=== PATIENT | male | born 1935 | race Caucasian/White ===

== ENCOUNTER 2018-11-14 17:08 | Emergency (ER) | payer OTHER ==
--- OUTSIDE RECORDS SUMMARY | 2018-11-14 17:10 | XMS REPORT | Clinical Summary ---
:1935 Author Organization [facility] Address [address] [place] [address] Care Team Providers Name Role Phone Unavailable Primary Care Provider Unavailable Allergies No Known Allergies Medications Medication Sig Dispensed Refills Start Date End Date Status traMADol (ULTRAM) Take 50 mg by mouth 0 Active 50 mg tablet every 6 (six) hours as needed for Pain. tiotropium Inhale 18 mcg by 0 Active (SPIRIVA) 18 mcg mouth via inhaler inhalation capsule daily. montelukast Take 10 mg by mouth 0 Active (SINGULAIR) 10 mg nightly. tablet losartan (COZAAR) Take 100 mg by mouth 0 Active 100 MG tablet daily. insulin glargine Inject 50 Units 0 Active (LANTUS) 100 subcutaneously unit/mL nightly Use as injectionIndication directed . s: type 2 diabetes mellitus insulin aspart Inject 25 Units 0 Active (NOVOLOG) 100 subcutaneously 3 unit/mL (three) times daily injectionIndication before meals. s: type 2 diabetes mellitus ezetimibe-simvastat Take 1 tablet by 0 Active in (VYTORIN) 10-10 mouth daily. mg per tablet budesonide-formoter Inhale 2 puffs by 0 Active ol (SYMBICORT) mouth via inhaler 2 160-4.5 (two) times daily. 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 Last Filed Vital Signs Not on file Plan of Treatment Not on file Results Not on fileafter 11/13/2017 Insurance Payer Benefit Plan / Subscriber ID Type Phone Address Group AETNA - MEDICARE AETNA MEDICARE HMO xxxxxxxx [phone] [address] [employer] C[employer] POS PPO [place] [id number] Advance Directives For more information, please contact:[address] [phone] Code Status Date Activated Date Inactivated Comments Full Code 01/23/2016 3:59 AM 02/08/2016 11:28 PM This code status was determined by: Patient
[2018-11-14] MEDS ORDERED: TETANUS & DIPHTHERIA TOX,ADULT 0.5 ML VIAL ONE (18:43)
--- NOTE | 2018-11-14 18:48 | RAD REPORT ---
EXAM DESCRIPTION: CT - Head Brain Wo Cont - 11/14/2018 6:31 pm CLINICAL HISTORY: Headache COMPARISON: CT head January 2009 TECHNIQUE: Axial 5 mm thick images of the head were obtained without IV contrast. All CT scans are performed using dose optimization technique as appropriate and may include automated exposure control or mA/KV adjustment according to patient size. FINDINGS: No intracranial hemorrhage, mass, edema or shift of mid-line structures. No acute infarcti on changes seen. No cortical edema or sulcal effacement. Moderate severity atrophy and chronic ischem ic changes are present progressive from 2008. Ventricles are in proportion to volume loss. Arterial t ree calcifications are present. Mastoid air cells and visualized portions of the paranasal sinuses are clear. No acute bony findings. IMPRESSION: No hemorrhage, mass or acute intracranial finding. Moderate severity atrophy and chronic ischemic change progressive from the 2008 comparison.
[2018-11-14] MEDS ORDERED: LIDOCAINE 1% MPF 30 ML VIAL ONE (19:14)
--- NOTE | 2018-11-14 19:25 | EDPHYS ---
Physician Documentation [facility] Name: Gonzalo Waldron Age: 82 yrs Sex: Male : 1935 Arrival Date: 11/14/2018 Time: 17:13 Bed 5 Private MD: ED Physician Vadim Grant HPI: 11/14 19:20 This 82 yrs old Male presents to ER via EMS with complaints of Laceration To pm1 Head. 19:20 The patient has a laceration related to: Sleeping occurred at home, The injury was pm1 accidental, Patient was sleeping on his recliner and he dreamed that he was falling. he got up to stop from falling and he slipped off his recliner and hit his head. No LOC, neck pain, vomiting. Laceration to left eyebrow and abrasion to left side of forehead. Onset: The symptoms/episode began/occurred just prior to arrival. Associated signs and symptoms: Pertinent negatives: deformity, dizziness, heavy bleeding, loss of consciousness, numbness distal to injury, suspected foreign body. The patient has not experienced similar symptoms in the past. Historical: - Allergies: 17:19 Tape; sg - PMHx: 17:19 COPD; Diabetes - NIDDM; Hyperlipidemia; Hypertension; Prostate Cancer; sg - Immunization history:: Adult Immunizations up to date. - Social history:: Smoking status: Patient/guardian denies using tobacco. - Ebola Screening: : Patient negative for fever greater than or equal to 101.5 degrees Fahrenheit, and additional compatible Ebola Virus Disease symptoms Patient denies exposure to infectious person Patient denies travel to an Ebola-affected area in the 21 days before illness onset No symptoms or risks identified at this time. ROS: 19:20 Constitutional: Negative for fever, chills, and weight loss, Eyes: Negative for injury, pm1 pain, redness, and discharge, ENT: Negative for injury, pain, and discharge, Neck: Negative for injury, pain, and swelling, Cardiovascular: Negative for chest pain, palpitations, and edema, Respiratory: Negative for shortness of breath, cough, wheezing, and pleuritic chest pain, Abdomen/GI: Negative for abdominal pain, nausea, vomiting, diarrhea, and constipation, Back: Negative for injury and pain, : Negative for injury, bleeding, discharge, and swelling, MS/Extremity: Negative for injury and deformity. 19:20 Neuro: Negative for headache, weakness, numbness, tingling, and seizure. 19:20 Skin: Positive for abrasion(s), laceration(s), of the face. Exam: 19:20 Constitutional: This is a well developed, well nourished patient who is awake, alert, pm1 and in no acute distress. 19:20 Eyes: Pupils equal round and reactive to light, extra-ocular motions intact. Lids and lashes normal. Conjunctiva and sclera are non-icteric and not injected. Cornea within normal limits. Periorbital areas with no swelling, redness, or edema. ENT: Nares patent. No nasal discharge, no septal abnormalities noted. Tympanic membranes are normal and external auditory canals are clear. Oropharynx with no redness, swelling, or masses, exudates, or evidence of obstruction, uvula midline. Mucous membranes moist. Neck: Trachea midline, no thyromegaly or masses palpated, and no cervical lymphadenopathy. Supple, full range of motion without nuchal rigidity, or vertebral point tenderness. No Meningismus. Chest/axilla: Normal chest wall appearance and motion. Nontender with no deformity. No lesions are appreciated. Cardiovascular: Regular rate and rhythm with a normal S1 and S2. No gallops, murmurs, or rubs. Normal PMI, no JVD. No pulse deficits. Respiratory: Lungs have equal breath sounds bilaterally, clear to auscultation and percussion. No rales, rhonchi or wheezes noted. No increased work of breathing, no retractions or nasal flaring. Abdomen/GI: Soft, non-tender, with normal bowel sounds. No distension or tympany. No guarding or rebound. No evidence of tenderness throughout. Back: No spinal tenderness. No costovertebral tenderness. Full range of motion. Skin: Warm, dry with normal turgor. Normal color with no rashes, no lesions, and no evidence of cellulitis. MS/ Extremity: Pulses equal, no cyanosis. Neurovascular intact. Full, normal range of motion. 19:20 Head/face: Noted is no obvious of injury or deformity except abrasion(s), that are mild, of the forehead, a laceration(s), 2 cm(s), of the inner aspect of left eyebrow and middle aspect of left eyebrow. 19:20 Neuro: Orientation: is normal, Motor: is normal, moves all fours, Gait: is steady, at a normal pace, without difficulty. Vital Signs: 17:13 BP 170 / 69; Pulse 98; Resp 18; Temp 97.9; Pulse Ox 100% on R/A; Pain 4/10; sg 18:45 BP 152 / 69; Pulse 89; Resp 19; Temp 97.9; Pulse Ox 100% on R/A; Pain 4/10; sg Laceration: 19:21 Wound Repair of 2cm ( 0.8in ) subcutaneous laceration to inner aspect of left eyebrow pm1 and middle aspect of left eyebrow. Linear shaped.. Distal neuro/vascular/tendon intact. Anesthesia: Local anesthetic administered with 2 mls of 1% lidocaine. Wound prep: Extensive cleansing with hibiclenz by pharmacy intake technician, Wound irrigation with saline by pharmacy intake technician, Wound explored extensively, Copious irrigation. Skin closed with 5 6-0 Prolene using simple sutures and sterile technique. Dressed with Neosporin. Patient tolerated well. MDM: 17:27 Patient medically screened. pm1 19:21 Data reviewed: vital signs. Data interpreted: Pulse oximetry: on room air is 100 %. pm1 Interpretation: normal. Counseling: I had a detailed discussion with the patient and/or guardian regarding: the historical points, exam findings, and any diagnostic results supporting the discharge/admit diagnosis, radiology results, the need for outpatient follow up, suture removal in 4-5 days, to return to the emergency department if symptoms worsen or persist or if there are any questions or concerns that arise at home. 11/14 17:32 Order name: CT Head Brain wo Cont; Complete Time: 18:54 pm1 11/14 18:58 Order name: Prolene, Sutures; Complete Time: 19:07 pm1 11/14 18:58 Order name: Dressing - Wound; Complete Time: 19:07 pm1 11/14 18:58 Order name: Gloves, Sterile; Complete Time: 19:07 pm1 11/14 18:58 Order name: Setup Suture Tray; Complete Time: 19:07 pm1 Administered Medications: 18:45 Drug: Tetanus-Diphtheria Toxoid Adult 0.5 ml {Family Services Manager: [employer]. Exp: 10/23/2020. Lot #: [id number]. } Route: IM; Site: right deltoid; 19:54 Follow up: Response: No adverse reaction ao 19:06 Drug: Lidocaine (1 %) 5 ml {Note: medication administered by Basil BREWER.} Volume: 5 sg ml; Route: Infiltration; 19:53 Follow up: Response: No adverse reaction ao Disposition: 11/14/18 19:24 Discharged to Home. Impression: Laceration without foreign body of unspecified part of head - left eyebrow, Abrasion of other part of head - forehead, Superficial injury of head. - Condition is Stable. - Discharge Instructions: Abrasion, Head Injury, Adult, Facial Laceration, Stitches, [place], or Adhesive Wound Closure. - Medication Reconciliation Form, Thank You Letter, Antibiotic Education, Prescription Opioid Use form. - Follow up: Emergency Department; When: As needed; Reason: Worsening of condition. Follow up: Private Physician; When: 4-5 days ; Reason: Recheck today's complaints, Continuance of care, Staple/Suture removal, Re-evaluation by your physician. - Problem is new. - Symptoms have improved. Addendum: 11/17/2018 06:56 Co-signature as Attending Physician, Vadim Grant MD I agree with the assessment and k dr plan of care. Signatures: Dispatcher [employer] EDMS Carlin Conrad RN RN sg Rittger, Kevin, MD MD [facility] Tyron Ulrich RN RN Basil Romero, CAREER SERVICES ASSISTANT CAREER SERVICES ASSISTANT pm1 Corrections: (The following items were deleted from the chart) 11/14 19:25 19:24 11/14/2018 19:24 Discharged to Home. Impression: Laceration without foreign body pm1 of unspecified part of head - left eyebrow; Abrasion of other part of head - forehead. Condition is Stable. Forms are Medication Reconciliation Form, Thank You Letter, Antibiotic Education, Prescription Opioid Use. Follow up: Emergency Department; When: As needed; Reason: Worsening of condition. Follow up: Private Physician; When: 4-5 days ; Reason: Recheck today's complaints, Continuance of care, Staple/Suture removal, Re-evaluation by your physician. Problem is new. Symptoms have improved. pm1 19:53 19:25 11/14/2018 19:24 Discharged to Home. Impression: Laceration without foreign body ao of unspecified part of head - left eyebrow; Abrasion of other part of head - forehead; Superficial injury of head. Condition is Stable. Discharge Instructions: Abrasion, Facial Laceration, Stitches, [place], or Adhesive Wound Closure, Head Injury, Adult. Forms are Medication Reconciliation Form, Thank You Letter, Antibiotic Education, Prescription Opioid Use. Follow up: Emergency Department; When: As needed; Reason: Worsening of condition. Follow up: Private Physician; When: 4-5 days ; Reason: Recheck today's complaints, Continuance of care, Staple/Suture removal, Re-evaluation by your physician. Problem is new. Symptoms have improved. pm1
--- NOTE | 2018-11-14 19:25 | ER ---
Nurse's Notes [facility] Name: Gonzalo Waldron Age: 82 yrs Sex: Male : 1935 Arrival Date: 11/14/2018 Time: 17:13 Bed 5 Private MD: Diagnosis: Laceration without foreign body of unspecified part of head-left eyebrow;Abrasion of other part of head-forehead;Superficial injury of head Presentation: 11/14 17:14 Presenting complaint: EMS states: pt was in his electric lift recliner, when the pt sg thinks he was dreaming and fell from the recliner by sliding down out of the recliner onto his knees and hitting his forehead and eyebrow on the concrete floor, pt sustained a laceration to the left eye brow and left side of forehead, pt denies LOC, denies blood thinners. Transition of care: patient was not received from another setting of care. Complicating Factors: There are no complicating factors for this patient. Onset of symptoms was November 14, 2018. Risk Assessment: Do you want to hurt yourself or someone else? Patient reports no desire to harm self or others. Initial Sepsis Screen: Does the patient meet any 2 criteria? No. Patient's initial sepsis screen is negative. Does the patient have a suspected source of infection? No. Patient's initial sepsis screen is negative. Care prior to arrival: None. 17:14 Method Of Arrival: EMS: [facility] sg 17:14 Acuity: MICAH 4 sg Historical: - Allergies: 17:19 Tape; sg - PMHx: 17:19 COPD; Diabetes - NIDDM; Hyperlipidemia; Hypertension; Prostate Cancer; sg - Immunization history:: Adult Immunizations up to date. - Social history:: Smoking status: Patient/guardian denies using tobacco. - Ebola Screening: : Patient negative for fever greater than or equal to 101.5 degrees Fahrenheit, and additional compatible Ebola Virus Disease symptoms Patient denies exposure to infectious person Patient denies travel to an Ebola-affected area in the 21 days before illness onset No symptoms or risks identified at this time. Screenin:35 Abuse screen: Denies threats or abuse. Denies injuries from another. Nutritional sg screening: No deficits noted. Tuberculosis screening: No symptoms or risk factors identified. Never had TB. Fall Risk Fall in past 12 months (25 points). No secondary diagnosis (0 pts). No IV (0 pts). Ambulatory Aid- None/Bed Rest/Nurse Assist (0 pts). Assessment: 17:35 General: Appears in no apparent distress. comfortable, well groomed, well developed, sg well nourished, Behavior is calm, cooperative, appropriate for age. Pain: Denies pain. Neuro: Level of Consciousness is awake, alert, obeys commands, Oriented to person, place, time, situation, Dean Of Student Services are equal bilaterally Moves all extremities. Full function Gait is steady, Speech is normal, Facial symmetry appears normal, Pupils are PERRLA. Cardiovascular: Capillary refill is brisk in bilateral fingers Patient's skin is warm and dry. Respiratory: Airway is patent Respiratory effort is even, unlabored, Respiratory pattern is regular, symmetrical, Breath sounds are clear. GI: Abdomen is round non-distended, obese, Reports tolerance of fluids, tolerance of food. : No signs and/or symptoms were reported regarding the genitourinary system. EENT: No signs and/or symptoms were reported regarding the EENT system. Derm: Skin is pink, warm \T\ dry. Musculoskeletal: No signs and/or symptoms reported regarding the musculoskeletal system. Injury Description: Laceration sustained to middle aspect of left eyebrow and outer aspect of left eyebrow is clean, superficial, 0.5 to 2.5 cm long, was sustained 30-60 minutes ago. is bleeding a small amount. 18:30 Reassessment: Patient appears in no apparent distress at this time. Patient and/or sg family updated on plan of care and expected duration. Pain level reassessed. Patient is alert, oriented x 3, equal unlabored respirations, skin warm/dry/pink. awaiting laceration repair at this time Patient denies pain at this time. Patient states feeling better. 19:16 General: Appears in no apparent distress. comfortable, well groomed, well developed, ao well nourished, Behavior is calm, cooperative, appropriate for age. Pain: Denies pain. Neuro: Level of Consciousness is awake, alert, obeys commands, Oriented to person, place, time, situation, Dean [employer] are equal bilaterally Moves all extremities. Full function Gait is steady, Speech is normal, Facial symmetry appears normal, Pupils are PERRLA. Cardiovascular: Capillary refill is brisk in bilateral fingers Patient's skin is warm and dry. Respiratory: Airway is patent Respiratory effort is even, unlabored, Respiratory pattern is regular, symmetrical, GI: Abdomen is round non-distended, obese. : No signs and/or symptoms were reported regarding the genitourinary system. EENT: No signs and/or symptoms were reported regarding the EENT system. Derm: Skin is pink, warm \T\ dry. Musculoskeletal: No signs and/or symptoms reported regarding the musculoskeletal system. Injury Description: Laceration sustained to top of head. 19:50 Reassessment: DC instructions given to patient. Patient agree with POC and to follow up ao PCP. Vital Signs: 17:13 BP 170 / 69; Pulse 98; Resp 18; Temp 97.9; Pulse Ox 100% on R/A; Pain 4/10; sg 18:45 BP 152 / 69; Pulse 89; Resp 19; Temp 97.9; Pulse Ox 100% on R/A; Pain 4/10; sg ED Course: 17:13 Patient arrived in ED. sg 17:13 Arm band placed on. sg 17:18 Triage completed. sg 17:18 Basil Lester, TREVON is PHCP. pm1 17:18 Vadim Grant MD is Attending Physician. pm1 17:35 No provider procedures requiring assistance completed. sg 18:30 CT completed. Patient tolerated procedure well. Patient moved to CT. Patient moved back nj from CT. 18:30 CT Head Brain wo Cont In Process Unspecified. EDMS 18:53 Carlin Conrad, RN is Primary Nurse. sg 19:00 Wound care: to abrasion, located on top of head and outer aspect of left eyebrow was sg cleaned with soap and water, dressed with Neosporin, 4X4s, Patient tolerated well. 19:52 Patient did not have IV access during this emergency room visit. ao 19:53 Patient has correct armband on for positive identification. ao Administered Medications: 18:45 Drug: Tetanus-Diphtheria Toxoid Adult 0.5 ml {Particle Board Supervisor: [employer]. Exp: 10/23/2020. Lot #: [id number]. } Route: IM; Site: right deltoid; 19:54 Follow up: Response: No adverse reaction ao 19:06 Drug: Lidocaine (1 %) 5 ml {Note: medication administered by Basil BREWER.} Volume: 5 sg ml; Route: Infiltration; 19:53 Follow up: Response: No adverse reaction ao Outcome: 19:24 Discharge ordered by MD. pm1 19:51 Discharged to home via wheelchair. ao 19:51 Condition: stable 19:51 Discharge instructions given to patient, significant other, Instructed on discharge instructions, follow up and referral plans. Demonstrated understanding of instructions, follow-up care, medications. 19:53 Patient left the ED. ao Signatures: Dispatcher [employer] EDMS Carlin Conrad RN RN sg Ortiz, Alex, RN RN ao Marinas, Patrick, GLASS BLOWING LATHE OPERATOR GLASS BLOWING LATHE OPERATOR pm1 Kilo Aguilera
[2018-11-14 19:59] VITALS: TEMP 97.9; O2SAT 100
[2018-11-14 20:00] VITALS: BP 152/69
== END 2018-11-14 19:53 | disposition home or self-care (01) ==
LOC: ER 17:08
PROC: 0JQ10ZZ Repair Face Subcutaneous Tissue and Fascia, Open Approach (ICD-10-PCS; principal; 2018-11-14)
DX: S01.112A Laceration without foreign body of left eyelid and periocular area, initial encounter (principal); S00.81XA Abrasion of other part of head, initial encounter; W07.XXXA Fall from chair, initial encounter; Y93.89 Activity, other specified; Y92.009 Unspecified place in unspecified non-institutional (private) residence as the place of occurrence of the external cause; Z23 Encounter for immunization; Z85.46 Personal history of malignant neoplasm of prostate; Z91.048 Other nonmedicinal substance allergy status; I10 Essential (primary) hypertension
CPT/HCPCS: 70450; 90714; 99284

== ENCOUNTER 2020-01-23 12:22 | Inpatient (IN) | payer OTHER ==
--- OUTSIDE RECORDS SUMMARY | 2020-01-23 12:24 | XMS REPORT ---
:1935 Author Organization [facility] t Address [address] [place] [address] [place] [id number] Care Team Providers Name Role Phone Unavailable Unavailable Unavailable Problems Condition Condition Condition Status Onset Resolution Last Treating Co mments Source Name Details Category Date Date Treatment Clinician Date Right Right Problem Active [facility] nerve pain nerve pain [facility] Morbid Morbid Problem Active [facility] obesity obesity [facility] - due to due to [facility] excess excess l calories calories Outpat i ent Clinics Other Other Problem Active [facility] chronic chronic [facility] - pain pain [facility] Pain, Pain, Diagnosis Active [facility] joint, joint, [facility] - knee, left knee, left Me mor[facility] l [facility] Pain in Pain in Diagnosis [facility] right knee [facility] - [facility] Primary Primary Diagnosis [facility] oste[facility]r osteoarthr [facility] - itis of itis of [facility] left knee left knee l Outpati ent Clinics Primary Primary Diagnosis Active [facility] osteoarthr osteoarthr Leila kes - itis of itis of [facility] right knee right knee l Outpati ent Clinics Sciatica, Sciatica, Problem Active [facility] left side left side [facility] - [facility] Allergies, Adverse Reactions, Alerts This patient has no known allergies or adverse reactions. Medications Ordered Filled Start Stop Current Ordering Indication Dosage Frequency Signature Comments Components Source Medication Medication Date Date Medication? Clinician (SIG) Name Name Lantus Lacyus Yes Ihsan INJECT [address] [facility] [address] SoloStar SoloStar Martin UNITS Luke s - UNDER THE Memoria SKIN EVERY l MORNING Outpati BEFORE ent BREAKFAST Clinics AND AT BEDTIME AT SAME TIME DAILY Acetaminoph Acetaminoph Yes Ihsan (Schedule [facility] en-Codeine en-Codeine Martin III Drug) Lusara - #3 #3 TAKE 1 [facility] TABLET BY l MOUTH Outpati TWICE A ent DAY Clinics NEEDED FOR JOINT PAIN NovoLog NovoLog Yes Ihsan INJECT [address] Flexpen Flexpen [facility] UNITS [facility] - SUB-C Memoria BEFORE l EACH MAJOR Outpati MEAL ent Clinics Anoro Anoro Yes Ihsan TAKE [address] [facility] Ellipta Ellipta Martin PUFF BY Luke [facility] - MOUTH Memoria EVERY DAY l Outpati ent Clinics Atorvastati Atorvastati Yes Ihsan TAKE [address] [facility] n Calcium n Calcium Martin TABLET BY [facility] - MOUTH AT [facility] BEDTIME l Outpati ent Clinics Furosemide Furosemide Yes Ihsan TAKE [address] [facility] TABLET [facility] WITH [facility] & Outpati 1/2 TABLET ent EVERY Clinics OTHER DAY Fenofibrate Fenofibrate Yes Ihsan TAKE [address] [facility] Martin TABLET [facility] - [facility] Procedures This patient has no known procedures. Encounters Start End Encounter Admission Attending Care Care Encounter Source Date/Time Date/Time Type Type Clinicians Facility Department ID 2018-05-15 2018-05-15 [facility] [id number] [facility] 14:[facility]00 14[facility]00[facility]00 [facility] 2018-05-08 2018-05-08 [facility] [id number] [facility] 15:[facility]:00 15:00:00 t [facility] 2018-05-01 2018-05-01 [facility] [id number] [facility] 14:30:00 14:30:00 t [facility] 2018-04-21 2018-04-21 [facility] [id number] [facility] 13:22:00 13:22:00 t [facility] 2018-04-02 2018-04-02 [facility] [id number] [facility] 10:30:00 10:30:00 t [facility] Results This patient has no known results.
--- OUTSIDE RECORDS SUMMARY | 2020-01-23 12:24 | XMS REPORT ---
:1935 Author Organization eClinicalWorks Care Team Providers Name Role Phone Ihsan Martin Provider Role Unavailable Allergies, Adverse Reactions, Alerts Substance Reaction Event Type N.K.D.A. Info Not Available Non Drug Allergy Problems Problem Type Condition Code Onset Dates Condition Statu s Problem Right sided sciatica M54.31 Active Problem Morbid obesity due to excess E66.01 Active calories Problem Right sciatic nerve pain M54.31 Act john Problem Other chronic pain G89.29 Active Problem Pain, joint, knee, left M25.562 Acti ve Problem Pain in right knee M25.561 Active Problem Primary osteoarthritis of left knee M17.12 Active Problem Primary osteoarthritis of right M17.11 Active knee Problem Pain in left knee M25.562 Active Problem Sciatica, left side M54.32 Active Assessment Sciatica, left side M54.32 Active Assessment Morbid obesity due to excess E66.01 Active calories Assessment Right sided sciatica M54.31 Active Assessment Pain in right knee M25.561 Active Assessment Other chronic pain G89.29 Active Assessment Primary osteoarthritis of right M17.11 Active knee Assessment Pain in left knee M25.562 Active Assessment Primary osteoarthritis of left knee M17.12 Active Medications Medication Code Code Instructions Start End Status Dosage System Date Date Lantus SoloStar [facility] 15276264832 100 UNIT/ML Active INJECT 50 Subcutaneous UNITS UNDER THE SKIN EVERY MORNING BEFORE BREAKFAST AND AT BEDTIME AT SAME TIME DAILY Acetaminophen-C [facility] 95162110324 300-30 MG Oral Activ e (Schedule odeine #3 III Drug) TAKE 1 TABLET BY MOUTH TWICE A DAY NEEDED FOR JOINT PAIN NovoLog Flexpen ND 68600720587 100 UNIT/ML Active INJECT 20 Subcutaneous UNITS SUB-C BEFORE EACH MAJOR MEAL Anoro Ellipta [facility] 42014200189 62.5-25 MCG/INH Active TAKE 1 PUFF Inhalation BY MOUTH EVERY DAY Atorvastatin ND 15619881512 40 MG Oral Active TAKE 1 Calcium TABLET BY MOUTH AT BEDTIME Furosemide ND 36000851819 40 MG Oral Active TAKE 1 TABLET BY MOUTH ALTERNATE WITH 1 & 1/2 TABLET EVERY OTHER DAY Fenofibrate [facility] 48157748215 145 MG Oral Active TAKE 1 TABLET EVERY DAY Results No Known Results Summary Purpose eClinicalWorks Submission
--- OUTSIDE RECORDS SUMMARY | 2020-01-23 12:24 | XMS REPORT | Clinical Summary ---
:1935 Author Organization [facility] Address [address] [place] [address] Care Team Providers Name Role Phone Unavailable Primary Care Provider Unavailable Allergies No Known Allergies Medications Medication Sig Dispensed Refills Start Date End Date Status traMADol (ULTRAM) Take 50 mg by mouth 0 Active 50 mg tablet every 6 (six) hours as needed for Pain. 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
--- OUTSIDE RECORDS SUMMARY | 2020-01-23 12:25 | XMS REPORT ---
[...] Problem Sciatica, left side M54.32 Active Assessment Primary osteoarthritis of left knee M17.12 Active Assessment Pain, joint, knee, left M25.562 Acti ve Assessment Pain in right knee M25.561 Active Assessment Primary osteoarthritis of right M17.11 Active knee Medications Medication Code Code Instructions Start End Status Dosage System Date Date Acetaminophen-C [facility] 96768860903 300-30 MG Oral Activ e (Schedule odeine #3 III Drug) TAKE 1 TABLET BY MOUTH TWICE A DAY NEEDED FOR JOINT PAIN Anoro Ellipta [facility] 61428359132 62.5-25 MCG/INH Active TAKE 1 PUFF Inhalation BY MOUTH EVERY DAY NovoLog Flexpen [facility] 72491197362 100 UNIT/ML Active INJECT 20 Subcutaneous UNITS SUB-C BEFORE EACH MAJOR MEAL Furosemide ND 58239124783 40 MG Oral Active TAKE 1 TABLET BY MOUTH ALTERNATE WITH 1 & 1/2 TABLET EVERY OTHER DAY Atorvastatin ND 98981881431 40 MG Oral Active TAKE 1 Calcium TABLET BY MOUTH AT BEDTIME Lantus SoloStar ND 37244477967 100 UNIT/ML Active INJECT 50 Subcutaneous UNITS UNDER THE SKIN EVERY MORNING BEFORE BREAKFAST AND AT BEDTIME AT SAME TIME DAILY Fenofibrate [facility] 36667103829 145 MG Oral Active TAKE 1 TABLET EVERY DAY Results No Known Results Summary Purpose eClinicalWorks Submission
--- OUTSIDE RECORDS SUMMARY | 2020-01-23 12:25 | XMS REPORT ---
:1935 Author Organization eClinicalWorks Care Team Providers Name Role Phone Ihsan Martin Provider Role Unavailable Allergies No Known Allergies Problems Problem Type Condition Code Onset Dates [...] Active Problem Sciatica, left side M54.32 Active Medications No Known Medications Results No Known Results Summary Purpose [employer]es[employer] Submission
--- OUTSIDE RECORDS SUMMARY | 2020-01-23 12:25 | XMS REPORT ---
[...] Start End Status Dosage System Date Date Furosemide [facility] 80076578973 40 MG Oral Active TAKE 1 TABLET BY MOUTH ALTERNATE WITH 1 & 1/2 TABLET EVERY OTHER DAY Lantus SoloStar [facility] 31937822006 100 UNIT/ML Active INJECT 50 Subcutaneous UNITS UNDER THE SKIN EVERY MORNING BEFORE BREAKFAST AND AT BEDTIME AT SAME TIME DAILY Anoro Ellipta [facility] 56795555418 62.5-25 MCG/INH Active TAKE 1 PUFF Inhalation BY MOUTH EVERY DAY Acetaminophen-C [facility] 71638666437 300-30 MG Oral Activ e (Schedule odeine #3 III Drug) TAKE 1 TABLET BY MOUTH TWICE A DAY NEEDED FOR JOINT PAIN Fenofibrate [facility] 06928966559 145 MG Oral Active TAKE 1 TABLET EVERY DAY Atorvastatin [facility] 43434373775 40 MG Oral Active TAKE 1 Calcium TABLET BY MOUTH AT BEDTIME NovoLog Flexpen [facility] 71883909157 100 UNIT/ML Active INJECT 20 Subcutaneous UNITS SUB-C BEFORE EACH MAJOR MEAL Results No Known Results Summary Purpose eClinicalWorks Submission
--- OUTSIDE RECORDS SUMMARY | 2020-01-23 12:25 | XMS REPORT ---
[...] Start End Status Dosage System Date Date Anoro Ellipta [facility] 14116581526 62.5-25 MCG/INH Active TAKE 1 PUFF Inhalation BY MOUTH EVERY DAY Atorvastatin [facility] 31747914879 40 MG Oral Active TAKE 1 Calcium TABLET BY MOUTH AT BEDTIME Fenofibrate [facility] 00924666743 145 MG Oral Active TAKE 1 TABLET EVERY DAY Acetaminophen-C [facility] 70845786010 300-30 MG Oral Activ e (Schedule odeine #3 III Drug) TAKE 1 TABLET BY MOUTH TWICE A DAY NEEDED FOR JOINT PAIN Furosemide ND 63345609669 40 MG Oral Active TAKE 1 TABLET BY MOUTH ALTERNATE WITH 1 & 1/2 TABLET EVERY OTHER DAY Lantus SoloStar [facility] 28802671821 100 UNIT/ML Active INJECT 50 Subcutaneous UNITS UNDER THE SKIN EVERY MORNING BEFORE BREAKFAST AND AT BEDTIME AT SAME TIME DAILY NovoLog Flexpen ND 15298514724 100 UNIT/ML Active INJECT 20 Subcutaneous UNITS SUB-C BEFORE EACH MAJOR MEAL Results No Known Results Summary Purpose eClinicalWorks Submission
[2020-01-23 12:58] LABS: Basophils % 0.1 % (0-1.3); Lymphocytes % 4.2 % (15.3-44.8); MPV 10.2 fL (7.6-11.3); RBC Red Blood Cell Count 4.15 M/uL (4.33-5.43)
[2020-01-23] MEDS ORDERED: NA CHLORIDE 0.9% 1,000 ML ONE ×2 (13:02→13:35)
--- NOTE | 2020-01-23 13:06 | RAD REPORT ---
EXAM DESCRIPTION: RAD - Chest Single View - 01/23/2020 12:44 pm CLINICAL HISTORY: COPD;Fever COMPARISON: September 2011 TECHNIQUE: AP portable chest image was obtained 01/23/2020 12:44 pm . FINDINGS: Lung volumes are slightly reduced from comparison. No focal mass, infiltrate or failure fi nding. Interstitial pattern is not substantially different. Heart and vasculature are normal. No essie urable pleural effusion and no pneumothorax. No acute bony abnormality seen. No acute aortic findings suspected. IMPRESSION: No acute cardiopulmonary process.
[2020-01-23] MEDS ORDERED: HYDROCODONE/APAP 10/325 TAB ONE (13:07)
[2020-01-23 13:18] LABS: BUN Blood Urea Nitrogen 57 mg/dL (7-18); Bicarbonate 23 mmol/L (21-32); Creatine Phosphokinase 893 U/L (39-308); Glucose Level 178 mg/dL (74-106); Potassium 4.5 mmol/L (3.5-5.1); Sodium Level 137 mmol/L (136-145); Troponin (Emerg Dept Use Only) < 0.02 ng/mL (0.0-0.045)
[2020-01-23 13:33] LABS: Blood Morphology Comment NOT SEEN (NOT SEEN); Platelet Estimate ADEQ
[2020-01-23] MEDS ORDERED: CEFTRIAXONE/SWI 1gm 1 GM/10 ML SYR ONE (13:35)
[2020-01-23 13:48] LABS: Urine Blood 2+ (NEG); Urine Glucose NEGATIVE (NEG); Urine Protein 1+ (NEG); Urine pH 6.5 (5.0-7.0)
--- NOTE | 2020-01-23 14:41 | RAD REPORT ---
EXAM DESCRIPTION: CT - Abdomen Pelvis Wo Contrast - 01/23/2020 2:20 pm CLINICAL HISTORY: fever, lower back pain Diaphoretic, dysuria, history of prostate cancer, diabetes and COPD COMPARISON: Abdomen Pelvis Wo Contrast dated 09/22/2019 TECHNIQUE: Axial [address] imaging of the abdomen and pelvis was performed without IV contrast. No IV contrast was given because of allergy, abnormal renal function, patient refusal or physician re quest. No oral contrast given. All CT scans are performed using dose optimization technique as appropriate and may include automated exposure control or mA/KV adjustment according to patient size. FINDINGS: No suspicious findings in the lung bases. No focal liver lesion. Attenuation is borderline fatty infiltrated. No spleen or pancreatic acute fin dings. There is pancreatic parenchymal volume loss. Multiple stones are seen in the contracted gallbl adder. No wall thickening or edema suspected. No biliary tree dilatation. No hydronephrosis or suspicious renal mass. Lobulated renal contours match comparison. Mild symmetric perinephric stranding pattern has not changed. No significant adrenal finding. Isodense renal masses and pyelonephritis cannot be excluded in the absence of IV contrast. Urinary bladder is contracted l imiting assessment. No wall thickening, mass or calculi suspected. Prostatectomy surgical changes are present. No pelvic floor mass or lymphadenopathy. No dilated bowel loops or bowel wall thickening. No appendicitis. Diverticulosis is present but no di verticulitis. Moderate stool volume throughout most of the colon. No free air, free fluid or inflammatory stranding. No hernia, mass or bulky lymphadenopathy. Disc and bony degenerative changes are present throughout the lower thoracic spine and lumbar spine. Sclerotic focus inferior T9 body is believed be part of degenerative change. No clearly pathologic rj ne process. IMPRESSION: Noncontrast CT abdomen and pelvis imaging shows no acute or emergent finding. Cholelithiasis as previously seen. No active gallbladder process evident. No significant changes from the September 22 study. Full assessment is limited is the absence of IV contrast.
--- NOTE | 2020-01-23 14:55 | ER ---
Nurse's Notes [facility] Name: Gonzalo Waldron Age: 84 yrs Sex: Male : 1935 Arrival Date: 01/23/2020 Time: 12:24 Bed 8 Private MD: Diagnosis: Fever, unspecified;Sepsis, unspecified organism;Chronic obstructive pulmonary disease, unspecified Presentation: 01/22 12:24 Chief complaint: EMS states: 84 yr. old male, EMS was called out for possible seizure, rb1 when EMS arrived family told them that the pt. was talking to them during the possible seizure. Pt. was diaphoretic, c/o weakness, increase in frequency of urination. BP 140/70, P 130-140's, T 100.3, O2 92-93%, Cap 25 EMS put him on 3 L NC and Cap increased to 30, BGL 140. History of COPD, diabetes. IV 18 G L AC. Administered Tylenol 1 gram PO x 1. Coronavirus screen: Patient reports a cough. Patient reports shortness of breath or difficulty breathing. Patient reports a measured and/or subjective temperature greater than 100.4F. Patient denies travel on a cruise ship or to a country the [facility] currently lists as an affected area. Patient denies contact with known and/or suspected case of COVID-19. Ebola Screen: Patient negative for fever greater than or equal to 101.5 degrees Fahrenheit, and additional compatible Ebola Virus Disease symptoms. Initial Sepsis Screen: Does the patient meet any 2 criteria? RR > 20 per min. HR > 90 bpm. Yes Does the patient have a suspected source of infection? Yes: Dysuria/Frequency/Urgency/UTI. Risk Assessment: Do you want to hurt yourself or someone else? Patient reports no desire to harm self or others. Onset of symptoms was January 22, 2020. 12:24 Method Of Arrival: EMS: [facility] rb1 12:24 Acuity: MICAH 3 rb1 12:54 Acuity: MICAH 2 iw Triage Assessment: 12:24 General: Appears uncomfortable, Behavior is calm, cooperative, Reports fever for rb1 feeling ill for last night. Neuro: Level of Consciousness is awake, alert, obeys commands, Oriented to person, place, time, situation. Cardiovascular: Capillary refill < 3 seconds. Respiratory: Reports shortness of breath pt. reports he is always SOB due to his COPD Airway is patent Respiratory effort is labored, Respiratory pattern is regular, symmetrical. GI: No signs and/or symptoms were reported involving the gastrointestinal system. : Reports urinary frequency. Derm: Skin is dusky, bilateral lower edema. Musculoskeletal: Swelling present in right leg and left leg. Historical: - Allergies: 12:24 Tape; rb1 - Home Meds: 12:24 Tricor 145 mg Oral tab 1 tab once daily [Active]; Singulair 10 mg Oral tab 1 tab once rb1 daily [Active]; multivitamin Oral [Active]; Novolog 25 units Sub-Q three times a day [Active]; Basaglar 50 units daily [Active]; Tylenol #3 Oral [Active]; furosemide 80 mg Oral tab 1 tab once daily [Active]; Lipitor 40 mg Oral tab 1 tab once daily [Active]; - PMHx: 12:24 COPD; Diabetes - NIDDM; Hyperlipidemia; Hypertension; Prostate Cancer; rb1 - PSHx: 12:24 prostatectomy; rb1 - Immunization history:: Adult Immunizations up to date. - Social history:: Smoking status: Patient/guardian denies using. - Family history:: not pertinent. - Hospitalizations: : No recent hospitalization is reported. Screenin:24 Abuse screen: Denies threats or abuse. Nutritional screening: No deficits noted. rb1 Tuberculosis screening: No symptoms or risk factors identified. Fall Risk None identified. Assessment: 12:24 General: See triage assessment. rb1 13:20 Reassessment: Patient appears in no apparent distress at this time. Patient and/or rb1 family updated on plan of care and expected duration. Pain level reassessed. Patient is alert, oriented x 3, equal unlabored respirations, skin warm/dry/pink. 14:15 Reassessment: Pt. is in CT. rb1 15:00 Reassessment: Patient appears in no apparent distress at this time. pt. was resting rb1 with eyes closed, respirations even, unlabored. Pt. tolerated the COVID test well. 16:00 Reassessment: Patient appears in no apparent distress at this time. Patient and/or rb1 family updated on plan of care and expected duration. Pain level reassessed. Patient is alert, oriented x 3, equal unlabored respirations, skin warm/dry/pink. 16:45 Reassessment: Gave report to JEFF Villanueva. Information from the [facility] was given. All rb1 questions asked and answered. 17:45 Reassessment: Patient appears in no apparent distress at this time. Pt. resting with rb1 eyes closed, respirations even, unlabored. 18:30 Reassessment: Patient appears in no apparent distress at this time. No changes from rb1 previously documented assessment. Vital Signs: 12:24 BP 175 / 56; Pulse 127; Resp 24; Temp 98.8; Pulse Ox 96% on R/A; Weight 135.62 kg (R); rb1 Height 5 ft. 9 in. (175.26 cm) (R); 13:20 BP 152 / 70; Pulse 119; Resp 23; Pulse Ox 97% ; rb1 14:15 rb1 14:34 BP 168 / 53; Pulse 103; Resp 29; Pulse Ox 95% on R/A; rb1 15:10 BP 145 / 62; Pulse 103; Resp 23; Pulse Ox 95% on 15% Venturi mask; rb1 16:20 BP 133 / 57; Pulse 103; Resp 22; Pulse Ox 95% on R/A; rb1 17:00 BP 141 / 61; Pulse 101; Resp 19; Pulse Ox 96% ; mg2 18:00 BP 151 / 69; Pulse 107; Resp 23; Pulse Ox 95% ; mg2 18:30 BP 139 / 65; Pulse 110; Resp 17; Temp 95; Pulse Ox 96% ; mg2 12:24 Body Mass Index 44.15 (135.62 kg, 175.26 cm) rb1 14:[address] rb1 ED Course: 12:24 Patient arrived in ED. rn 12:24 Clement Gutierrez MD is Attending Physician. rn 12:24 Arm band placed on right wrist. rb1 12:24 Patient has correct armband on for positive identification. Bed in low position. Call rb1 light in reach. Side rails up X2. flat locker on. Pulse ox on. NIBP on. Warm blanket given. 12:24 Maintain EMS IV. Dressing intact. Site clean \T\ dry. Gauge \T\ site: 18 G L AC. rb 1 12:27 Danni Galaviz, RN is Primary Nurse. rb1 12:30 IV with fluids infusing freely, without good blood return, IV discontinued, intact, iw bleeding controlled, No redness/swelling at site. Pressure dressing applied. 12:44 Chest Single View XRAY In Process Unspecified. EDMS 12:45 Initial lab(s) drawn, by me, sent to lab. First set of blood cultures drawn. Inserted iw saline lock: 20 gauge in right antecubital area, using aseptic technique. 12:47 Triage completed. rb1 13:13 Inserted saline lock: 20 gauge in left antecubital area, using aseptic technique. iw 14:20 CT completed. Patient tolerated procedure well. Patient moved back from CT. bq 14:20 CT Abd/Pelvis - Without Contrast In Process Unspecified. EDMS 14:54 Izaiah Segal MD is Hospitalizing Provider. rn 15:29 CT completed. Patient tolerated procedure well. Patient moved back from CT. bq 18:30 No provider procedures requiring assistance completed. Patient admitted, IV remains in rb1 place. 19:28 No provider procedures requiring assistance completed. mg2 Administered Medications: 12:56 Drug: NS 0.9% 1000 ml Route: IV; Rate: 1000 ml; Site: right antecubital; rb1 13:03 Drug: [place] 10 mg-325 mg 1 tabs Route: PO; rb1 13:40 Follow up: Response: No adverse reaction; Pain is decreased rb1 13:40 Drug: NS 0.9% 1000 ml Route: IV; Rate: 1000 ml; Site: right antecubital; rb1 13:40 Drug: Rocephin 1 grams Route: IV; Rate: calculated rate; Site: right antecubital; rb1 Outcome: 14:54 Decision to Hospitalize by Provider. rn 18:30 Admitted to Tele accompanied by [facility], via stretcher, room 412, with chart, Report rb1 called to JEFF Villanueva 18:30 Condition: stable 18:30 Instructed on the need for admit. 18:55 Patient left the ED. iw Signatures: Dispatcher [employer] EDMS Antonia Gilman Irene, RN RN iw Clement Gutierrez MD MD rn Barber, Rebecca, RN RN rb1 Ede Mcfadden RN RN mg2
--- NOTE | 2020-01-23 14:55 | EDPHYS ---
Physician Documentation [facility] Name: Gonzalo Waldron Age: 84 yrs Sex: Male : 1935 Arrival Date: 01/23/2020 Time: 12:24 Bed 8 Private MD: ED Physician Clement Gutierrez HPI: 01/22 12:28 This 84 yrs old Male presents to ER via Unassigned with complaints of fever. rn 12:28 The patient reports fever. Onset: The symptoms/episode began/occurred last night. rn Modifying factors: there are no obvious modifying factors. Associated signs and symptoms: Pertinent negatives: abdominal pain, altered mental status, hemoptysis, runny nose, skin rash, swelling. Severity of symptoms: At their worst the symptoms were mild in the emergency department the symptoms are unchanged. It is unknown whether or not the patient has had similar symptoms in the past. Per EMS, called for chills, night sweats, not feeling well, fever, began last night. Pt cannot localize a source of infection. Denies new cough or sob/chest pain/abd pain/vomiting/diarrhea/skin rash. Reports feels very thirsty. . Historical: - Allergies: 12:24 Tape; rb1 - Home Meds: 12:24 Tricor 145 mg Oral tab 1 tab once daily [Active]; Singulair 10 mg Oral tab 1 tab once rb1 daily [Active]; multivitamin Oral [Active]; Novolog 25 units Sub-Q three times a day [Active]; Basaglar 50 units daily [Active]; Tylenol #3 Oral [Active]; furosemide 80 mg Oral tab 1 tab once daily [Active]; Lipitor 40 mg Oral tab 1 tab once daily [Active]; - PMHx: 12:24 COPD; Diabetes - NIDDM; Hyperlipidemia; Hypertension; Prostate Cancer; rb1 - PSHx: 12:24 prostatectomy; rb1 - Immunization history:: Adult Immunizations up to date. - Social history:: Smoking status: Patient/guardian denies using. - Family history:: not pertinent. - Hospitalizations: : No recent hospitalization is reported. ROS: 12:28 Constitutional: + fever and chills Eyes: Negative for injury, pain, redness, and rn mds, ENT: Negative for injury, pain, and discharge, Neck: Negative for injury, pain, and swelling, Cardiovascular: Negative for chest pain, palpitations, and edema, Respiratory: Negative for shortness of breath, cough, wheezing, and pleuritic chest pain, Abdomen/GI: Negative for abdominal pain, nausea, vomiting, diarrhea, and constipation, MS/Extremity: Negative for injury and deformity, Skin: Negative for injury, rash, and discoloration, Neuro: + generalized weakness Exam: 12:32 Constitutional: This is a well developed, well nourished patient who is awake, alert rn Head/Face: Normocephalic, atraumatic. ENT: dry MM, no stridor Neck: Trachea midline, no masses palpated. Supple, full range of motion without nuchal rigidity, or vertebral point tenderness. No Meningismus. Cardiovascular: Tachycardic, regular Respiratory: + tachypnea, diminished breath sounds at bases. Abdomen/GI: Soft, non-tender, with normal bowel sounds. No distension or tympany. No guarding or rebound. No evidence of tenderness throughout. Skin: Warm, dry, no evidence of cellulitis MS/ Extremity: Pulses equal, no cyanosis. Neurovascular intact. Full, normal range of motion. Equal circumference. Neuro: Awake and alert, GCS 15, oriented to person, place, time, and situation. Cranial nerves II-XII grossly intact. Motor strength 5/5 in all extremities. Sensory grossly intact. 12:39 ECG was reviewed by the Attending Physician. rn Vital Signs: 12:24 BP 175 / 56; Pulse 127; Resp 24; Temp 98.8; Pulse Ox 96% on R/A; Weight 135.62 kg (R); rb1 Height 5 ft. 9 in. (175.26 cm) (R); 13:20 BP 152 / 70; Pulse 119; Resp 23; Pulse Ox 97% ; rb1 14:15 rb1 14:34 BP 168 / 53; Pulse 103; Resp 29; Pulse Ox 95% on R/A; rb1 15:10 BP 145 / 62; Pulse 103; Resp 23; Pulse Ox 95% on 15% Venturi mask; rb1 16:20 BP 133 / 57; Pulse 103; Resp 22; Pulse Ox 95% on R/A; rb1 17:00 BP 141 / 61; Pulse 101; Resp 19; Pulse Ox 96% ; mg2 18:00 BP 151 / 69; Pulse 107; Resp 23; Pulse Ox 95% ; mg2 18:30 BP 139 / 65; Pulse 110; Resp 17; Temp 95; Pulse Ox 96% ; mg2 12:24 Body Mass Index 44.15 (135.62 kg, 175.26 cm) rb1 14:[address] rb1 MDM: 12:24 Patient medically screened. rn 14:53 Differential diagnosis: viral Infection, bacterial infection, URI, pneumonia UTI, rn gastroenteritis, COVID-19. Data reviewed: vital signs, nurses notes, lab test result(s), radiologic studies, CT scan, plain films, and as a result, I will admit patient. Counseling: I had a detailed discussion with the patient and/or guardian regarding: the historical points, exam findings, and any diagnostic results supporting the discharge/admit diagnosis, lab results, radiology results, the need for further work-up and treatment in the hospital. Response to treatment: the patient's symptoms have mildly improved after treatment, and as a result, I will admit patient. Admission orders: after a detailed discussion of the patient's condition and case, the admit orders are written by me. ED course: Consulted with Dr. Segal, requests COVID swab, CT chest, and Zosyn Q8 hours. . 01/22 12:26 Order name: Urine Culture 01/22 12:26 Order name: Basic Metabolic Panel 01/22 12:26 Order name: Blood Culture Adult (2) 01/22 12:26 Order name: CBC with Diff; Complete Time: 13:45 01/22 12:26 Order name: CPK; Complete Time: 13:20 01/22 12:26 Order name: Lactate; Complete Time: 13:20 01/22 12:26 Order name: Procalcitonin; Complete Time: 13:45 01/22 12:26 Order name: Troponin (emerg Dept Use Only); Complete Time: 13:20 01/22 12:26 Order name: Urine Microscopic Only 01/22 12:26 Order name: Flu; Complete Time: 13:45 01/22 12:26 Order name: Strep; Complete Time: 13:45 01/22 12:27 Order name: Urine Culture [facility] 01/22 12:27 Order name: Basic Metabolic Panel; Complete Time: 13:20 [facility] 01/22 13:32 Order name: Throat Culture [facility] 01/22 12:26 Order name: Chest Single View XRAY; Complete Time: 13:08 rn 01/22 12:26 Order name: Accucheck; Complete Time: 13:59 rn 01/22 12:26 Order name: Cardiac monitoring; Complete Time: 12:54 rn 01/22 12:26 Order name: EKG - Nurse/Tech; Complete Time: 12:54 rn 01/22 12:26 Order name: IV Saline Lock - Large Bore; Complete Time: 12:54 rn 01/22 12:26 Order name: Labs collected and sent; Complete Time: 12:54 rn 01/22 13:23 Order name: CT Abd/Pelvis - Without Contrast; Complete Time: 14:44 rn 01/22 13:33 Order name: Manual Differential EDAZ 01/22 13:46 Order name: Urine Dipstick--Ancillary (enter results); Complete Time: 13:51 tt3 01/22 14:47 Order name: COVID-19 rn 01/22 14:51 Order name: CT Chest Wo Con rn 01/22 16:21 Order name: CT EDAZ 01/22 12:26 Order name: O2 Per Protocol; Complete Time: 12:54 rn 01/22 12:26 Order name: O2 Sat Monitoring; Complete Time: 12:54 rn 01/22 12:26 Order name: Urine Dipstick-Ancillary (obtain specimen); Complete Time: 13:59 rn EC:39 Rate is 126 beats/min. Rhythm is regular. Left axis deviation noted. QRS is positive in rn lead I and negative in lead aVF. VT interval is normal. QT interval is normal. No Q waves. T waves are Normal. No ST changes noted. Clinical impression: Sinus tachycardia. Interpreted by me. Reviewed by me. Administered Medications: 12:56 Drug: NS 0.9% 1000 ml Route: IV; Rate: 1000 ml; Site: right antecubital; rb1 13:03 Drug: [place] 10 mg-325 mg 1 tabs Route: PO; rb1 13:40 Follow up: Response: No adverse reaction; Pain is decreased rb1 13:40 Drug: NS 0.9% 1000 ml Route: IV; Rate: 1000 ml; Site: right antecubital; rb1 13:40 Drug: Rocephin 1 grams Route: IV; Rate: calculated rate; Site: right antecubital; rb1 Disposition: 01/23/20 14:54 Hospitalization ordered by Izaiah Segal for Inpatient Admission. Preliminary diagnosis are Fever, unspecified, Sepsis, unspecified organism, Chronic obstructive pulmonary disease, unspecified. - Bed requested for Telemetry/MedSurg (Inpatient). - Status is Inpatient Admission. iw - Condition is Stable. - Problem is new. - Symptoms have improved. Critical care time excluding procedures: 14:53 Critical care time: Bedside Care: 25 minutes, Consultation: 5 minutes. Total time: 30 rn minutes Signatures: Dispatcher [employer] EDJessica Vo, RN RN iw Clement Gutierrez MD MD rn Barber, Rebecca, RN RN rb1 Clarita Caballero Corrections: (The following items were deleted from the chart) 12:32 12:28 Constitutional: + fever and chills rn rn 12:35 12:32 Constitutional: This is a well developed, well nourished patient who is awake, rn alert Head/Face: Normocephalic, atraumatic. rn 15:42 14:54 Hospitalization Ordered by Izaiah Segal MD for Inpatient Admission. Preliminary eb diagnosis is Fever, unspecified; Sepsis, unspecified organism; Chronic obstructive pulmonary disease, unspecified. Bed requested for Telemetry/MedSurg (Inpatient). Status is Inpatient Admission. Condition is Stable. Problem is new. Symptoms have improved. rn 18:55 15:42 01/23/2020 14:54 Hospitalization Ordered by Izaiah Segal MD for Inpatient iw Admission. Preliminary diagnosis is Fever, unspecified; Sepsis, unspecified organism; Chronic obstructive pulmonary disease, unspecified. Bed requested for Telemetry/MedSurg (Inpatient). Status is Inpatient Admission. Condition is Stable. Problem is new. Symptoms have improved. eb
--- NOTE | 2020-01-23 16:18 | RAD REPORT ---
EXAM DESCRIPTION: CT - Thorax Wo Con - 01/23/2020 3:30 pm CLINICAL HISTORY: COPD, requested by Jose Fullercox monett of breath COMPARISON: THORAX WO CONTRAST dated 04/18/2010; Abdomen Pelvis Wo Contrast dated 01/23/2020; Chest Single View dated 01/23/2020 TECHNIQUE: Axial 5 mm thick images of the chest were obtained without IV contrast. All CT scans are performed using dose optimization technique as appropriate and may include automated exposure control or mA/KV adjustment according to patient size. FINDINGS: No mass or infiltrate in the lung parenchyma. Minimal scarring or atelectasis in each post erior gutter and along the posterior lung ndiaye. No pleural thickening or pleural effusion. No pneum othorax. No abnormal mediastinal or hilar masses or lymphadenopathy seen. No gross aortic or pulmonary artery finding suspected. Assessment is limited in the absence of IV contrast. No cardiomegaly or pericardi al effusion. No chest wall mass or abnormal axillary lymphadenopathy. Coccyx spine bony degenerative change present. No acute or pathologic process identifiable. IMPRESSION: Noncontrast CT chest imaging showing no acute finding.
[2020-01-23 16:59] LABS: Urine Bacteria <20 /HPF (NONE SEEN); Urine Culture Reflex Order NOT NEEDED; Urine RBC <5 /HPF (NONE SEEN)
[2020-01-23] MEDS ORDERED: ACETAMINOPHEN 500 MG TAB PO PRN (18:40)
[2020-01-23] MEDS ORDERED: NA CHLORIDE 0.9% 1,000 ML IV SCH (18:40)
[2020-01-23] MEDS ORDERED: ONDANSETRON 4 MG/2 ML VIAL IV PRN (18:40)
[2020-01-23] MEDS: PIPER/TAZO/NS 2.25gm 2.25 GM/50 ML BAG IVPB SCH (19:39)
[2020-01-23] MEDS: ALBUTEROL 2.5 MG/3 ML NEB SOL NEB SCH (20:00)
[2020-01-23 20:10] LABS: Protime INR 1.21
[2020-01-23] MEDS: HYDROMORPHONE HCL 1 MG/ML INJ IV PRN (20:45)
[2020-01-23 21:17] VITALS: BMI 44.1
[2020-01-23] MEDS: NA CHLORIDE 0.9% 1,000 ML IV SCH (21:57)
[2020-01-23] MEDS ORDERED: D50W 25 GM/50 ML SYRINGE/VIAL IV PRN (21:58)
[2020-01-23] MEDS ORDERED: GLUCAGON 1 MG/VIAL IM PRN (21:58)
[2020-01-24] MEDS: HYDROMORPHONE HCL 1 MG/ML INJ IV PRN ×6 (00:16→20:25)
[2020-01-24] MEDS: PIPER/TAZO/NS 2.25gm 2.25 GM/50 ML BAG IVPB SCH ×2 (00:53→08:05)
[2020-01-24] MEDS: ALBUTEROL 2.5 MG/3 ML NEB SOL NEB SCH ×2 (01:08→08:00)
[2020-01-24] MEDS: NA CHLORIDE 0.9% 1,000 ML IV SCH ×2 (04:19→17:35)
[2020-01-24 04:44] LABS: Basophils % 0.3 % (0-1.3); Hematocrit 36.5 % (39.6-49.0); Lymphocytes % 6.6 % (15.3-44.8); MPV 10.2 fL (7.6-11.3); RBC Red Blood Cell Count 4.05 M/uL (4.33-5.43)
[2020-01-24 04:57] LABS: Potassium 3.9 mmol/L (3.5-5.1)
[2020-01-24] MEDS: INSULIN -REGULAR HUMAN 50 UNIT/0.5 ML ML SQ SCH ×4 (07:30→20:28)
[2020-01-24] MEDS: LACTULOSE 20 GM/30 ML UCUP PO SCH ×2 (08:06→09:00)
[2020-01-24] MEDS ORDERED: INSULIN ASPART 25 UNIT SQ SCH (09:00)
[2020-01-24] MEDS: FENOFIBRATE 145 MG PO SCH (09:00)
--- NOTE | 2020-01-24 09:40 | RAD REPORT ---
EXAM DESCRIPTION: USExtrem Venous W Compress Bil01/24/2020 3:32 am CLINICAL HISTORY: Leg pain COMPARISON: none FINDINGS: The common femoral, superficial femoral, popliteal and posterior tibial veins bilaterally are compressible and demonstrate augmentation. Doppler demonstrates good flow. IMPRESSION: No evidence of deep venous thrombosis involving either lower extremity.
--- NOTE | 2020-01-24 11:23 | P.CNS ---
Date of Consult: 01/24/20 Reason for Consult: Weakness acute on chronic renal failure osorio virus infection Chief Complaint: Weakness History of Present Illness: Patient is 84 years of age EMS was called of for possible seizures complaining of feeling diaphoretic week increasing urinary frequency tachycardic planing of some fever was admitted from the emergency room evidence of ARDS. Patient's white count was elevated is now improved cultures are so far negative Allergies Tape Allergy (Unknown, Uncoded 01/23/20 18:46) Unknown Home Medications: Atorvastatin Calcium [Lipitor] 40 mg PO BEDTIME 01/22/16 Fenofibrate [Tricor] 145 mg PO DAILY 01/22/16 Fexofenadine/Pseudoephedrine [Nataly-D 24 Hour Tablet] 1 each PO DAILY PRN 01/22/16 Insulin Aspart [Novolog] 25 unit SQ TID 01/22/16 Montelukast [Singulair] 10 mg PO DAILY 01/22/16 Codeine/APAP [Tylenol W/Codeine #3 tab] 1 tab PO Q6HP PRN 04/17/16 Furosemide [Lasix] 80 mg PO DAILY 04/17/16 Insulin Glargine,Hum.rec.anlog [Basaglar Kwikpen U-100] 50 units SQ BEDTIME 01/23/20 Multivit-Min/FA/Lycopen/Lutein [Senior Tabs] 1 tab PO DAILY 01/23/20 - Past Medical/Surgical History Diabetic: Yes -: IDDM -: COPD -: hyperlipidemia -: HTN -: prostate CA -: arthritis -: pneumonia -: Prostate removal -: ileostomy -: trachea resection -: tonsillectomy - Family History Father Medical History: Heart disease, Cancer Mother Medical History: Heart disease - Social History Alcohol use: No CD- Drugs: No Caffeine use: Yes Place of Residence: Home Review of Systems Deferred Physical Examination Temp Pulse Resp BP Pulse Ox 96.8 F 100 H 19 173/70 H 100 01/24/20 08:00 01/24/20 08:00 01/24/20 08:10 01/24/20 08:00 01/24/20 08:10 General: Other (Deferred) Laboratory Data (last 24 hrs) 01/24/20 04:18: Sodium 139, Potassium 3.9, BUN 59 H, Creatinine 2.64 H, Glucose 193 H 05/17/20 04:18: WBC 14.5 H D, Hgb 11.9 L, Hct 36.5 L, Plt Count 159 01/23/20 19:47: APTT Cancelled 01/23/20 19:47: PT 14.2 H, INR 1.21, APTT 31.7 01/23/20 12:45: WBC 22.9 H*, Hgb 12.4 L, Hct 37.0 L, Plt Count 194 01/23/20 12:45: Sodium 137, Potassium 4.5, BUN 57 H, Creatinine 2.74 H, Glucose 178 H - Problems (1) Infection due to 2019 novel coronavirus Current Visit: Yes Status: Acute Plan: Patient is 84 years of age admitted with weakness acute on chronic renal failure saturation satisfactory no evidence of acute lung injury from the infection has some fever weakness renal function is improving continue with IV fluids change to p.o. levofloxacin blood pressure is mildly elevated sat is 97% on room air ovoid nebulizers
--- NOTE | 2020-01-24 14:30 | P.HP ---
Certification for Inpatient Patient admitted to: Inpatient Practitioner: I am a practitioner with admitting privileges, knowledge of patient current condition, hospital course, and medical plan of care. Services: Services provided to patient in accordance with Admission requirements found in Title 42 Section 412.3 of the Code of Federal Regulations Patient History Date of Service: 01/24/20 Reason for admission: FEVER AND WEAKNESS History of Present Illness: MR. EMERY IS A DIABETIC, COPD PATIENT WITH METASTATIC PROSTATE CANCER TO SPINE. HE COMES WITH WEAKNESS, HE COULD NOT WALK ANY LONGER. HE HAS HAD FEVER BUT NO COUGH. HIS WHITE COUNT WAS 22K ON ADMISSION AND NOW DOWN TO 14K IN 12 HOUS OF ZOSYN. HIS COVID TEST IS POSITIVE BUT HAS NO RESPIRATORY SYMPTOMS. Allergies Tape Allergy (Unknown, Uncoded 01/23/20 18:46) Unknown Home Medications: Atorvastatin Calcium [Lipitor] 40 mg PO BEDTIME 01/22/16 Fenofibrate [Tricor] 145 mg PO DAILY 01/22/16 Fexofenadine/Pseudoephedrine [Nataly-D 24 Hour Tablet] 1 each PO DAILY PRN 01/22/16 Insulin Aspart [Novolog] 25 unit SQ TID 01/22/16 Montelukast [Singulair] 10 mg PO DAILY 01/22/16 Codeine/APAP [Tylenol W/Codeine #3 tab] 1 tab PO Q6HP PRN 04/17/16 Furosemide [Lasix] 80 mg PO DAILY 04/17/16 Insulin Glargine,Hum.rec.anlog [Basaglar Kwikpen U-100] 50 units SQ BEDTIME 01/23/20 Multivit-Min/FA/Lycopen/Lutein [Senior Tabs] 1 tab PO DAILY 01/23/20 - Past Medical/Surgical History Has patient received pneumonia vaccine in the past: Yes Diabetic: Yes -: IDDM -: COPD -: hyperlipidemia -: HTN -: prostate CA -: arthritis -: pneumonia -: Prostate removal -: ileostomy -: trachea resection -: tonsillectomy - Family History Father -: Heart disease, Cancer Mother -: Heart disease - Social History Smoking Status: Former smoker Alcohol use: No CD- Drugs: No Caffeine use: Yes Place of Residence: Home Review of Systems 10-point ROS is otherwise unremarkable General: Weakness, Malaise Physical Examination - Vital Signs Temperature: 97.1 F Blood Pressure: 140/60 Pulse: 98 Respirations: 20 Pulse Ox (%): 99 - Physical Exam General: Mild distress, Obese HEENT: Atraumatic, PERRLA, Mucous membr. moist/pink, EOMI, Sclerae nonicteric Neck: Supple, 2+ carotid pulse no bruit, No LAD, Without JVD or thyroid abnormality Respiratory: Clear to auscultation bilaterally, Normal air movement Cardiovascular: Regular rate/rhythm, Normal S1 S2 Gastrointestinal: Normal bowel sounds, No tenderness Musculoskeletal: No tenderness Integumentary: No rashes Neurological: Normal speech, Abnormal gait (NOT ABLE TO WALK. GEN WEAKNESS.) Lymphatics: No axilla or inguinal lymphadenopathy - Studies Laboratory Data (last 24 hrs) 01/24/20 04:18: Sodium 139, Potassium 3.9, BUN 59 H, Creatinine 2.64 H, Glucose 193 H 01/24/20 04:18: WBC 14.5 H D, Hgb 11.9 L, Hct 36.5 L, Plt Count 159 01/23/20 19:47: APTT Cancelled 01/23/20 19:47: PT 14.2 H, INR 1.21, APTT 31.7 Microbiology Data (last 24 hrs): 01/23/20 15:00 Nasopharnyx Coronavirus COVID-19 PCR - Final 01/23/20 12:52 Throat Group A Streptococcus Rapid Screen - Final 01/23/20 12:52 Nasopharnyx Influenza Type A Antigen Screen - Final 01/23/20 12:52 Nasopharnyx Influenza Type B Antigen Screen - Final Assessment and Plan - Problems (Diagnosis) (1) Leukocytosis Current Visit: Yes Status: Acute Plan: THIS MAY NOT BE FROM COVID 19 MANOJ WILL WORK. STOP ZOSYN. Qualifiers: Leukocytosis type: bandemia Qualified Code(s): D72.825 - Bandemia (2) Metastatic malignant neoplasm to prostate Current Visit: Yes Status: Chronic Plan: GETS LUPRON FROM LOC[facility]. (3) Diabetes Current Visit: Yes Status: Chronic Plan: DIET IS NOT GOOD. WE HAD A TALK A YEAR AGO. HEDOES NOT REALLY CARE. HE DOES NOT WANT TO WATCH DIET HE IS 84 WITH ADVANCED CANCER. Qualifiers: Diabetes mellitus type: type 2 (4) COPD (chronic obstructive pulmonary disease) Current Visit: Yes Status: Chronic Plan: NOT ACUTE FOR NOW. (5) Trachea, stenosis Current Visit: Yes Status: Chronic Plan: SP MAJOR SURGERY IN [place]. HE CAN NEVER BE INTUBATED PER . (6) Infection due to 2019 novel coronavirus Current Visit: Yes Status: Acute Plan: HE HAS NO RESPIRATORY SYMPTOMS. HE COULD GO HOME IF HE CAN WALK . I NEED FOR HOSPITAL ADMINISTRATION TO BE ABLE TO GET HIM HELP TO WALK. I WAS TOLD BY DR. BIHSOP THAT THERAPIST DON'T SEE COVID PATIENTS. HIS SOURCE OF INFECTION MAY BE THE HOUSE KEEPER. I HAVE TALKED TO AND HOUSE KEEPER BOTH TO BE TESTED. THEY BOTH KNOW TO QUARANTINE FOR 2 WEEKS. I ALSO INFORMED BHANU FROM HEALTH DEPARTMENT. SHE WILL HAVE SOMEONE TALK TO THEM. - Advance Directives Does patient have a Living Will: No Does patient have a Durable POA for Healthcare: No
[2020-01-24] MEDS: ENOXAPARIN 30 MG/0.3 ML SQ SCH (16:11)
[2020-01-24] MEDS: HOME MED 1 EA UNK (Atorvastatin Calcium [Lipitor] 40 MG) PO SCH (21:00)
[2020-01-24] MEDS ORDERED: INSULIN GLARGINE HUM REC ANLOG 50 UNIT SQ SCH (21:00)
[2020-01-24] MEDS ORDERED: ATORVASTATIN 40 MG TAB PO SCH (21:00)
[2020-01-25] MEDS: HYDROMORPHONE HCL 1 MG/ML INJ IV PRN ×3 (00:05→16:41)
[2020-01-25] MEDS: NA CHLORIDE 0.9% 1,000 ML IV SCH ×3 (04:01→16:40)
[2020-01-25 04:22] LABS: Absolute Lymphocytes (CBC) 1.3 K/uL (0.7-4.9); Basophils % 0.5 % (0-1.3); Hematocrit 32.7 % (39.6-49.0); Lymphocytes % 13.2 % (15.3-44.8); MPV 10.2 fL (7.6-11.3); RBC Red Blood Cell Count 3.65 M/uL (4.33-5.43)
[2020-01-25 04:29] LABS: Potassium 4.1 mmol/L (3.5-5.1)
[2020-01-25] MEDS: LACTULOSE 20 GM/30 ML UCUP PO SCH (08:31)
[2020-01-25] MEDS: levoFLOXacin 250 MG TAB PO SCH (08:31)
[2020-01-25] MEDS: INSULIN -REGULAR HUMAN 50 UNIT/0.5 ML ML SQ SCH ×4 (08:32→20:17)
[2020-01-25] MEDS: FENOFIBRATE 145 MG PO SCH (09:00)
[2020-01-25] MEDS: ENOXAPARIN 30 MG/0.3 ML SQ SCH (17:00)
[2020-01-25] MEDS: HOME MED 1 EA UNK (Atorvastatin Calcium [Lipitor] 40 MG) PO SCH (21:00)
[2020-01-25] MEDS: CODEINE 30MG/APAP 300MG TAB PO PRN (22:05)
--- NOTE | 2020-01-25 22:32 | PN ---
Subjective: Mr. Waldron is an 84-year-old gentleman, who is actually feeling a lot better. Denies ch est pain, nausea, vomiting. His back pain is relieved now. He has no shortness of breath or coughin g. Objective: Vital Signs: Blood pressure is 144/68, pulse is 107, temperature 99.1. HEENT: No JVD. No carotid bruits. Chest: Clear. Heart: Regular. Abdomen: He is morbidly obese. Laboratory Data: White count of 10,000, hemoglobin 11, hematocrit 32. BUN 73, creatinine 3.85. Pos tvoid residual 500 mL of urine. Assessment And Plan: 1.Postobstructive uropathy with acute on chronic renal failure. He is a patient with prostate cance r. He seems to have retention of urine. After putting in a Santana catheter, I am hoping his creatini ne will start lowering itself with gentle IV hydration. 2.Fever and coronavirus disease 2019 positive PCR test. He has no symptoms of COVID-19. He will be able to go home as long as he is able to ambulate, but he is morbidly obese, generally weak, and has not been able to walk at the present time. 3.Leukocytosis, improved. Unclear source of infection. This could be just a viral infection. We d o not see any source of bacterial infection so far. Cultures have been negative. UA has been negati ve. CT chest, abdomen, and pelvis showed no signs of acute infection. Prognosis is overall guarded. RVD/MODL Voice ID: [id number] Report ID: [id number]
[2020-01-26] MEDS: HYDROMORPHONE HCL 1 MG/ML INJ IV PRN ×4 (00:27→23:17)
--- NOTE | 2020-01-26 02:39 | CON ---
Date of Consultation: 01/25/2020 Chief Complaint: Acute on chronic kidney injury. History Of Present Illness: Nephrology consultation was requested for acute kidney injury. Patient has nonoliguric urine output. Patient is 84-year-old and was brought by EMS for possible seizure, was complaining of feeling diaphoretic, weak, complaining of increased urinary frequency, was found to have tachycardia with low-grade fever. White count was elevated. Patient is admitted to the hospital for further workup and management. Patient has multiple medical problems including IDDM, COPD, hyperlipidemia, prostate cancer, history of pneumonia, trachea resection and tonsillectomy. COVID test was positive, but patient did not have respiratory symptoms. Review of Systems: Constitutional: Denies syncope. Respiratory: Denies shortness of breath. Cardiovascular: Denies chest pain. GI: Denies nausea, vomiting. : Denies dysuria, hematuria. All other systems reviewed and all are negative. Past Medical History: Insulin-dependent diabetes mellitus, COPD, hyperlipidemia, hypertension, prostate cancer, arthritis, prostate surgery, pneumonia, ileostomy, trachea resection, tonsillectomy. Family History: Heart disease, cancer. Mother, heart disease. Social History: Former smoker. Denies alcohol. Physical Examination: Deferred to hospitalist. Patient has COVID infection. Laboratory Data: Sodium 139, potassium 3.9, BUN 59, creatinine 2.64, glucose 193. WBC 14.5, hemoglobin 11.9, hematocrit 36.5, platelet count 159,000. Impression And Plan: 1. Leukocytosis, likely due to coronavirus disease infection. Patient will continue Levaquin. Urine culture and blood culture are pending. 2. Malignant neoplasm of prostate. Patient is on Lupron from local [facility]. 3. Diabetes mellitus. Continue insulin. 4. Acute kidney injury. Continue IV fluids. Monitor fluid balance. Likely patient has nonoliguric urine output and this may go along with ATN nonoliguric, prerenal azotemia. CT of abdomen and pelvis did not show hydronephrosis. Avoid nephrotoxic medication. Monitor daily electrolytes. EB/MODL Voice ID: [id number] Report ID: [id number]
[2020-01-26] MEDS: NA CHLORIDE 0.9% 1,000 ML IV SCH ×3 (03:00→23:17)
[2020-01-26 04:21] LABS: Absolute Lymphocytes (CBC) 1.3 K/uL (0.7-4.9); Basophils % 0.2 % (0-1.3); Hematocrit 32.8 % (39.6-49.0); Lymphocytes % 13.3 % (15.3-44.8); MPV 10.1 fL (7.6-11.3); RBC Red Blood Cell Count 3.65 M/uL (4.33-5.43)
[2020-01-26 04:37] LABS: Potassium 3.9 mmol/L (3.5-5.1)
[2020-01-26] MEDS: CODEINE 30MG/APAP 300MG TAB PO PRN ×2 (04:48→16:00)
[2020-01-26] MEDS: levoFLOXacin 250 MG TAB PO SCH (06:56)
[2020-01-26] MEDS: LACTULOSE 20 GM/30 ML UCUP PO SCH (06:56)
--- NOTE | 2020-01-26 07:05 | EKG ---
Test Date: 2020-01-23 Test Time: 12:28:11 Cleaning Custodian: ELIN MEASUREMENT RESULTS: Intervals: Rate: 126 CT: 130 QRSD: 144 QT: 336 QTc: 486 Gackle: P: 58 CT: 130 QRS: -49 T: 79 INTERPRETIVE STATEMENTS: Sinus tachycardia Left axis deviation Left bundle branch block Abnormal ECG Compared to ECG 01/22/2016 19:55:48 No significant changes Electronically Signed On 01-26-20 07:00:51 CDT by Rylan Foster
[2020-01-26] MEDS: INSULIN -REGULAR HUMAN 50 UNIT/0.5 ML ML SQ SCH ×4 (07:31→19:42)
[2020-01-26] MEDS: FENOFIBRATE 145 MG PO SCH (09:00)
--- NOTE | 2020-01-26 10:04 | P.PN ---
Subjective Date of Service: 01/26/20 Chief Complaint: FEVER AND WEAKNESS Subjective An 84 y/o man with Pmhx of CKD baseline Cr ~2.2-2.4, prostate CA on lupron , DM and HTN admitted for weakness and chills COVID 19+ ve pt cr up to 4.3 today Cr up to 4.3, UP ~2000 ml last 24hrs will reduce IVF rate will dc lipitor and fenofibrate will order serology W/U if no improvement in RFT over the next 24-48hrs then pt might need to initiate renal replacement therapy hysical exam general: AAOX3, NAD , obese Neck; Supple, No elevated JVD hear: RRR, normal S1,2 no murmur or rub Chest: decreased air entry , no rlaes or wheezes Abdomen: Soft , Nt Extremities chronic skin changes and swelling, no edema ELLIOTT on CKD possibly due to COVID nephropathy CT No hydro , non oliguric will reduce IVF rate will dc lipitor and fenofibrate will order serology W/U if no improvement in RFT over the next 24-48hrs then pt might need to initiate renal replacement therapy renal dose meds DM as per primary team HTN controlled leuckocytosis resolved HX of prostate CA asymptomatic good UO cont sandoval total time spent 35 min Physical Examination - Vital Signs Temperature: 97 F Blood Pressure: 142/86 Pulse: 100 Respirations: 18 Pulse Ox (%): 100 - Studies Microbiology Data (last 24 hrs): 01/23/20 12:52 Throat Culture & Sensitivity - Final NORMAL UPPER RESPIRATORY PEARL GROWN. 01/23/20 13:50 Clean Catch Urine [place] Count - Final 01/23/20 13:50 Clean Catch Urine - Final No growth. 01/23/20 13:10 Blood - Blood Aerobic Blood Culture - Final 01/23/20 13:10 Blood - Blood Blood Culture Gram Stain - Final 01/23/20 13:10 Blood - Blood Anaerobic Blood Culture - Final 01/23/20 13:10 Blood - Blood Gram Stain - Final
[2020-01-26 12:54] LABS: Urine Protein/Creatinine Ratio 1.05 ratio (<0.15)
[2020-01-26] MEDS: ENOXAPARIN 30 MG/0.3 ML SQ SCH (16:35)
--- NOTE | 2020-01-26 21:51 | PN ---
Subjective: Mr. Waldron is doing really good. He has been able to sit up in the chair now. Starting to ambulate in the room without help or physical therapist. Denies any chest pain, nausea, vomiting . He has no cough and shortness of breath. Objective: This was a virtual visit telehealth. 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 Has no a ccessory muscles of respiration at work. No signs of JVD, is comfortable. No distress, sitting in t he chair. Laboratory Data: Creatinine jumped up to 4.35 from 3.85 until this is normal. Assessment And Plan: 1.Acute on chronic renal failure. Patient is seen by Dr. Frazier. May need dialysis. This can b e because of COVID infection. It can affect kidneys at that times. 2.Leukocytosis. White count elevation has normalized now and having no signs of any infection anywh ere else. I am going to discontinue Levaquin to cut down the load of any chemicals on the kidneys an d Dr. Frazier has discontinued Lipitor and Tricor at the same time. Continue IV fluids at 76 mL/ho ur. Prognosis is guarded. He can possibly go home if stabilized in the kidneys or he may end up nee ding dialysis, but like it will delay the discharge because he is already positive for COVID. RVD/MODL Voice ID: [id number] Report ID: [id number]
[2020-01-27] MEDS: CODEINE 30MG/APAP 300MG TAB PO PRN ×2 (01:45→14:14)
[2020-01-27] MEDS: HYDROMORPHONE HCL 1 MG/ML INJ IV PRN ×3 (03:02→20:38)
[2020-01-27 03:54] LABS: Absolute Lymphocytes (CBC) 1.2 K/uL (0.7-4.9); Basophils % 0.4 % (0-1.3); Hematocrit 31.1 % (39.6-49.0); Lymphocytes % 14.3 % (15.3-44.8); MPV 9.8 fL (7.6-11.3); RBC Red Blood Cell Count 3.45 M/uL (4.33-5.43)
[2020-01-27 04:42] LABS: Phosphorus 6.4 mg/dL (2.5-4.9); Potassium 4.1 mmol/L (3.5-5.1); Thyroid Stimulating Hormone 1.19 uIU/mL (0.360-3.740); Uric Acid 11.6 mg/dL (3.5-7.2)
[2020-01-27] MEDS ORDERED: NA CHLORIDE 0.9% 1,000 ML IV SCH (05:04)
[2020-01-27 06:02] LABS: Urine Appearance CLOUDY; Urine Bilirubin NEGATIVE (NEG); Urine Blood 3+ (NEG); Urine Color YELLOW; Urine Glucose NEGATIVE (NEG); Urine Protein 1+ (NEG); Urine Specific Gravity 1.015 (1.005-1.030); Urine Urobilinogen 0.2 mg/dL (0.2-1.0)
[2020-01-27 06:05] LABS: Urine Microscopic Reflex ORDER UMIC
[2020-01-27 08:00] LABS: Urine Bacteria 20-50 /HPF (NONE SEEN); Urine Culture Reflex Order REFLEXED
[2020-01-27] MEDS: LACTULOSE 20 GM/30 ML UCUP PO SCH ×2 (08:51→09:00)
[2020-01-27] MEDS: INSULIN -REGULAR HUMAN 50 UNIT/0.5 ML ML SQ SCH ×4 (09:05→20:39)
--- NOTE | 2020-01-27 10:46 | RAD REPORT ---
EXAM DESCRIPTION: RAD - Chest Single View - 01/27/2020 10:27 am CLINICAL HISTORY: COPD Chest pain. COMPARISON: Chest Single View dated 01/23/2020; CHEST SINGLE VIEW dated 09/17/2011; CHEST SINGLE VIEW d ated 02/01/2009; CHEST SINGLE VIEW dated 01/31/2009 FINDINGS: Portable technique limits examination quality. The lungs are grossly clear. The heart is normal in size. No displaced fractures. IMPRESSION: No acute intrathoracic process suspected.
[2020-01-27] MEDS: NACHLORIDE 0.45% 1,000 ML with NA BICARB 8.4% 75 MEQ IV SCH ×4 (11:03→22:15)
[2020-01-27 14:10] LABS: Rheumatoid Factor NEG (NEG)
--- NOTE | 2020-01-27 16:26 | PN ---
Date of Progress Note: 01/27/2020 This visit has been done by the video as patient COVID positive. Physical exam done under my instruc tion to the nurse and supervision. Patient was admitted with acute kidney injury secondary to rhabdo myolysis. Patient had background of chronic kidney disease, status post dialysis, was weaned seconda ry to TTP, HUS. The patient came with acute kidney injury, positive COVID, COVID nephropathy, and rh abdo. Physical Examination: Vital Signs: When I saw the patient, blood pressure 140/61, pulse of 96, afebrile. Patient had good urine output of 2200. Chest: Faint rales on the left base. Heart: S1, S2. Systolic murmur. Abdomen: Soft, nontender. Extremities: Venous stasis change. Trace edema. Neuro: Alert, oriented x3. No tremor. Laboratory Data: WBC 8.5, H and H 10.3/31.1, platelets 176. Sodium of 139, potassium 4.1, bicarb 19 , BUN 78, creatinine 4, GFR of 14, uric acid 11.6, calcium 7.4, phosphorus 6.4. CK 7600. TSH 1.9. The patient's urinalysis, specific gravity of 1.015, pH of 5, PC ratio of 1. Current Medications: The patient on include: 1.Tylenol. 2.Lovenox. 3.Zofran. 4.Insulin. Assessment And Plan: 1.Acute kidney injury secondary to prerenal/rhabdomyolysis, nonoliguric. No hyperkalemia. No acido sis. I do not see the need to initiate any renal replacement therapy. I am going to start the patie nt on sodium bicarb. Our goal to achieve urine pH above 6.5. 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 I am going to send for full serology and we will follow up. 3.Hypertension, controlled optimal. Continue current medication. 4.Rhabdomyolysis, possible secondary to coronavirus disease myopathy/autoimmune disease. I am going to send for serology. Given the acute kidney injury, patient is going to be started on sodium bicar b for targeting of alkalizing the urine. 5.Hyperuricemia secondary to poor perfusion, acute kidney injury. I am going to go ahead and start aggressive hydration and we will follow up the patient. I do not see the need to initiate allopurino l for the time being. 6.Hyperphosphatemia secondary to renal failure with the presence of hypocalcemia. I am going to sta rt the patient on Tums. 7.Acidosis secondary to renal failure. Given the rhabdomyolysis, I am going to start the patient on sodium bicarb intravenous and on calcium carbonate. BRANNON/JONATHAN Voice ID: [id number] Report ID: [id number]
[2020-01-27] MEDS: CALCIUM CARBONATE CHEW 500MG TAB PO SCH (16:51)
[2020-01-27] MEDS: ENOXAPARIN 30 MG/0.3 ML SQ SCH (16:51)
--- NOTE | 2020-01-27 22:31 | PN ---
Subjective: Mr. Waldron is doing lot better. He is sitting up, trying to walk, ambulate in the room. His tele visit examination shows he is very comfortable, he wants to go home. On investigation, hi s BUN and creatinine is down to 78/4.03. 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 2.Prostate cancer with metastasis to bone, getting chemotherapy or Lupron injections. 3.Coronavirus disease 2019 infection with almost no symptoms. His renal failure could be because of coronavirus disease 2019 infection. 4.He has some rhabdomyolysis on the examination. His CPK more than 7000. 5.Prognosis is overall guarded. RVD/MODL Voice ID: [id number] Report ID: [id number]
[2020-01-28] MEDS: CODEINE 30MG/APAP 300MG TAB PO PRN ×2 (00:37→09:46)
[2020-01-28 04:03] LABS: Potassium 4.2 mmol/L (3.5-5.1); Uric Acid 11.7 mg/dL (3.5-7.2)
[2020-01-28 04:05] LABS: Absolute Lymphocytes (CBC) 1.1 K/uL (0.7-4.9); Basophils % 0.4 % (0-1.3); Hematocrit 31.7 % (39.6-49.0); Lymphocytes % 14.7 % (15.3-44.8); MPV 9.8 fL (7.6-11.3); RBC Red Blood Cell Count 3.49 M/uL (4.33-5.43)
[2020-01-28] MEDS: HYDROMORPHONE HCL 1 MG/ML INJ IV PRN (05:55)
[2020-01-28] MEDS: NACHLORIDE 0.45% 1,000 ML with NA BICARB 8.4% 75 MEQ IV SCH ×2 (06:52)
[2020-01-28] MEDS: CALCIUM CARBONATE CHEW 500MG TAB PO SCH ×2 (06:52→10:31)
[2020-01-28] MEDS: LACTULOSE 20 GM/30 ML UCUP PO SCH (06:53)
[2020-01-28 07:13] VITALS: O2SAT 98
[2020-01-28] MEDS: INSULIN -REGULAR HUMAN 50 UNIT/0.5 ML ML SQ SCH ×2 (07:35→11:05)
[2020-01-28 11:03] VITALS: BP 146/71; TEMP 97.2
[2020-01-28 11:15] LABS: Urine Appearance CLOUDY; Urine Bilirubin NEGATIVE (NEG); Urine Blood 2+ (NEG); Urine Color YELLOW; Urine Glucose TRACE (NEG); Urine Protein 1+ (NEG)
[2020-01-28 11:28] LABS: Urine Microscopic Reflex ORDER UMIC
[2020-01-28 11:41] LABS: Urine Bacteria 20-50 /HPF (NONE SEEN); Urine Culture Reflex Order REFLEXED
--- NOTE | 2020-01-28 18:38 | PN ---
Date of Progress Note: 01/28/2020 Subjective: Patient was admitted with acute kidney injury secondary to rhabdomyolysis. Patient was started on bicarb drip yesterday. Kidney function continued to improve. Patient positive for COVID pneumonia. Physical Examination: Vital Signs: Blood pressure 146/71, pulse of 100, afebrile. Patient had good urine output of 2600. Chest: Clear to auscultation. Heart: S1, S2. Regular. Abdomen: Soft, nontender. Extremities: Trace edema. Neurologic: Alert. No focality. All this physical exam done by the video by the nurse under my supervision as the patient on isolatio n for COVID pneumonia. Laboratory Data: WBC 7.6, H and H 10.5/31.7, platelet 177. Sodium 139, potassium 4.2, bicarb 22, BU N 75, creatinine 3.6, uric acid 11.7, calcium 7. CK down to 3300. Current Medications: The patient on include calcium carbonate, hydromorphone, lactulose, IV fluid wi th sodium bicarb. Assessment And Plan: 1.Acute kidney injury on chronic kidney disease, on the recovery, normal volume. I am going to cont inue hydration. Patient is going to be cleared from the renal standpoint for discharge planning. 2.Rhabdomyolysis. Autoimmune disease workup still pending. We will follow up the patient. 3.Coronavirus disease pneumonia. Continue follow up with primary. 4.Coronavirus disease nephropathy on the on chronic kidney disease with acute kidney injury, on robin very. We will follow up. 5.Hyperuricemia. I am not going to resume any allopurinol for the time being. We will follow up as outpatient. BRANNON/JONATHAN Voice ID: [id number] Report ID: [id number]
[2020-01-29 19:24] LABS: HBsAG Nonreactive (Nonreactive)
[2020-01-30 14:40] LABS: HIV AG/AB 4TH GEN Non-reactive (Non-reactive)
--- NOTE | 2020-01-31 16:23 | P.DS ---
Admission Date: 01/24/20 Discharge Date: 01/31/20 Disposition: ROUTINE DISCHARGE Discharge Condition: SERIOUS Reason for Admission: FEVER AND WEAKNESS - Problems (1) Leukocytosis Status: Acute Qualifiers: Leukocytosis type: bandemia Qualified Code(s): D72.825 - Bandemia (2) Metastatic malignant neoplasm to prostate Status: Chronic (3) Diabetes Status: Chronic Qualifiers: Diabetes mellitus type: type 2 (4) COPD (chronic obstructive pulmonary disease) Status: Chronic (5) Trachea, stenosis Status: Chronic (6) Infection due to 2019 novel coronavirus Status: Acute Brief History of Present Illness: MR. EMERY IS A DIABETIC, COPD PATIENT WITH METASTATIC PROSTATE CANCER TO SPINE. HE COMES WITH WEAKNESS, HE COULD NOT WALK ANY LONGER. HE HAS HAD FEVER BUT NO COUGH. HIS WHITE COUNT WAS 22K ON ADMISSION AND NOW DOWN TO 14K IN 12 HOUS OF ZOSYN. HIS COVID TEST IS POSITIVE BUT HAS NO RESPIRATORY SYMPTOMS. Hospital Course: MR. EMERY COMES IN WITH WEAKNESS AND COULD NOT GET OUT OF BED. WE FOUND HE WAS POSITIVE FOR COVID BUT HAD NO SYMPTOMS OF IT HE GOT BETTER SLOWLY. HIS RENAL FAILURE IMPROVED AFTER CRU[facility] HE HAD PVR HE AT [facility] RENAL FAILURE UP TO CREAT OF 3. SP HUS FROM PROSTATE CANCER. HE STILL GET LUPRON FOR PROSTATE CANCER. AT TIME OF DC HE IS STABLE, ABLE TO ABMULATE AND HAS NO SYMPTOMS. Vital Signs/Physical Exam: Temp Pulse Resp BP Pulse Ox 97.2 F 100 H 18 146/71 H 99 01/28/20 11:01 01/28/20 11:01 01/28/20 11:01 01/28/20 11:01 01/28/20 11:01 General: Alert, In no apparent distress, Obese HEENT: Atraumatic, PERRLA, EOMI Neck: Supple, JVD not distended Respiratory: Clear to auscultation bilaterally, Normal air movement Cardiovascular: Regular rate/rhythm, Normal S1 S2 Gastrointestinal: Normal bowel sounds, No tenderness Musculoskeletal: No tenderness Integumentary: No rashes Neurological: Normal speech, Normal tone, Normal affect Lymphatics: No axilla or inguinal lymphadenopathy Laboratory Data at Discharge: WBC 7.6 K/uL (4.3-10.9) 01/28/20 03:14 Hgb 10.5 g/dL (13.6-17.9) L 01/28/20 03:14 Hct 31.7 % (39.6-49.0) L 01/28/20 03:14 Plt Count 177 K/uL (152-406) 01/28/20 03:14 PT 14.2 SECONDS (9.5-12.5) H 01/23/20 19:47 INR 1.21 01/23/20 19:47 APTT 31.7 SECONDS (24.3-36.9) 01/23/20 19:47 APTT Cancelled 01/23/20 19:47 Sodium 139 mmol/L (136-145) 01/28/20 03:14 Potassium 4.2 mmol/L (3.5-5.1) 01/28/20 03:14 BUN 75 mg/dL (7-18) H 01/28/20 03:14 Creatinine 3.63 mg/dL (0.55-1.3) H 01/28/20 03:14 Glucose 173 mg/dL (74-106) H 01/28/20 03:14 Uric Acid 11.7 mg/dL (3.5-7.2) H 01/28/20 03:14 Phosphorus 6.4 mg/dL (2.5-4.9) H 01/27/20 03:21 Home Medications: Atorvastatin Calcium [Lipitor] 40 mg PO BEDTIME 01/22/16 Fenofibrate [Tricor*] 145 mg PO DAILY 01/22/16 Fexofenadine/Pseudoephedrine [Nataly-D 24 Hour Tablet] 1 each PO DAILY PRN 01/22/16 Insulin Aspart [Novolog] 25 unit SQ TID 01/22/16 Montelukast [Singulair*] 10 mg PO DAILY 01/22/16 Codeine/APAP [Tylenol #3*] 1 tab PO Q6HP PRN 04/17/16 Furosemide [Lasix*] 80 mg PO DAILY 04/17/16 Insulin Glargine,Hum.rec.anlog [Basaglar Kwikpen U-100] 50 units SQ BEDTIME 01/23/20 Multivit-Min/FA/Lycopen/Lutein [Senior Tabs] 1 tab PO DAILY 01/23/20 Polyethylene Glycol 3350 [Miralax] 17 gm PO DAILY #30 powd.pack 01/28/20 Tamsulosin HCl 0.4 mg PO DAILY #90 capsule 01/28/20 New Medications: Polyethylene Glycol 3350 [Miralax] 17 gm PO DAILY #30 powd.pack Tamsulosin HCl 0.4 mg PO DAILY #90 capsule Patient Discharge Instructions: PUT MASK ON ALL THE TIME. N 95 IF YOU HAVE IT. REDO CHECK ON COVID IN 2 WEEKS. ISOLATE YOURSELF UNTIL NEG TEST. Followup: Misty Shaw MD [ACTIVE - CAN ADMIT] - (call to schedule appointment) Izaiah Segal MD [Primary Care Provider] -
== END 2020-01-28 12:00 | disposition home or self-care (01) | DRG 177 ==
LOC: SUPCPDRO 12:22 → ER 12:22 → ERHOLD 14:56 → INTOOBSV 14:56 → 4TH 16:36 → OBSVTOIN 01-24 08:49
PROVIDERS: ADMIT Internal Medicine; ATTEND Internal Medicine
PROC: 8E0ZXY6 Isolation (ICD-10-PCS; principal; 2020-01-24)
DX: U07.1 COVID-19 (principal); J12.89 Other viral pneumonia; C79.51 Secondary malignant neoplasm of bone; Z68.41 Body mass index [BMI] 40.0-44.9, adult; N17.9 Acute kidney failure, unspecified; M62.82 Rhabdomyolysis; E87.2 Acidosis; J44.9 Chronic obstructive pulmonary disease, unspecified; C61 Malignant neoplasm of prostate; Z91.048 Other nonmedicinal substance allergy status; Z79.4 Long term (current) use of insulin; Z79.891 Long term (current) use of opiate analgesic; Z79.899 Other long term (current) drug therapy; E78.5 Hyperlipidemia, unspecified; Z87.891 Personal history of nicotine dependence; N18.9 Chronic kidney disease, unspecified; N39.8 Other specified disorders of urinary system; E66.01 Morbid (severe) obesity due to excess calories; I12.9 Hypertensive chronic kidney disease with stage 1 through stage 4 chronic kidney disease, or unspecified chronic kidney disease; E79.0 Hyperuricemia without signs of inflammatory arthritis and tophaceous disease; E83.39 Other disorders of phosphorus metabolism; E83.51 Hypocalcemia; D72.825 Bandemia; E11.22 Type 2 diabetes mellitus with diabetic chronic kidney disease
CPT/HCPCS: 36415; 71045; 71250; 74176; 80048; 81003; 81015; 82550; 82570; 82947; 83520; 83605; 84100; 84132; 84145; 84156; 84300; 84443; 84484; 84550; 85025; 85610; 85730; 86021; 86038; 86160; 86430; 86705; 86706; 86803; 87040; 87070; 87081; 87086; 87088; 87205; 87340; 87389; 87804; 93005; 93970; 94760; 96374; 99285; G0378; J0696; J1170; J1650; J7030; U0002

== ENCOUNTER 2020-04-13 23:33 | Emergency (ER) | payer OTHER ==
--- OUTSIDE RECORDS SUMMARY | 2020-04-13 23:35 | XMS REPORT | Clinical Summary ---
:1935 Author Organization [facility] Address [address] [place] [address] Care Team Providers Name Role Phone Unavailable [...] Overview: prostate Diabetes mellitus Arthritis Overview: back Encounters Date Type Specialty Care Team Description 01/23/2020 Lab Requisition Lab after 04/13/2019 Immunizations Name Dates Previously Given Next Due [...] file Plan of Treatment Not on file Procedures Procedure Name Priority Date/Time Associated Diagnosis Comme nts SARS-COV2/RT-PCR Routine 01/23/2020 3:00 PM Resu lts for this ([facility]) CDT procedure are in the results section. after 04/13/2019 Results SARS-CoV2/RT-PCR ([facility]) (01/23/2020 3:00 PM CDT) SARS-COV2/RT-PCR Detected ([facility]) Not Detected, Negative [facility] SARS-COV-2 PERFORMING LAB [facility] Specimen Other Narrative Performed At Results are for the detection of SARS-CoV-2 [facility] RNA. The SARS-CoV-2 RNA is generally detectable in nasopharyngeal swab specimens during the acute phase of infection. Positive results are indicative of active infection with SARS-CoV-2; clinical correlation with patient history and other diagnostic information is necessary to determine patient infection status. Positive results do not rule out bacterial infection or co-infection with other viruses. The agent detected may not be the definite cause of disease. The limit of detection for this assay is 250 copies/mL. This SARS CoV-2 test is a rapid, real-time RT-PCR test intended for the qualitative detection of nucleic acid from SARS-CoV-2 in a nasopharyngeal swab specimen collected from individuals suspected of COVID-19 by their healthcare provider. This test has not been Food and Drug Administration (FDA) cleared or approved and has been authorized by FDA under an Emergency Use Authorization (EUA). This EUA will be effective until the declaration that circumstances exist justifying the authorization of the emergency use of in vitro diagnostic tests for detection and/or diagnosis of COVID-19 is terminated under Section 564(b)(2) of the Act or the EUA is revoked under Section 564(g) of the Act. Fact Sheet for Healthcare Providers: https://www.[employer]/Documents/Xpert%20Xpr ess%20SARS%20CoV-2/Fact%20Sheets/302-3802%20S ARS-COV-2%20HEALTHCARE%20PROVIDERS%20FACT%20S HEET.pdf Fact Sheet for Healthcare Patients: https://www.[employer]/Documents/Xpert%20Xpr ess%20SARS%20CoV-2/Fact%20Sheets/302-3801%20S ARS-COV-2%20PATIENT%20FACT%20SHEET.pdf Performing Laboratory: [address] [place] [address] Performing Organization Address City/State/Zipcode Phone Number [facility] [address] [place] [id number] [address] after 04/13/2019 Insurance Payer Benefit Plan / Subscriber ID Type Phone Address Group [employer] - MEDICARE [employer] MEDICARE HMO xxxxxxxx [id number] [place] [address] Advance Directives For more information, please contact:[address] [phone] Code Status Date Activated Date Inactivated Comments Full Code 01/23/2016 3:59 AM 02/08/2016 11:28 PM This code status was determined by: Patient
--- OUTSIDE RECORDS SUMMARY | 2020-04-13 23:35 | XMS REPORT | Clinical Summary ---
:1935 Author Organization [facility] Address [address] [place] [address] Care Team Providers Name Role Phone Asked, Pcp Primary Care Provider Unavailable Allergies No Known Allergies Medications Medication Sig Dispensed Refills Start Date End Date Status insulin ASPART Inject 25 Units 0 Active (NovoLOG) 100 unit/mL under the skin 3 injection (three) times a day before meals. montelukast Take 10 mg by 0 Acti ve (SINGULAIR) 10 mg mouth nightly. tablet latanoprost (XALATAN) 1 drop nightly. 0 Active 0.005 % ophthalmic solution gabapentin Take 300 mg by 0 Acti ve (NEURONTIN) 300 mg mouth 2 (two) capsule times a day. insulin GLARGINE Inject 50 Units 0 Active (LANTUS) 100 unit/mL under the skin injection (vial) nightly. atorvastatin Take 40 mg by 0 Act john (LIPITOR) 40 mg mouth daily. tablet acetaminophen-codeine Take 1 tablet by 0 Active (TYLENOL WITH CODEINE mouth every 6 #3) 300-30 mg per (six) hours as tabletIndications: needed for acute pain moderate pain .acute pain. multivitamin Take 1 tablet by 0 Active (THERAGRAN) tablet mouth daily. cholecalciferol, Take 2,000 Units 0 Active vitamin D3, 50 mcg by mouth daily. (2,000 unit) capsule capsule tamsulosin (FLOMAX) Take 0.4 mg by 0 Active 0.4 mg capsule mouth daily with dinner. lisinopriL (PRINIVIL) Take 1 tablet (5 30 tablet 0 04/14/2020 05/14/2020 Active 5 mg tablet mg total) by mouth daily for 30 days. Active Problems Problem Noted Date Hypertensive urgency 04/12/2020 Encounters Date Type Specialty Care Team Description 04/12/2020 Anesthesia Event Plastic Surgery Carlene Doherty CRNA 04/12/2020 - Hospital Encounter General Internal Irina Hills Hype rtensive urgency 04/13/2020 Medicine (Primary Dx) Wanda Sepulveda MD 04/12/2020 Travel 04/11/2020 Travel 04/11/2020 Orders Only Ophthalmology Irina Hills, Michelegmatoyusuf robertson MD retinal detachm ent of left eye (Prima ry Dx) after 04/13/2019 Social History Tobacco Use Types Packs/Day Years Used Date Former Smoker Quit: 2008 Smokeless Tobacco: Never Used Alcohol Use Drinks/Week oz/Week Comments Yes occ Sex Assigned at Date Recorded Not on file Job Start Date Occupation Industry Not on file Not on file Not on file Travel History Travel Start Travel End No recent travel history available. COVID-19 Exposure Response Date Recorded In the last month, have you been in contact with Yes 04/12/2020 6:50 AM CDT someone who was confirmed or suspected to have Coronavirus / COVID-19? Last Filed Vital Signs Vital Sign Reading Time Taken Comments Blood Pressure 110/54 04/13/2020 7:36 AM CDT Pulse 80 04/13/2020 7:36 AM CDT Temperature 36.2 C (97.2 F) 04/13/2020 7:36 AM CDT Respiratory Rate 18 04/13/2020 7:36 AM CDT Oxygen Saturation 99% 04/13/2020 7:36 AM CDT Inhaled Oxygen Concentration - - Weight 133 kg (293 lb 3 oz) 04/12/2020 8:24 AM CDT Height 180.3 cm (5' 11") 04/12/2020 8:24 AM CDT Body Mass Index 40.89 04/12/2020 8:24 AM CDT Plan of Treatment Health Maintenance Due Date Last Done Comments DIABETIC RETINAL EYE EXAM 1935 DIABETIC FOOT EXAM 1945 SHINGLES VACCINES (#1) 1986 65+ PNEUMOCOCCAL VACCINE (1 of 2 - PCV13) 2001 INFLUENZA VACCINE 04/09/2020 Procedures Procedure Name Priority Date/Time Associated Comments Diagnosis POC GLUCOSE Routine 04/13/2020 7:35 Results for this AM CDT procedure are i n the results section. ESTIMATED GFR Routine 04/13/2020 6:00 Results fo r this AM CDT procedure are i n the results section. LIPID PANEL Routine 04/13/2020 6:00 Results for this AM CDT procedure are i n the results section. PHOSPHORUS LEVEL Routine 04/13/2020 6:00 Results for this AM CDT procedure are i n the results section. MAGNESIUM LEVEL Routine 04/13/2020 6:00 Results for this AM CDT procedure are i n the results section. BASIC METABOLIC PANEL Routine 04/13/2020 6:00 Re sults for this AM CDT procedure are i n the results section. CBC HEMOGRAM Routine 04/13/2020 6:00 Results for this AM CDT procedure are i n the results section. POC GLUCOSE Routine 04/12/2020 9:25 Results for this PM CDT procedure are i n the results section. POC GLUCOSE Routine 04/12/2020 6:15 Results for this PM CDT procedure are i n the results section. US RENAL DOPPLER Routine 04/12/2020 6:00 Results for this PM CDT procedure are i n the results section. US RENAL Routine 04/12/2020 5:30 Results for this PM CDT procedure are i n the results section. POC GLUCOSE Routine 04/12/2020 2:58 Results for this PM CDT procedure are i n the results section. POC GLUCOSE Routine 04/12/2020 1:22 Results for this PM CDT procedure are i n the results section. T4, FREE Routine 04/12/2020 10:50 Results for this AM CDT procedure are i n the results section. ESTIMATED GFR Routine 04/12/2020 10:50 Results fo r this AM CDT procedure are i n the results section. THYROID STIMULATING Routine 04/12/2020 10:50 Resu lts for this HORMONE AM CDT procedure are i n the results section. PHOSPHORUS LEVEL Routine 04/12/2020 10:50 Results for this AM CDT procedure are i n the results section. MAGNESIUM LEVEL Routine 04/12/2020 10:50 Results for this AM CDT procedure are i n the results section. BASIC METABOLIC PANEL Routine 04/12/2020 10:50 Re sults for this AM CDT procedure are i n the results section. HEMOGLOBIN A1C Routine 04/12/2020 10:50 Results f or this AM CDT procedure are i n the results section. HC COMPLETE BLD COUNT Routine 04/12/2020 10:47 Re sults for this W/AUTO DIFF AM CDT procedure are i n the results section. ECG 12-LEAD Routine 04/12/2020 9:56 Results for this AM CDT procedure are i n the results section. ECG 12-LEAD Routine 04/12/2020 9:53 Results for this AM CDT procedure are i n the results section. POC GLUCOSE Routine 04/12/2020 9:23 Results for this AM CDT procedure are i n the results section. after 04/13/2019 Results POC glucose (04/13/2020 7:35 AM CDT)Only the most recent of6 resultswithin the time period is included. [facility] POC glucose 177 (H) 65 - 99 mg/dL [facility] Comment: HOSPITAL Cosmetologist Name: Andrew Gar Device ID: [id number] Chartable: [facility] Notified RN Specimen Blood Performing Organization Address City/[facility]/Zipcode Phone Number [facility] DEPARTMENT OF PATHOLOGY AND [address] [place] [phone] Estimated GFR (04/13/2020 6:00 AM CDT)Only the most recent of2 resultswithin the time period is included. [facility] Estimated GFR 27 (A) mL/min/1.73 [facility] Comment: HOSPITAL Catergory Units Interpretation G1 >=90 Normal or high G2 60-89 Mildly decreased G3a 45-59 Mildly to moderately decreas ed G3b 30-44 Moderately to severely decre ased G4 15-29 Severely decreased G5 <15 Kidney failure The eGFR was calculated using the Chronic Kidney Disea se Epidemiology Collaboration (CKD-EPI) equation. Interpretation is based on recommendations of the National Kidney Foundation-Kidney Disease Outcomes Ac lity Initiative (NKF-KDOQI) published in 2014. Specimen Performing Organization Address City/State/Zipcode Phone Number [facility] DEPARTMENT OF PATHOLOGY AND [address] [place] [phone] CBC hemogram (04/13/2020 6:00 AM CDT) [facility] WBC 10.84 4.50 - 11.00 k/uL [facility] RBC 3.69 (L) 4.40 - 6.00 m/uL [facility] HGB 10.6 (L) 14.0 - 18.0 g/dL [facility] HCT 34.7 (L) 41.0 - 51.0 % [facility] MCV 94.0 82.0 - 100.0 fL [facility] MCH 28.7 27.0 - 34.0 pg [facility] MCHC 30.5 (L) 31.0 - 37.0 g/dL [facility] RDW - SD 51.8 37.0 - 55.0 fL [facility] MPV 11.8 8.8 - 13.2 fL [facility] Platelet count 202 150 - 400 k/uL [facility] Nucleated RBC 0.00 /100 WBC [facility] Specimen Blood Performing Organization Address [facility] Phone Number [facility] DEPARTMENT OF PATHOLOGY AND [address] [place] [address] [place] [phone] Phosphorus level (04/13/2020 6:00 AM CDT)Only the most recent of2 resultswithin the time period is included. Pathologist Sig nature Phosphorus 3.9 2.4 - 4.5 mg/dL [facility] Specimen Blood Performing Organization Address [facility]osc Phone Number [facility] DEPARTMENT OF PATHOLOGY AND [address] [place] [address] [phone] [address] Magnesium level (04/13/2020 6:00 AM CDT)Only the most recent of2 resultswithin the time period is included. Pathologist Sig nature Magnesium 2.0 1.6 - 2.4 mg/dL [facility] Specimen Blood Performing Organization Address [facility] Phone Number [facility] DEPARTMENT OF PATHOLOGY AND [address] [place] [address] [phone] [address] Lipid panel (04/13/2020 6:00 AM CDT) Cholesterol 126 <200 mg/dL [facility] Triglycerides 133 <150 mg/dL [facility] HDL cholesterol 40 >40 mg/dL [facility] LDL cholesterol 71Comment: Result <100 mg/dL [facility] obtained by direct [facility] LDL measurement [facility] Lipid panel [facility] interpretation Comment: [facility] Total Cholesterol (mg/dL) HOSPIT AL <200 Desirable 200-239 Borderline-high >=240 High Triglycerides (mg/dL) <150 Normal 150-199 Borderline-high 200-499 High >=500 Very high HDL Cholesterol (mg/dL) <40 Low (male) <40 Low (female) LDL Cholesterol (mg/dL) <100 Optimal 100-129 Near or above optimal 130-159 Borderline-high 160-189 High >=190 Very high Risk Catergories that modify LDL goals. Risk Catergories LDL goal (mg/d L) CHD and CHD risk equivalent <100 (10-year risk >20%) Multiple (2+) risk factors <130 (10-year risk =<20%) 0-1 risk factors <160 (<10-year risk) Defining levels of lipids in metabolic syndrome Triglycerides >=150 mg/dL HDL Cholesterol Men <40 mg /dL Women <40 mg/ dL Non-HDL cholesterol is a second target for therapy in persons with high triglycerides (>=200 mg/dL) Specimen Blood Performing Organization Address City/[facility]/Zipcode Phone Number [facility] DEPARTMENT OF PATHOLOGY AND [address] [place] [phone] [facility] MEDICINE [address] [address] Basic metabolic panel (04/13/2020 6:00 AM CDT)Only the most recent of2 results within the time period is included. Pathologist Sig nature Sodium 139 135 - 148 mEq/L [facility] Potassium 3.9 3.5 - 5.0 mEq/L [facility] Chloride 102 98 - 112 mEq/L [facility] CO2 21 (L) 24 - 31 mEq/L [facility] Anion gap 16@ANIO (H) 7 - 15 mEq/L [facility] BUN 28 (H) 8 - 23 mg/dL [facility] Creatinine 2.15 (H) 0.70 - 1.20 [facility] Comment: mg/dL [facility] results called to and read back by _HELENA MONTES (name/location) at _ 04/13/2020 07:34 _(date/time) by _MARTHA. Glucose 198 (H) 65 - 99 mg/dL [facility] Calcium 9.2 8.8 - 10.2 mg/dL [facility] Specimen Blood Performing Organization Address City/State/Zipcode Phone Number [facility] DEPARTMENT OF PATHOLOGY AND [address] [place], [place] [phone] GENOMIC MEDICINE [facility] [address] [place] [address] [place] Renal Doppler (04/12/2020 6:00 PM CDT) Specimen Narrative Performed At EXAMINATION: US RENAL DOPPLER [facility] CLINICAL HISTORY: HTN blade-vasc like ly normal GFR TECHNIQUE: Examination includes a full duplex Doppler scan of the renal vessels (real-time B mode grayscale, Doppler spectral analysis, and Doppler color flow imaging). COMPARISON: None. FINDINGS: Right renal arterial waveforms demonstrate normal sys tolic upstrokes and good end diastolic flow. The right renal vein is patent. The resistive index measures 0.69-0.72. Left renal arterial waveforms demonstrate normal systo lic upstrokes and good end diastolic flow. The left renal vein is patent . The resistive index measures 0.67- 0.71. IMPRESSION: Normal renal Doppler ultrasound examina tion. [id number] Procedure Note Interface, Radiology Results Incoming - 04/12/2020 6:58 PM CDT EXAMINATION: US RENAL DOPPLER CLINICAL HISTORY: HTN blade-vasc likely normal GFR TECHNIQUE: Examination includes a full d uplex Doppler scan of the renal vessels (real-time B mode grayscale, Doppler spectral analysis, and Doppler color flow imaging). COMPARISON: None. FINDINGS: Right renal arterial waveforms demonstr ate normal systolic upstrokes and good end diastolic flow. The right renal vein is patent. The resistive index measures 0.69-0.72. Left renal arterial waveforms demonstrat e normal systolic upstrokes and good end diastolic flow. The left renal vein is patent. The resistive index measures 0.67- 0.71. IMPRESSION: Normal renal Doppler ultrasound examina tion. 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 TECHNIQUE: Renal ultrasound performed utilizing graysc amadeo/B mode, and color Doppler technique. IMPRESSION: Right kidney: There is no hydronephrosis. Normal ech ogenicity. There is no renal mass identified sonographically. The rig ht kidney measures 12.2 cm. Left kidney: There is no hydronephrosis. Normal echo genicity. There is no renal mass identified sonographically. The lef t kidney measures 12.4 cm. Bladder: Unremarkable. Patient could not void, therefo re post void residual could not be evaluated. [id number] Procedure Note Hm Interface, Radiology Results Incoming - 04/12/2020 7:17 PM CDT EXAMINATION: US RENAL CLINICAL HISTORY: Renal failure chroni c (kidney disease) COMPARISON: None. TECHNIQUE: Renal ultrasound performed ut ilizing grayscale/B mode, and color Doppler technique. IMPRESSION: Right kidney: There is no hydronephrosis . Normal echogenicity. There is no renal mass identified sonographically. The right kidney measures 12.2 cm. Left kidney: There is no hydronephrosis. Normal echogenicity. There is no renal mass identified sonographically. The left kidney measures 12.4 cm. Bladder: Unremarkable. Patient could not void, therefore post void residual could not be evaluated. [id number] Performing Organization Address City/[facility] Phone Number [facility] [address] [place] [phone] Thyroid stimulating hormone (04/12/2020 10:50 AM CDT) Pathologist Sig [facility] TSH 0.78 0.27 - 4.20 uIU/mL [facility] Specimen Blood Performing Organization Address [facility] Phone Number [facility] DEPARTMENT OF PATHOLOGY AND [address] [place] [address] [phone] [address] T4, free (04/12/2020 10:50 AM CDT) Pathologist Sig [facility] T4, free 1.2 0.9 - 1.7 ng/dL [facility] L Specimen Performing Organization Address [facility] Phone Number [facility] DEPARTMENT OF PATHOLOGY AND [address] [place] [address] [phone] [address] Hemoglobin A1c (04/12/2020 10:50 AM CDT) Hemoglobin A1C 6.9 (H) 4.0 - 5.6 % [facility] Comment: HOSPITAL HbA1c cutoffs for diagnosing diabetes: 4.0% - 5.6% = normal 5.7% - 6.4% = increased risk for diabetes (prediabetes )9 >=6.5% = diabetes9 Goals for glycemic control (ADA 2016) < 7.0% Target for non adults with diabetes. More or less stringent targets may be appropriate for individual patients. <7.5% Target for Children and adolescents with type 1 diabetes. Specimen Blood Performing Organization Address City/[facility]/Zipcode Phone Number [facility] DEPARTMENT OF PATHOLOGY AND [address] [place] [phone] [facility] MEDIC[facility] [address] [address] CBC with platelet and differential (04/12/2020 10:47 AM CDT) WBC 9.25 4.50 - 11.00 [facility]/uL HOSPITAL RBC 4.21 (L) 4.40 - 6.00 [facility] HGB 12.1 (L) 14.0 - 18.0 [facility] g/dL [facility] HCT 38.5 (L) 41.0 - 51.0 % [facility] MCV 91.4 82.0 - 100.0 [facility] MCH 28.7 27.0 - 34.0 pg [facility] MCHC 31.4 31.0 - 37.0 [facility] RDW - SD 48.7 37.0 - 55.0 fL [facility] MPV 12.2 8.8 - 13.2 fL [facility] Platelet count 193 150 - 400 k/uL [facility] Nucleated RBC 0.00 /100 WBC [facility] Neutrophils 79.0 (H) 39.0 - 69.0 % [facility] Lymphocytes 13.6 (L) 25.0 - 45.0 % [facility] Monocytes 6.5 0.0 - 10.0 % [facility] Eosinophils 0.4 0.0 - 5.0 % [facility] Basophils 0.3 0.0 - 1.0 % [facility] Immature granulocytes 0.2Comment: 0.0 - 1.0 % [facility] "Immature HOSPITAL granulocytes" (promyelocytes , myelocytes, metamyelocytes ) Specimen Blood Performing Organization Address City/[facility] Phone Number [facility] DEPARTMENT OF PATHOLOGY AND [address] [place] [phone] GENOMIC MEDICINE [facility] [address] [place] [address] ECG 12 lead (04/12/2020 9:56 AM CDT)Only the most recent of2 resultswithin the time period is included. Pathologist Sig nature Ventricular rate 108 [facility] Atrial rate 108 [facility] OH interval 216 [facility] QRSD interval 148 [facility] QT interval 342 [facility] QTC interval 458 [facility] QRS axis 1 -70 [facility] T wave axis 63 [facility] EKG impression Sinus tachycardia with 1st d egree AV block with premature atrial complexes-Left axis deviation-Left bundle branch block-Abnormal ECG-In automated comparison with ECG of 12-APR-2020 09:54,-premature atrial complexes are now present-Nonspecific T wave [facility] MUSE abnormality no longer eviden t in Inferior leads- Specimen Narrative Performed At This result has an attachment that is no t available. Performing Organization Address City/State/Zipcode Phone Number [facility] MUSE [address] [place] [address] after 04/13/2019 Advance Directives For more information, please contact: [phone] Type Date Recorded Patient Lead Clinical Research Coordinator Explanati on Advance Directives, Living Will 07/17/2012 12:22 PM and Medical Power of Business Development
--- OUTSIDE RECORDS SUMMARY | 2020-04-13 23:36 | XMS REPORT | Continuity of Care Document ---
:1935 Author Organization [facility] t Address [address] [place] [address] Care Team Providers Name Role Phone Asked, Pcp Primary Care Physician Unavailable Norris Hills MD Attending Clinician Neetu ZHANG Attending Clinician Suzan Doherty CRNA Attending Clinician NEETU Admitting Clinician Unavailable Payers Payer Name Policy Type Policy Number Effective Date Expiration Date S isatu AETNA xxxxxxxx 2013 [place] MEDICAREAETNA 00:00:00 [place] MEDICARE HMO/PPO [id number] 4-PresentHMO AETNA - MEDICARE xxxxxxxx [facility] - MGD CAREAETNA Medical [address] MEDICARE HMO POS [id number], [place] [address] Problems Condition Condition Condition Status Onset Resolution Last Treating Co mments Source Name Details Category Date Date Treatment Clinician Date Hypertensi Hypertensi Disease Active [place] urgency ve urgency 8-04 Me thodi 00:00: st 00 DIC DIC Disease Active [facility] (dissemina (dissemina 5-24 Leila kes - parul parul 00:00: Medical intravascu intravascu 00 Ce nter lar lar coagulatio coagulatio n) n) 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[facility] (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 Leila kes - opathic opathic 00:00: Medical hemolytic hemolytic 00 Cent er anemia) anemia) 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 00:00: Medica l 00 Center Thrombocyt Thrombocyt Disease Active [facility]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 01-23 [facility] - 00:00: Medical 00 Center ARF (acute ARF (acute Disease Active [facility] renal renal 16 kes - failure) failure) 00:00: Medica l 00 Center 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 16 Leila kes - c c 00:00: 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) Right Right Problem Active [facility] sciatic [...] s - Memoria l Outpati ent Clinics COPD COPD Disease Active [facility] (chronic (chronic [facility] - obstructiv obstructiv Me dical e e Center pulmonary pulmonary disease) disease) Hypertensi Hypertensi Disease Active [facility] Cancer Cancer Disease Active Overview: [facility] prostate [facility] Diabetes Diabetes Disease Active [facility] t mellitus mellitus [facility] Arthritis Arthritis Disease Active Overview: [facility] back [facility] Allergies, Adverse Reactions, Alerts This patient has no known allergies or adverse reactions. Social History Social Habit Start Date Stop Date Quantity Comments Source History of Current smoker [facility] thodi tobacco use Sex Assigned At [facility] M ethodist Exposure to Yes Alfred Metho dist SARS-CoV-2 (event) Alcohol intake 2020-04-12 2020-04-12 Current drinker [place] [facility] 00:00:00 00:00:00 of alcohol (finding) Alcohol Comment 2020-04-12 2020-04-12 occ [facility] ethodist 00:00:00 00:00:00 Smoking Status Start Date Stop Date Source Former smoker 2020-04-12 00:00:00 2020-04-12 00:00:00 [place] [facility] Medications Ordered Filled Start Stop Current Ordering Indication Dosage Frequency Signature Comments Components Source Medication Medication Date Date Medication? Clinician (SIG) Name Name insulin 2020-0 Yes 25U [id number] Inject 25 Alfred ASPART 8-05 [id number] Units Method i (NovoLOG) 13:12: 3D under the st 100 unit/mL 46 skin 3 injection (three) times a day before meals. montelukast 2020-0 Yes 10mg QD Take 10 mg Alfred (SINGULAIR) 8-05 by mouth Meth zack 10 mg 13:12: nightly. st tablet 46 latanoprost 2020-0 Yes 1[drp] QD 1 drop [place] (XALATAN) 8-05 nightly. Method i 0.005 % 13:12: st ophthalmic 46 solution gabapentin 2020-0 Yes 300mg Q.5D Take 300 [place] (NEURONTIN) 8-05 mg by Methodi 300 mg 13:12: mouth 2 st capsule 46 (two) times a day. insulin 2020-0 Yes 50U QD Inject 50 [place] GLARGINE 8-05 Units Methodi (LANTUS) 13:12: under the st 100 unit/mL 46 skin injection nightly. (vial) atorvastati 2020-0 Yes 40mg QD Take 40 mg Alfred n (LIPITOR) 8-05 by mouth Meth zack 40 mg 13:12: daily. st tablet 46 acetaminoph 2020-0 Yes acute pain 1{tbl} Q6H Take 1 Alfred en-codeine 8-05 tablet by Meth zack (TYLENOL 13:12: mouth st WITH 46 every 6 CODEINE #3) (six) 300-30 mg hours as per tablet needed for moderate pain .acute pain. multivitami 2020-0 Yes 1{tbl} QD Take 1 [place] n 8-05 tablet by Methodi (THERAGRAN) 13:12: mouth st tablet 46 daily. cholecalcif 2019-0 Yes 2000U QD Take 2,000 Alfred keven, 8-05 Units by Methodi vitamin D3, 13:12: mouth st 50 mcg 46 daily. (2,000 unit) capsule capsule tamsulosin 2019-0 Yes .4mg QD Take 0.4 [place] (FLOMAX) 8-05 mg by Methodi 0.4 mg 13:12: mouth st capsule 46 daily with dinner. ezetimibe-s 2015- Yes 1{tbl} QD Take [address] imvastatin 5-16 tablet by Luke s - (VYTORIN) 01:42: mouth Medical 10-10 mg 10 daily. Center per tablet budesonide- Yes 2{puff} Q.5D Inhale [address] formoterol 5-16 puffs by [facility]ukes - (SYMBICORT) 01:42: mouth via M edical 160-4.5 10 inhaler 2 Center mcg/actuati (two) on inhaler times daily. traMADol Yes 50mg Take [address] (ULTRAM) 50 5-16 by mouth Luke s - mg tablet 01:42: every 6 Medic al 09 (six) Center hours as needed for Pain. tiotropium Yes 18ug QD Inhale [address] (SPIRIVA) 5-16 mcg by [facility] - 18 mcg 01:42: mouth via Medica l inhalation 09 inhaler Center capsule daily. montelukast Yes 10mg QD Take [address] (SINGULAIR) 5-16 by mouth Luke s - 10 mg 01:42: nightly. Medical tablet 09 Center losartan Yes 100mg QD Take [address] (COZAAR) 5-16 mg by [facility]ukes - 100 MG 01:42: mouth Medical tablet 09 daily. [place] insulin Yes type 2 50U QD Inject [address] glargine 5-16 diabetes Units [facility]ukes - (LANTUS) 01:42: mellitus subcutaneo Medical 100 unit/mL 09 usly Center injection nightly Use as directed . insulin Yes type 2 25U Inject [address] aspart 5-16 diabetes Units [facility]ukes - (NOVOLOG) 01:42: mellitus subcutaneo Medical 100 unit/mL 09 [facility] 3 Center injection (three) times daily before meals. Lantus Lantus Yes Ihsan INJECT [address] SoloStar SoloStar Martin UNITS Luke s - UNDER THE Memoria SKIN EVERY l MORNING Outpati BEFORE ent BREAKFAST Clinics AND AT BEDTIME AT SAME TIME DAILY Acetaminoph Acetaminoph Yes Ihsan (Schedule [facility] en-Codeine en-Codeine Martin III Drug) [facility]ukes - #3 #3 TAKE 1 Memoria TABLET [...] Martin TABLET BY [facility] - MOUTH AT Memoria BEDTIME l Outpati ent Clinics Furosemide Furosemide Yes Ihsan TAKE [address] [facility] Martin TABLET BY Lukes - MOUTH Memoria ALTERNATE l WITH 1 & Outpati 1/2 TABLET ent EVERY Clinics OTHER DAY Fenofibrate Fenofibrate Yes Ihsan TAKE [address] [facility] Martin TABLET [facility]ukes - EVERY DAY Memoria l Outpati ent Clinics Immunizations Ordered Immunization Filled Immunization Date Status Commen ts Source Name Name Meningococcal 2016-01-[address] [facility] - Conjugate 00:00:00 [facility] Center HiB 2016-01-[address] [facility] - 00[facility] Vital Signs Vital Name Observation Time Observation Value Comments Source Systolic blood 2020-04-13 07:36:54 110 mm[Hg] [place] [facility] pressure Diastolic blood 2020-04-13 07:36:54 54 mm[Hg] [place] [facility] pressure Heart rate 2020-04-13 07:36:54 80 /min Tima Chakraborty Body temperature 2020-04-13 07:36:54 36.22 [place] [facility] Respiratory rate 2020-04-13 07:36:54 18 /min Rosibel Chakraborty Oxygen saturation in 2020-04-13 07:36:54 99 /min Tima Chakraborty Arterial blood by Pulse oximetry Body height 2020-04-12 08:24:00 180.3 cm Tima Chakraborty Body weight 2020-04-12 08:24:00 132.989 kg Tima Chakraborty BMI 2020-04-12 08:24:00 40.89 kg/m2 Tima Chakraborty Procedures Procedure Date / Time Performed Performing Clinician Sourc e POC GLUCOSE 2020-04-13 07:35:00 Carter Sepulveda Meth odist CBC HEMOGRAM 2020-04-13 06:00:00 Carter Sepulveda Meth odist BASIC METABOLIC PANEL 2020-04-13 06:00:00 Carter Sepulveda n [facility] MAGNESIUM LEVEL 2020-04-13 06:00:00 Carter Sepulveda Meth odist PHOSPHORUS LEVEL 2020-04-13 06:00:00 Carter Sepulveda Met hodist LIPID PANEL 2020-04-13 06:00:00 Carter Sepulveda Meth odist ESTIMATED GFR 2020-04-13 06:00:00 Carter Sepulveda Meth odist POC GLUCOSE 2020-04-12 21:25:00 Carter Sepulveda Meth odist POC GLUCOSE 2020-04-12 18:15:00 Carter Sepulevda Meth odist US RENAL DOPPLER 2020-04-12 18:00:00 Manas [place] Met hodist US RENAL 2020-04-12 17:30:00 Manas [place] Meth odist POC GLUCOSE 2020-04-12 14:58:00 Carter Sepulveda Meth odist POC GLUCOSE 2020-04-12 13:22:00 Carter Sepulveda Meth odist HEMOGLOBIN A1C 2020-04-12 10:50:00 Carter Sepulveda Meth odist BASIC METABOLIC PANEL 2020-04-12 10:50:00 Carter Sepulveda n [facility] MAGNESIUM LEVEL 2020-04-12 10:50:00 Carter Sepulveda Meth odist PHOSPHORUS LEVEL 2020-04-12 10:50:00 Carter Sepulveda Met hodist THYROID STIMULATING 2020-04-12 10:50:00 Carter Sepulveda [facility] HORMONE ESTIMATED GFR 2020-04-12 10:50:00 Carter Sepulveda Meth odist T4, FREE 2020-04-12 10:50:00 Shen riverasylvia Alfred Meth odist HC COMPLETE BLD COUNT 2020-04-12 10:47:00 Carter Sepulveda W/AUTO DIFF ECG 12-LEAD 2020-04-12 09:56:32 Carter Sepulveda Meth odist ECG 12-LEAD 2020-04-12 09:53:43 Carter Sepulveda Alfred Meth odist POC GLUCOSE 2020-04-12 09:23:00 [place] Alfred Meth odist SARS-COV2/RT-PCR ([facility] 2020-01-23 15:00:00 [facility] Plan of Care Planned Activity Planned Date Details Comments Source Future Scheduled 2020-04-09 INFLUENZA VACCINE [place] [facility] 00:00:00 [code = INFLUENZA VACCINE] Future Scheduled 2001 65+ PNEUMOCOCCAL [place] [facility] Test 00:00:00 VACCINE (1 of 2 - PCV13) [code = 65+ PNEUMOCOCCAL VACCINE (1 of 2 - PCV13)] Future Scheduled 1986 SHINGLES VACCINES [place] [facility] Test 00:00:00 (#1) [code = SHINGLES VACCINES (#1)] Future Scheduled 1946 DIABETIC FOOT EXAM [place] [facility] Test 00:00:00 [code = DIABETIC FOOT EXAM] Future Scheduled 1936 DIABETIC RETINAL EYE [place] [facility] Test 00:00:00 EXAM [code = DIABETIC RETINAL EYE EXAM] Medication 2020-04-14 lisinopriL (PRINIVIL) [place] [facility] 00:00:00 5 mg tablet [code = 510540] Encounters Start End Encounter Admission Attending Care Care Encounter Source Date/Time Date/Time Type Type Clinicians Facility Department ID 2020-04-12 2020-04-13 Outpatient [facility] [id number] 637 [place] 00:00:00 00:00:[address] CARTER [address] 2018-05-15 2018-05-15 [facility] [id number] [address] 14:00:00 14:00[facility] 2018-05-08 2018-05-08 [facility] [id number] 15:00:00 15:00:[facility] 2018-05-01 2018-05-01 [facility] [id number] 14:30:00 14:30:00 [facility] 2018-04-21 2018-04-21 [facility] [id number] 13:22:00 13:22:00 [facility] 2018-04-02 2018-04-02 [facility] [id number] 10:30:00 10:30:00 [facility] Results Test Description Test Time Test Comments Results Result Comments Source POC glucose 2020-04-13 07:44:07 Test Item Value Reference Range Interpretation Comme nts POC glucose (test code = 177 mg/dL 65-99 H Ope rator Name: Andrew Leung [id number]) EDevice ID: [id number]: [facility] Notified medical coder Interpretation (test code = Abnormal 08816-6) [place] [facility] [id number] 07:34:36 Test Item Value Reference Range Interpretation Comments Sodium (test code = 139 135- 148 mEq/L 2951-2) Potassium (test code = 3.9 3.5- 5.0 mEq/L 2823-3) Chloride (test code = 102 98- 112 mEq/L 5-0) CO2 (test code = 2027-9) 21 24- 31 mEq/L L Anion gap (test code = 16@ANIO 7- 15 mEq/L H 07083-8) BUN (test code = 3094-0) 28 mg/dL 8-23 H Creatinine (test code = 2.15 mg/dL 0.7-1.2 H CREA T results 0-0) called to and r ead back by CHILANGO SZYMANSKI/J10 (name/location) at _ 04/13/2020 07:34 _(date/ti me) by _RA_. Glucose (test code = 198 mg/dL 65-99 H 2345-7) Calcium (test code = 9.2 mg/dL 8.8-10.2 72845-8) Lab Interpretation (test Abnormal code = 73057-2) Tima MethodistLipid [id number] 07:34:36 Test Item Value Reference Interpretation Comments Range Cholesterol (test 126 mg/dL <200 code = 2093-3) Triglycerides (test 133 mg/dL <150 code = 2571-8) HDL cholesterol 40 mg/dL >40 (test code = 5-9) LDL cholesterol 71 mg/dL <100 Result obtai mikal by direct (test code = 9-1) LDL mike surement Lipid panel SeeBelow Total Cholester ol (mg/dL) interpretation (test < 200 code = 09903-0) Desirable 200-239 Borderline -high >=240 Hi gh Triglyceri keyshawn (mg/dL) <150 No rmal 150-199 Borderline-high 200-499 High >=500 Very high HDL Choles terol (mg/dL) <40 Low (male) < 40 Low (female) L DL Cholesterol (mg /dL) <100 Optimal 1 00-129 Near or above o ptimal 130-159 Borderline-high 160-189 High >=190 Very high Risk Cat ergories that modify LDL goals.Risk Catergories LDL goal (mg/dL )CHD and CHD risk equiva lent <100 (10-year risk >20%)Multiple ( 2+) risk factors < 130 (10-year risk = <20%)0-1 risk factors <160 (<10-ye ar risk) Defining levels of lipids in metabolic syndromeTriglyc erides > =150 mg/dLHDL Choles terol Men <40 mg/dL Women <40 mg/dL Non-HDL cholest keven is a second target f or therapy in personswith high triglycerides ( >=200 mg/dL) Tima AnnaistMagnesium [id number] 07:34:36 Test Item Value Reference Range Interpretation Comments Magnesium (test code = 30237-3) 2.0 mg/dL 1.6-2.4 Tima MethodistEstimated [id number] 07:34:36 Test Item Value Reference Range Interpretation Comments Estimated GFR (test 27 mL/min/1.73 m2 Melly white Units code = 5488) InterpretationG 1 >=90 Opal l or highG2 60-89 Mildly decrease dG3a 45-59 Mil dly to moderately decr czwmdL2u 30-44 Moderately to s everely decreasedG4 15-29 Severe ly decreasedG5 <15 Kidney arlin lureThe eGFR was calcul ated using the Chron Kidney Disease Epidemiology Collaboration ( CKD-EPI) equation. Interpretation is based on recommendati ons of the National dney [facility]-Kidn ey Disease Outcome s Quality Initiat john (NKF-KDOQI) pub lished in 2013. Lab Interpretation Abnormal (test code = 17768-7) [facility] [id number] 07:18:50 Test Item Value Reference Range Interpretation Comments Phosphorus (test code = 2777-1) 3.9 mg/dL 2.4-4.5 [facility] [id number] 06:32:49 Test Item Value Reference Range Interpretation Comments WBC (test code = 74393-9) 10.84 4.50- 11.00 k/uL RBC (test code = 53146-7) 3.69 m/uL 4.4-6 L HGB (test code = 718-7) 10.6 g/dL 14-18 L HCT (test code = 4544-3) 34.7 % 41-51 L MCV (test code = 787-2) 94.0 fL 82-100 MCH (test code = 785-6) 28.7 pg 27-34 MCHC (test code = 786-4) 30.5 g/dL 31-37 L RDW - SD (test code = 99940-9) 51.8 fL 37-55 MPV (test code = 54536-7) 11.8 fL 8.8-13.2 Platelet count (test code = 202 150- 400 k/uL 11022-5) Nucleated RBC (test code = 0.00 /100 WBC 16942-8) Lab Interpretation (test code = Abnormal 11406-3) Alfred MethodistECG 12 [id number] 00:00:20 Test Item Value Reference Range Interpretation Comments Ventricular rate (test 108 code = 253) Atrial rate (test code 108 = 255) RI interval (test code 216 = 266) QRSD interval (test 148 code = 260) QT interval (test code 342 = 264) QTC interval (test code 458 = 265) QRS axis 1 (test code = -70 268) T wave axis (test code 63 = 270) EKG impression (test Sinus tachycardia with code = 273) 1st degree AV block with premature atrial complexes-Left axis deviation-Left bundle branch block-Abnormal ECG-In automated comparison with ECG of 12-APR-2020 09:54,-premature atrial complexes are now present-Nonspecific T wave abnormality no longer evident in Inferior leads- [place] Press-sense [id number] 19:14:23Hm Interface, Radiology Results - 04/12/2020 7:17 PM CDTEXAMINATION: US RENALCLINICAL HISTORY: Renal failure chronic (kidney disease)COMPARISON: None.TECHNIQUE: Renal ultrasound performedutilizing grayscale/B mode, and color Doppler technique.IMPRESSION: Right kidney: There is no hydronephrosis. Normal echogenicity. There is no renal mass identified sonographically. The right kidneymeasures 12.2 cm.Left kidney: There is no hydronephrosis. Normal echogenicity. There is no renal m ass identified sonographically. The left kidney measures 12.4 cm.Bladder: Unremarkable. Patient could not void, therefore post void residual could not be evaluated.[id number] [facility] Renal [id number] 18:55:28Hm Interface, Radiology Results Incoming - 04/12/2020 6:58 PM CDTEXAMINATION: US RENAL DOPPLERCLINICAL HISTORY: HTN blade-vasc likely normal GFRTECHNIQUE: Examination includes a full duplex Dopplerscan of the renal vessels (real-time B mode grayscale, Doppler spectral analysis, and Doppler color flow imaging).COMPARISON: None.FINDINGS: Right renal arterial waveforms demonstrate normal systolicupstrokes and good end diastolic flow. The right renal vein is patent. The resistive index measures 0.69-0.72.Left renal arterial waveforms demonstrate normal systolic upstrokes and good end diastolic flow. The left renal vein is patent. The resistive index measures 0.67- 0.71.IMPRESSION: Normal renal Doppler ultrasound examination.[id number] MethodistT4, [id number] 12:56:51 Test Item Value Reference Range Interpretation Comments T4, free (test code = 3024-7) 1.2 ng/dL 0.9-1.7 [place] MethoddmitryThyroid stimulating [id number] 12:56:51 Test Item Value Reference Range Interpretation Comments TSH (test code = 3016-3) 0.78 0.27- 4.20 uIU/mL [place] MethodistHemoglobin [id number] 12:35:56 Test Item Value Reference Range Interpretation Comments Hemoglobin A1C (test 6.9 % 4-5.6 H HbA1c c utoffs for code = 61613-8) diagnosing diabetes:4.0% - 5.6% = normal5.7% - 6.4% = increased risk for diabetes (prediabetes)9> =6.5% = bhegosrq9Zuuw s for glycemic contro l (ADA 2016)< 7.0% Ta rget for non adults with jose ramon betes. More or less stringent targe ts may be appropriate for individual sita ents. <7.5% Target for Children and adolescents wit h type 1 diabetes. Lab Interpretation (test Abnormal code = 59836-9) [facility]ist[facility] with platelet and [id number] 12:23:52 Test Item Value Reference Range Interpretation Comments WBC (test code = 13368-8) 9.25 4.50- 11.00 k/uL RBC (test code = 39922-6) 4.21 m/uL 4.4-6 L HGB (test code = 718-7) 12.1 g/dL 14-18 L HCT (test code = 4544-3) 38.5 % 41-51 L MCV (test code = 787-2) 91.4 fL 82-100 MCH (test code = 785-6) 28.7 pg 27-34 MCHC (test code = 786-4) 31.4 g/dL 31-37 RDW - SD (test code = 48.7 fL 37-55 52734-5) MPV (test code = 52197-6) 12.2 fL 8.8-13.2 Platelet count (test code 193 150- 400 k/uL = 64268-3) Nucleated RBC (test code 0.00 /100 WBC = 72420-3) Neutrophils (test code = 79.0 % 39-69 H 32764-7) Lymphocytes (test code = 13.6 % 25-45 L 66077-5) Monocytes (test code = 6.5 % 0-10 80509-0) Eosinophils (test code = 0.4 % 0-5 36246-0) Basophils (test code = 0.3 % 0-1 50698-1) Immature granulocytes 0.2 % 0-1 "Immat ure (test code = 14683-9) granul ocytes" (promyelocytes, myelocytes, metamyelocytes) Lab Interpretation (test Abnormal code = 72273-0) Tima SandovalARS-CoV2/RT-PCR ([facility] & Ref Labs)2020-01-23 21:06:00 Test Item Value Reference Range Interpretation Comments SARS-COV2/RT-PCR (test Detected Not Detected, AA code = 00767-7) Negative SARS-COV-2 PERFORMING [facility] (test code = 91054-5) BETTE (test code = BETTE) Results are for the detection of SARS-CoV-2 RNA. The SARS-CoV-2 RNA is generally detectable [...] of the Act. Fact Sheet for Healthcare Providers:https://www. [employer]Documents/ Xpert%20Xpress%20SARS% 20CoV-2/Fact%20Sheets/ 302-3802%14XRRV-QGN-4% 20HEALTHCARE%20PROVIDE RS%20FACT%20SHEET.pdf Fact Sheet for Healthcare Patients:https://www.[employer]/Documents/X pert%20Xpress%20SARS%2 0CoV-2/Fact%20Sheets/3 02-3801%16SDOA-GNP-8%2 0PATIENT%20FACT%20SHEE T.pdf Performing Laboratory:[facility] [place] [address] Lab Interpretation Abnormal (test code = 91930-1) [facility]F [facility])2020-01-23 21:06:00 Test Item Value Reference Range Interpretation Comments SARS-COV2/RT-PCR (test code = Detected Not Detected, Negative A A [id number]) SARS-COV-2 PERFORMING LAB [facility] (test code = 0795391) Results are for the detection of SARS-CoV-2 RNA. The SARS-CoV-2 RNA is generally detectable [...] of detection for this assay is 250 copies/mL.This SARS CoV-2 test is a rapid, nhon-vuxtHN-FXB test intended for the qualitative detection of nucleic acid from SARS-CoV-2 in a nasopharyngeal swab specimen collected from individuals suspected of COVID-19 by their healthcare provider.This test has not been Food and Drug Administration (FDA) cleared or approved and has been authorized by FDA under an Emergency Use Authorization (EUA). This EUA will be effective until the declaration that ci rcumstances exist justifying the authorization of the emergency use of in vitro diagnostic tests fordetection and/or diagnosis of COVID-19 is terminated under Section 564(b)(2) of the Act or the EUA is revoked under Section 564(g) of the Act.Fact Sheet for Healthcare Providers:https://www.[employer] Documents/Xpert%20Xpress%20SARS%20CoV-2/Fact%20Sheets/302-1372%21FZYI-LRR-8%20HE ALTHCARE%20PROVIDERS%20FACT%20SHEET.pdfFact Sheet for Healthcare Patients:https://www.[employer]Documents/Xpert%20Xpress %20SARS%20CoV-2/Fact%20Sheets/115-7931%03UKGK-PLL-2%20PATIENT%20FACT%20SHEET.pdf Performing Laboratory:[facility] [place] [address]
[2020-04-14] MEDS ORDERED: ACETAMINOPHEN 500 MG TAB ONE (00:34)
[2020-04-14 00:39] LABS: Protime INR 1.24
[2020-04-14 00:41] LABS: Absolute Lymphocytes (CBC) 1.2 K/uL (0.7-4.9); Basophils % 0.5 % (0-1.3); Hematocrit 31.6 % (39.6-49.0); Lymphocytes % 10.1 % (15.3-44.8); MPV 10.4 fL (7.6-11.3); RBC Red Blood Cell Count 3.57 M/uL (4.33-5.43)
[2020-04-14 00:53] LABS: Bilirubin Direct 0.1 mg/dL (0-0.2); Bilirubin Total 0.4 mg/dL (0.2-1.0); Potassium 3.8 mmol/L (3.5-5.1); Protein, Total 6.8 g/dL (6.4-8.2); Troponin (Emerg Dept Use Only) 0.03 ng/mL (0.0-0.045)
[2020-04-14] MEDS ORDERED: FENTANYL CITR 100 MCG/2 ML ONE (03:12)
--- NOTE | 2020-04-14 03:33 | ER ---
Nurse's Notes [facility] Name: Gonzalo Waldron Age: 84 yrs Sex: Male : 1935 Arrival Date: 04/13/2020 Time: 23:38 Bed 19 Private MD: Diagnosis: Weakness-general Presentation: 04/13 23:45 Chief complaint: EMS states: BIBA FROM HOME. PT WAS DC FROM [facility] TODAY. WAS TO mt2 RETINAL SX BUT DUE TO HYPERTENSION WAS ADMITTED TO CORRECT IT. DID NOT HAVE SX. WAS DC WITH LISINOPRIL 5MG WHICH HE TOOK TODAY. AFTER DINNER ATTEMPTED TO STAND LEGS GAVE OUT SLID TO FLOOR. DID NOT HIT HEAD NEG LOC. PT WAS DRAGGED TO BATHROOM TO USE BY SPOUSE SKIN TEAR ON LEFT ELBOW. SPOUSE CALL EMS 1 HOUR AFTER. ON SCENE SBP AT 70. UNABLE TO GET UP FULL BODY LIFT TO GURNEY. GIVEN 250 ML BOLUS GIVEN BY EMS. SBP INCREASED TO 90. EKG INDICATED LEFT BUNDLE BRANCH NEG CARDIAC HX. PT WITH DM BGL ON SCENE 70 GIVEN GLUCOSE. Care prior to arrival: Medication(s) given: Glucagon, IV initiated. Glucose check: 70. Mechanism of Injury: SLID TO FLOOR. Trauma event details: Injury occurred: at home. Injury occurred: April 13, 2020. 23:45 Acuity: MICAH 3 mt2 23:45 Method Of Arrival: EMS: [facility] mt2 23:50 Coronavirus screen: Client denies travel out of the [place] in the last 14 days. At this mt2 time, the client does not indicate any symptoms associated with coronavirus-19. Ebola Screen: No symptoms or risks identified at this time. Initial Sepsis Screen: Does the patient meet any 2 criteria? No. Patient's initial sepsis screen is negative. Does the patient have a suspected source of infection? No. Patient's initial sepsis screen is negative. Risk Assessment: Do you want to hurt yourself or someone else? Patient reports no desire to harm self or others. Onset of symptoms was April 13, 2020. Trauma Activation: Not Applicable Physician: ED Physician; Name: ; Notified At: ; Arrived At: Physician: General Surgeon; Name: ; Notified At: ; Arrived At: Physician: Radiology; Name: ; Notified At: ; Arrived At: Physician: Respiratory; Name: ; Notified At: ; Arrived At: Physician: Lab; Name: ; Notified At: ; Arrived At: Historical: - Allergies: 04/14 03:51 Tape; mt2 - Home Meds: 03:51 Nataly-D 12 Hour 60-120 mg Oral Tb12 daily [Active]; Lipitor 40 mg Oral tab 1 tab once mt2 daily [Active]; Novolog 25 units Sub-Q three times a day [Active]; atorvastatin 40 mg Oral tab 1 tab once daily [Active]; - PMHx: 03:51 COPD; Diabetes - NIDDM; Hyperlipidemia; Hypertension; Prostate Cancer; mt2 - Immunization history: Last tetanus immunization: - up to date. - Social history:: Smoking status: Patient denies any tobacco usage or history of. Patient/guardian denies using alcohol, street drugs. Screenin/05 23:50 Abuse screen: Denies threats or abuse. Tuberculosis screening: No symptoms or risk mt2 factors identified. Fall risk At risk due to age, immobility. 23:50 Nutritional screening: No deficits noted. Fall Risk mt2 Primary Survey: 23:51 NO uncontrolled hemorrhage observed. A: The patient is alert. Airway: patent. mt2 Breathing/Chest: Respiratory pattern: regular. Circulation: Cardiac rhythm: sinus tachycardia Heart tones present. Skin color: pink. Disability Alert. Exposure/Environment: Obvious injury(ies) are noted at this time: SKIN TEAR ON LEFT ELBOW. 04/14 00:30 Reassessment Airway Airway Patent Breathing/Chest Respiratory pattern Regular mt2 Circulation Heart rhythm Sinus tach Disability Alert. Secondary Survey: 04/13 23:51 HEENT: No deficits noted. Gastrointestinal: No deficits noted. : No deficits noted. mt2 Musculoskeletal: Reports weakness in GENERALIZED. Injury Description: Skin tears sustained to left antecubital area. Assessment: 23:45 General: Appears uncomfortable, Behavior is cooperative. Pain: Complains of pain in mt2 GENERALIZED Pain currently is 5 out of 10 on a pain scale. 23:50 Neuro: No deficits noted. Cardiovascular: Reports fatigue. Respiratory: No deficits mt2 noted. GI: No deficits noted. : No deficits noted. EENT: No deficits noted. Derm: Skin has skin tears on left elbow. Musculoskeletal: Reports weakness in generalized. 04/14 00:40 Reassessment: Patient and/or family updated on plan of care and expected duration. Pain mt2 level reassessed. Patient is alert, oriented x 3, equal unlabored respirations, skin warm/dry/pink. General: Appears uncomfortable, Behavior is cooperative. Pain: Complains of pain in generalized. 01:12 Reassessment: Patient and/or family updated on plan of care and expected duration. Pain mt2 level reassessed. Patient is alert, oriented x 3, equal unlabored respirations, skin warm/dry/pink. General: Appears comfortable, Behavior is cooperative. Pain: Complains of pain in GENERALIZED Pain currently is 4 out of 10 on a pain scale. Quality of pain is described as aching. 02:00 Reassessment: Patient and/or family updated on plan of care and expected duration. Pain mt2 level reassessed. Patient is alert, oriented x 3, equal unlabored respirations, skin warm/dry/pink. General: Appears uncomfortable, Behavior is cooperative. Pain: Complains of pain in back Pain currently is 10 out of 10 on a pain scale. 03:08 Reassessment: Patient and/or family updated on plan of care and expected duration. Pain mt2 level reassessed. Patient is alert, oriented x 3, equal unlabored respirations, skin warm/dry/pink. General: Appears uncomfortable, Behavior is cooperative. Pain: Complains of pain in back Pain currently is 9 out of 10 on a pain scale. Quality of pain is described as aching. Vital Signs: 04/13 23:50 BP 182 / 122; Pulse 95; Resp 19; Temp 97.9(O); Pulse Ox 96% on R/A; Weight 131.54 kg; mt2 Pain 5/10; 04/14 00:42 BP 125 / 67; Pulse 101; Resp 22; Pulse Ox 96% on R/A; Pain 5/10; mt2 01:13 BP 137 / 91; Pulse 104; Resp 22; Pulse Ox 94% ; Pain 4/10; mt2 02:00 BP 114 / 67; Pulse 102; Resp 22; Pulse Ox 96% on R/A; Pain 10/10; mt2 03:10 BP 108 / 61; Pulse 105; Resp 22; Pulse Ox 96% on R/A; Pain 9/10; mt2 Marcia Coma Score: 04/13 23:50 Eye Response: spontaneous(4). Verbal Response: oriented(5). Motor Response: obeys mt2 commands(6). Total: 15. Trauma Score (Adult): 23:50 Eye Response: spontaneous(1); Verbal Response: oriented(1); Motor Response: obeys mt2 commands(2); Systolic BP: > 89 mm Hg(4); Respiratory Rate: 10 to 29 per min(4); [place] Score: 15; Trauma Score: 12 ED Course: 23:38 Patient arrived in ED. cf2 23:40 David Toledo PA is PHCP. cp 23:40 Naresh Angulo MD is Attending Physician. cp 23:44 Farrah Galloway RN is Primary Nurse. mt2 23:49 Triage completed. mt2 23:50 Patient has correct armband on for positive identification. Bed in low position. Call mt2 light in reach. Side rails up X 1. 23:50 Arm band placed on. mt2 23:50 Maintain EMS IV. Dressing intact. Good blood return noted. Site clean \T\ dry. Gauge \T\ mt 2 site: 20G RIGHT HAND. Patient maintains SpO2 saturation greater than 95% on room air. 23:50 Thermoregulation: warm blanket given to patient. mt2 08/06 00:30 Initial lab(s) drawn, by nj, sent to lab. Inserted saline lock: 20 gauge in left mt2 forearm, using aseptic technique. Blood collected. 03:54 No provider procedures requiring assistance completed. IV discontinued, intact, mt2 bleeding controlled, No redness/swelling at site. Pressure dressing applied. 04:42 XRAY Chest (1 view) In Process Unspecified. EDMS Administered Medications: 00:34 Drug: Tylenol 1000 mg Route: PO; mt2 01:00 Follow up: Response: No adverse reaction; Pain is decreased mt2 03:06 Drug: fentaNYL (PF) 25 mcg Route: IVP; Site: left forearm; mt2 03:25 Follow up: Response: No adverse reaction; Pain is decreased mt2 Intake: 0805 23:50 PO: 0ml; IV: 250ml (IV Fluid); Total: 250ml. mt2 Outcome: 23:50 Discharged to home via wheelchair. mt2 23:50 Condition: good 23:50 Patient's length of stay was not longer than 2 hours. 04/14 03:32 Discharge ordered by . cp 03:54 Discharge instructions given to patient, Instructed on discharge instructions, follow mt2 up and referral plans. medication usage, Demonstrated understanding of instructions, follow-up care, medications. 03:55 Patient left the ED. mt2 Signatures: Dispatcher [employer] EDMS David Toledo PA PA cp [place], [place] cf2 Farrah Galloway RN RN mt2
--- NOTE | 2020-04-14 03:33 | EDPHYS ---
Physician Documentation [facility] Name: Gonzalo Waldron Age: 84 yrs Sex: Male : 1935 Arrival Date: 04/13/2020 Time: 23:38 Bed 19 Private MD: ED Physician Naresh Angulo HPI: 04/13 23:50 This 84 yrs old Male presents to ER via EMS with complaints of Fall Injury. cp 23:50 Details of fall: The patient fell from seated position, slid down to floor from chair. cp Onset: The symptoms/episode began/occurred 1 hour(s) ago. Associated injuries: The patient sustained no obvious injury. Patient reports he was unable to get up from floor after sliding out of chair onto ground. EMS was called for lifting assistance and patient was found to have low blood pressure. Patient reports being discharged yesterday from [facility] and recently started on Lisinopril for blood pressure. Patient was in hospital for eye surgery but surgery was postponed due to elevated blood pressure. Historical: - Allergies: 04/14 03:51 Tape; mt2 - Home Meds: 03:51 Nataly-D 12 Hour 60-120 mg Oral Tb12 daily [Active]; Lipitor 40 mg Oral tab 1 tab once mt2 daily [Active]; Novolog 25 units Sub-Q three times a day [Active]; atorvastatin 40 mg Oral tab 1 tab once daily [Active]; - PMHx: 03:51 COPD; Diabetes - NIDDM; Hyperlipidemia; Hypertension; Prostate Cancer; mt2 - Immunization history: Last tetanus immunization: - up to date. - Social history:: Smoking status: Patient denies any tobacco usage or history of. Patient/guardian denies using alcohol, street drugs. ROS: 00:00 Constitutional: Negative for body aches, chills, fever, poor PO intake. cp 00:00 Eyes: Negative for injury, pain, redness, and discharge. cp 00:00 ENT: Negative for ear pain, sore throat, difficulty swallowing, difficulty handling secretions. 00:00 Cardiovascular: Positive for edema, Negative for chest pain, palpitations. 00:00 Respiratory: Negative for cough, shortness of breath, wheezing. 00:00 Abdomen/GI: Negative for abdominal pain, nausea, vomiting, and diarrhea. 00:00 Back: Positive for pain at rest, pain with movement. 00:00 Skin: Negative for rash. 00:00 Neuro: Positive for general weakness, Negative for altered mental status, headache, loss of consciousness, syncope. Exam: 00:05 Constitutional: The patient appears in no acute distress, alert, awake, cp non-diaphoretic, non-toxic, well developed, well nourished, obese. 00:05 Head/Face: Normocephalic, atraumatic. cp 00:05 Eyes: Periorbital structures: appear normal, Pupils: equal, round, and reactive to light and accomodation, Extraocular movements: intact throughout, Conjunctiva: normal, no exudate, no injection, Sclera: no appreciated abnormality, Lids and lashes: appear normal, bilaterally. 00:05 ENT: External ear(s): are unremarkable, Nose: is normal, Mouth: Lips: moist, Oral mucosa: moist, Posterior pharynx: Airway: no evidence of obstruction, patent. 00:05 Neck: ROM/movement: is normal, is supple, without pain, no range of motions limitations, no meningismus. 00:05 Chest/axilla: Inspection: normal, Palpation: is normal, no crepitus, no tenderness. 00:05 Cardiovascular: Rate: normal, Rhythm: regular, Edema: pedal edema, that is moderate, JVD: is not appreciated. 00:05 Respiratory: the patient does not display signs of respiratory distress, Respirations: normal, no use of accessory muscles, no retractions, no splinting, labored breathing, is not present, Breath sounds: are clear throughout, no decreased breath sounds, no stridor, no wheezing. 00:05 Abdomen/GI: Inspection: obese Bowel sounds: active, all quadrants, Palpation: abdomen is soft and non-tender, in all quadrants. 00:05 Back: pain, that is mild, ROM is painful. 00:05 Musculoskeletal/extremity: Exam is negative for deformity, injury. 00:05 Skin: cellulitis, is not appreciated. 00:05 Neuro: Orientation: to person, place \T\ time. Mentation: is normal, Cerebellar function: is grossly normal, Motor: moves all fours, general weakness with no focal deficits, Sensation: is normal. Vital Signs: 04/13 23:50 BP 182 / 122; Pulse 95; Resp 19; Temp 97.9(O); Pulse Ox 96% on R/A; Weight 131.54 kg; mt2 Pain 5/10; 04/14 00:42 BP 125 / 67; Pulse 101; Resp 22; Pulse Ox 96% on R/A; Pain 5/10; mt2 01:13 BP 137 / 91; Pulse 104; Resp 22; Pulse Ox 94% ; Pain 4/10; mt2 02:00 BP 114 / 67; Pulse 102; Resp 22; Pulse Ox 96% on R/A; Pain 10/10; mt2 03:10 BP 108 / 61; Pulse 105; Resp 22; Pulse Ox 96% on R/A; Pain 9/10; mt2 Ollie Coma Score: 04/13 23:50 Eye Response: spontaneous(4). Verbal Response: oriented(5). Motor Response: obeys mt2 commands(6). Total: 15. Trauma Score (Adult): 23:50 Eye Response: spontaneous(1); Verbal Response: oriented(1); Motor Response: obeys mt2 commands(2); Systolic BP: > 89 mm Hg(4); Respiratory Rate: 10 to 29 per min(4); Marcia Score: 15; Trauma Score: 12 MDM: 23:42 Patient medically screened. 04/14 00:00 Differential diagnosis: closed head injury, contusion, fracture, sepsis, syncope, cp cardiac arrythmia. 03:30 Data reviewed: vital signs, nurses notes, lab test result(s), radiologic studies, cp ultrasound, I have discussed the patient's presentation/case with the attending Emergency Department Physician; and as a result, I will discharge patient. 03:30 Test interpretation: by ED physician or midlevel provider: ECG, plain radiologic cp studies. 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 Response to treatment: the patient's symptoms have markedly improved after treatment, and as a result, I will discharge patient. 04/13 23:54 Order name: Basic Metabolic Panel; Complete Time: 01:47 cp 04/14 01:24 Interpretation: Normal except: CL 109; BUN 48; CRE 3.23; GFR 18. cp / 23:54 Order name: CBC with Diff; Complete Time: 00:46 cp 08/ 00:46 Interpretation: Normal except: WBC 12.3; RBC 3.57; HGB 10.5; HCT 31.6; EUGENIA% 80.7; LYM% cp 10.1; NEUT A 9.9. 08 23:54 Order name: LFT's; Complete Time: 01:47 cp 08/ 01:24 Interpretation: Normal except: ALB 3.0; GLOB 3.8; A/G 0.8. cp 04/13 23:54 Order name: Magnesium; Complete Time: 01:47 cp 04/13 23:54 Order name: NT PRO-BNP; Complete Time: 01:47 cp 08/ 01:47 Interpretation: Abnormal: NT PRO-BNP 2420. cp 04/13 23:54 Order name: PT-INR; Complete Time: 00:50 cp 04/14 00:51 Interpretation: Abnormal: PT 14.6. cp 04/13 23:54 Order name: Troponin (emerg Dept Use Only); Complete Time: 01:47 cp 04/14 01:25 Interpretation: Within normal limits: TROPED 0.03. cp 08/ 23:54 Order name: XRAY Chest (1 view) cp 04/13 23:54 Order name: Urine Microscopic Only cp 04/13 23:54 Order name: Procalcitonin; Complete Time: 01:23 cp / 01:23 Interpretation: Within normal limits. cp 04/13 23:54 Order name: Lactate; Complete Time: 01:23 cp / 01:24 Interpretation: Within normal limits. cp / 01:21 Order name: Creatine Phosphokinase; Complete Time: 01:47 EDMS 04/14 02:38 Order name: Urine Dipstick--Ancillary (enter results) 2 08 23:54 Order name: EKG; Complete Time: 23:55 cp 04/13 23:54 Order name: Cardiac monitoring; Complete Time: 00:06 cp 04/13 23:54 Order name: EKG - Nurse/Tech; Complete Time: 00:06 cp 04/13 23:54 Order name: IV Saline Lock; Complete Time: 00:35 cp 04/13 23:54 Order name: Labs collected and sent; Complete Time: 00:35 cp 04/13 23:54 Order name: O2 Per Protocol; Complete Time: 01:20 cp 04/13 23:54 Order name: O2 Sat Monitoring; Complete Time: 00:35 cp 04/13 23:54 Order name: Urine Dipstick-Ancillary (obtain specimen) 04/14 02:04 Order name: Cath; Complete Time: 02:53 cp Administered Medications: 00:34 Drug: Tylenol 1000 mg Route: PO; mt2 01:00 Follow up: Response: No adverse reaction; Pain is decreased mt2 03:06 Drug: fentaNYL (PF) 25 mcg Route: IVP; Site: left forearm; mt2 03:25 Follow up: Response: No adverse reaction; Pain is decreased mt2 Disposition: 04/14/20 03:32 Discharged to Home. Impression: Weakness - general. - Condition is Stable. - Discharge Instructions: Weakness. - Medication Reconciliation Form, Thank You Letter, Antibiotic Education, Prescription Opioid Use form. - Follow up: Private Physician; When: 1 - 2 days; Reason: Recheck today's complaints. - Problem is new. - Symptoms have improved. Addendum: 04/15/2020 04:31 Co-signature as Attending Physician, Naresh Angulo MD. [facility] Signatures: Dispatcher [employer] EDSC David Toledo PA PA cp Holmes, Maurice, MD MD [id number] Farrah Galloway RN RN mt2 Corrections: (The following items were deleted from the chart) 04/14 01:29 01:22 CREATINE PHOSPHOKINASE+C.LAB.BRZ ordered. EDSC EDMS 03:55 03:32 04/14/2020 03:32 Discharged to Home. Impression: Weakness - general. Condition is mt2 Stable. Forms are Medication Reconciliation Form, Thank You Letter, Antibiotic Education, Prescription Opioid Use. Follow up: Private Physician; When: 1 - 2 days; Reason: Recheck today's complaints. Problem is new. Symptoms have improved. cp
[2020-04-14 04:00] LABS: Calcium Oxalate Crystals- Ur FEW (NONE SEEN); Urine Bacteria 20-50 /HPF (NONE SEEN); Urine Culture Reflex Order REFLEXED; Urine RBC <5 /HPF (NONE SEEN); Urine Waxy Casts 0-5 /LPF (NONE SEEN)
[2020-04-14 04:01] VITALS: TEMP 97.9
[2020-04-14 04:02] LABS: Urine Blood NEGATIVE (NEG); Urine Glucose NEGATIVE (NEG); Urine Protein 3+ (NEG); Urine Specific Gravity >1.030 (1.005-1.030)
[2020-04-14 04:05] VITALS: O2SAT 96
[2020-04-14 04:06] VITALS: BP 108/61
--- NOTE | 2020-04-14 07:29 | RAD REPORT ---
EXAM DESCRIPTION: RAD - Chest Single View - 04/14/2020 4:42 am CLINICAL HISTORY: weakness, syncope, hypertension, COPD COMPARISON: Portable January 26 TECHNIQUE: AP portable chest image was obtained 04/14/2020 4:42 am . FINDINGS: Lung volumes are low. No peripheral mass or consolidation. No significant failure or volum e overload. Heart and vasculature are normal. No measurable pleural effusion and no pneumothorax. No acute bony abnormality seen. No acute aortic findings suspected. IMPRESSION: No acute cardiopulmonary process. No significant change from comparison.
== END 2020-04-14 03:55 | disposition home or self-care (01) ==
LOC: ER 23:33
DX: R53.1 Weakness (principal); E78.5 Hyperlipidemia, unspecified; I10 Essential (primary) hypertension; J44.9 Chronic obstructive pulmonary disease, unspecified; Z85.46 Personal history of malignant neoplasm of prostate
CPT/HCPCS: 93005; 87088; 85025; 87086; 80048; 36415; 83735; 82550; 85610; 80076; 83605; 84484; 84145; 83880; 71045; J3010; 81003; 81015; 96374; 99284

== ENCOUNTER 2020-04-14 14:50 | Observation (INO) | payer OTHER ==
--- OUTSIDE RECORDS SUMMARY | 2020-04-14 15:08 | XMS REPORT | Clinical Summary ---
:1935 Author Organization [facility] Address [address] [place] [address] Care Team Providers Name Role Phone Unavailable [...] Team Description 01/23/2020 Lab Requisition Lab after 04/14/2019 Immunizations Name Dates Previously Given Next Due [...] procedure are in the results section. after 04/14/2019 Results SARS-CoV2/RT-PCR ([facility]) (01/23/2020 3:00 PM CDT) SARS-COV2/RT-PCR Detected (AA) Not Detected, Negative [facility] SARS-COV-2 PERFORMING LAB [facility] Specimen Other Narrative Performed At Results are for the detection of SARS-CoV-2 [facility] RNA. The SARS-CoV-2 RNA is generally [...] the Act. Fact Sheet for Healthcare Providers: https://www.[employer]/Documents/Xpert%20Xpr ess%20SARS%20CoV-2/Fact%20Sheets/302-3802%20S ARS-COV-2%20HEALTHCARE%20PROVIDERS%20FACT%20S HEET.pdf Fact Sheet for Healthcare Patients: https://www.[employer]/Documents/Xpert%20Xpr ess%20SARS%20CoV-2/Fact%20Sheets/302-3801%20S ARS-COV-2%20PATIENT%20FACT%20SHEET.pdf Performing Laboratory: [address] [place] [address] Performing Organization Address City/State/Zipcode Phone Number [facility] [address] [place] [id number] [facility] after 04/14/2019 Insurance Payer Benefit Plan / Subscriber ID Type Phone Address Group [employer] - MEDICARE [employer] MEDICARE HMO xxxxxxxx [address] [place] [address] Advance Directives For more information, please contact:[address] [phone] Code Status Date Activated Date Inactivated Comments Full Code 01/23/2016 3:59 AM 02/08/2016 11:28 PM This code status was determined by: Patient
--- OUTSIDE RECORDS SUMMARY | 2020-04-14 15:08 | XMS REPORT | Clinical Summary ---
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 after 04/14/2019 Results POC glucose (04/13/2020 7:35 AM CDT)Only the most recent of6 resultswithin the time period is included. [facility] POC glucose 177 (H) 65 - 99 mg/dL [facility] Comment: HOSPITAL Retail Special Event Associate Name: Andrew Gar Device ID: [id number] Chartable: [facility] Notified RN Specimen Blood Performing Organization Address City/[facility]/Zipcode Phone Number [facility] DEPARTMENT OF PATHOLOGY AND [address] [place] [phone] Estimated GFR (04/13/2020 6:00 AM CDT)Only the most recent of2 resultswithin the time period is included. [facility] Estimated GFR 27 (A) mL/min/1.73 [facility] Comment: HOSPITAL Catergory Units Interpretation G1 >=90 [...] Specimen Performing Organization Address City/State/Zipcode Phone Number [facility] DEPARTMENT OF PATHOLOGY AND [address] [place] [phone] CBC hemogram (04/13/2020 6:00 AM CDT) [facility] WBC 10.84 4.50 - 11.00 k/uL [facility] RBC 3.69 (L) 4.40 - 6.00 m/uL [facility] HGB 10.6 (L) 14.0 - 18.0 g/dL [facility] HCT 34.7 (L) 41.0 - 51.0 % [facility] MCV 94.0 82.0 - 100.0 fL [facility] MCH 28.7 27.0 - 34.0 pg [facility] MCHC 30.5 (L) 31.0 - 37.0 g/dL [facility] RDW - SD 51.8 37.0 - 55.0 fL [facility] MPV 11.8 8.8 - 13.2 fL [facility] Platelet count 202 150 - 400 k/uL [facility] Nucleated RBC 0.00 /100 WBC [facility] Specimen Blood Performing Organization Address [facility] Phone Number [facility] DEPARTMENT OF PATHOLOGY AND [address] [place] [address] [place] [phone] Phosphorus level (04/13/2020 6:00 AM CDT)Only the most recent of2 resultswithin the time period is included. Pathologist Sig nature Phosphorus 3.9 2.4 - 4.5 mg/dL [facility] Specimen Blood Performing Organization Address [facility] Phone Number [facility] DEPARTMENT OF PATHOLOGY AND [address] [place] [address] [phone] [address] Magnesium level (04/13/2020 6:00 AM CDT)Only the most recent of2 resultswithin the time period is included. Pathologist Sig nature Magnesium 2.0 1.6 - 2.4 mg/dL [facility] Specimen Blood Performing Organization Address [facility] Phone Number [facility] DEPARTMENT OF PATHOLOGY AND [address] [place] [address] [phone] [phone] Lipid panel (04/13/2020 6:00 AM CDT) Cholesterol 126 <200 mg/dL [facility] Triglycerides 133 <150 mg/dL [facility] HDL cholesterol 40 >40 mg/dL [facility] LDL cholesterol 71Comment: Result <100 mg/dL [place] obtained by direct [facility] LDL measurement [facility] Lipid panel [facility] interpretation Comment: [facility] Total Cholesterol (mg/dL) HOSPIT [facility] <200 Desirable [...] (>=200 mg/dL) Specimen Blood Performing Organization Address City/[facility]/Zipcode Phone Number [facility] DEPARTMENT OF PATHOLOGY AND [address] [place] [phone] [facility] [address] [address] Basic metabolic panel (04/13/2020 6:00 AM CDT)Only the most recent of2 results within the time period is included. Pathologist Sig nature Sodium 139 135 - 148 mEq/L [facility] Potassium 3.9 3.5 - 5.0 mEq/L [facility] Chloride 102 98 - 112 mEq/L [facility] CO2 21 (L) 24 - 31 mEq/L [facility] Anion gap 16@ANIO (H) 7 - 15 mEq/L [facility] BUN 28 (H) 8 - 23 mg/dL [facility] Creatinine 2.15 (H) 0.70 - 1.20 [facility] Comment: mg/dL [facility] results called to and read back by _HELENA MONTES (name/location) at _ 04/13/2020 07:34 _(date/time) by _MARTHA. Glucose 198 (H) 65 - 99 mg/dL [facility] Calcium 9.2 8.8 - 10.2 mg/dL [facility] Specimen Blood Performing Organization Address City/State/Zipcode Phone Number [facility] DEPARTMENT OF PATHOLOGY AND [address] [place], [place] [phone] GENOMIC MEDICINE [facility] [address] [place] [address] [place] Renal Doppler (04/12/2020 6:00 PM CDT) Specimen Narrative Performed At EXAMINATION: [place] RENAL [facility]PLER [facility] CLINICAL HISTORY: HTN blade-vasc like ly normal [...] IMPRESSION: Normal renal Doppler ultrasound examina tion. [id number] Procedure Note Interface, Radiology Results Incoming - [...] IMPRESSION: Normal renal Doppler ultrasound examina tion. 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 TECHNIQUE: Renal [...] post void residual could not be evaluated. [id number] Procedure Note Hm Interface, Radiology Results Incoming [...] post void residual could not be evaluated. [id number] Performing Organization Address City/[facility] Phone Number [facility] [address] [place] [phone] Thyroid stimulating hormone (04/12/2020 10:50 AM CDT) Pathologist Sig [facility] TSH 0.78 0.27 - 4.20 uIU/mL [facility] Specimen Blood Performing Organization Address [facility] Phone Number [facility] DEPARTMENT OF PATHOLOGY AND [address] [place] [address] [phone] [address] T4, free (04/12/2020 10:50 AM CDT) Pathologist Sig [facility] T4, free 1.2 0.9 - 1.7 ng/dL [facility] L Specimen Performing Organization Address [facility] Phone Number [facility] DEPARTMENT OF PATHOLOGY AND [address] [place] [address] [phone] [address] Hemoglobin A1c (04/12/2020 10:50 AM CDT) Hemoglobin A1C 6.9 (H) 4.0 - 5.6 % [facility] Comment: HOSPITAL HbA1c cutoffs for diagnosing diabetes: [...] 1 diabetes. Specimen Blood Performing Organization Address City/[facility]/Zipcode Phone Number [facility] DEPARTMENT OF PATHOLOGY AND [address] [place] [phone] [facility] MEDICINE [address] [address] CBC with platelet and differential (04/12/2020 10:47 AM CDT) WBC 9.25 4.50 - 11.00 [facility]/uL HOSPITAL RBC 4.21 (L) 4.40 - 6.00 [facility] HGB 12.1 (L) 14.0 - 18.0 [facility] g/dL [facility] HCT 38.5 (L) 41.0 - 51.0 % [facility] MCV 91.4 82.0 - 100.0 [facility] MCH 28.7 27.0 - 34.0 pg [facility] MCHC 31.4 31.0 - 37.0 [facility] RDW - SD 48.7 37.0 - 55.0 fL [facility] MPV 12.2 8.8 - 13.2 fL [facility] Platelet count 193 150 - 400 k/uL [facility] Nucleated RBC 0.00 /100 WBC [facility] Neutrophils 79.0 (H) 39.0 - 69.0 % [facility] Lymphocytes 13.6 (L) 25.0 - 45.0 % [facility] Monocytes 6.5 0.0 - 10.0 % [facility] Eosinophils 0.4 0.0 - 5.0 % [facility] Basophils 0.3 0.0 - 1.0 % [facility] Immature granulocytes 0.2Comment: 0.0 - 1.0 % [facility] "Immature HOSPITAL granulocytes" (promyelocytes , myelocytes, metamyelocytes ) Specimen Blood Performing Organization Address City/[facility] Phone Number [facility] DEPARTMENT OF PATHOLOGY AND [address] [place] [phone] GENOMIC MEDICINE [facility] [address] [place] [address] ECG 12 lead (04/12/2020 9:56 AM CDT)Only the most recent of2 resultswithin the time period is included. Pathologist Sig nature Ventricular rate 108 [facility] Atrial rate 108 [facility] MD interval 216 [facility] QRSD interval 148 [...] atrial complexes are now present-Nonspecific T wave [facility] MUSE abnormality no longer eviden t in Inferior leads- Specimen Narrative Performed At This result has an attachment that is no t available. Performing Organization Address City/State/Zipcode Phone Number [facility] MUSE [address] [place] [address] after 04/14/2019 Advance Directives For more information, please contact: [phone] Type Date Recorded Patient Coordinator Cardiopulmonary Services Explanati on Advance Directives, Living Will 07/17/2012 12:22 PM and Medical Power of Launch Leader
--- OUTSIDE RECORDS SUMMARY | 2020-04-14 15:10 | XMS REPORT | Continuity of Care Document ---
:1935 Author Organization [facility] t Address [address] [place] [address] Care Team Providers Name Role Phone Asked, Pcp Primary Care Physician Unavailable Norris Hills MD Attending Clinician Neetu ZHANG Attending Clinician Suzan Doherty CRNA Attending Clinician NEETU Admitting Clinician Unavailable Payers Payer Name Policy Type Policy Number Effective Date Expiration Date S isatu AETNA xxxxxxxx 2013 [place] MEDICAREAETNA 00:00:00 Denominational MEDICARE HMO/PPO MCRxxxxxxxx 4-PresentHMO AETNA - MEDICARE xxxxxxxx [facility] - M[facility] CAREAETNA Medical [address] MEDICARE HMO POS [id number] [address] Problems Condition Condition Condition Status Onset Resolution [...] Disease Active C [facility] Cancer Cancer Disease Active Overview: [facility] prostate [facility] Diabetes Diabetes Disease Active [facility] t mellitus mellitus [facility] Arthritis Arthritis Disease Active Overview: [facility] back [facility] Allergies, Adverse Reactions, Alerts This patient has no known allergies or adverse reactions. Social History Social Habit Start Date Stop Date Quantity Comments Source History of Current smoker [facility] thodi tobacco use Sex Assigned At Alfred M ethodist Exposure to Yes Alfred Metho dist SARS-CoV-2 (event) Alcohol intake 2020-04-12 2020-04-12 Current drinker [place] [facility] 00:00:00 00:00:00 of alcohol (finding) Alcohol Comment 2020-04-12 2020-04-12 occ [facility] ethodist 00:00:00 00:00:00 Smoking Status Start Date Stop Date Source Former smoker 2020-04-12 00:00:00 2020-04-12 00:00:00 [place] Medications Ordered Filled Start Stop Current Ordering Indication Dosage Frequency Signature Comments Components Source Medication Medication Date Date Medication? Clinician (SIG) Name Name lisinopriL 2019- 2020- Yes 5mg QD Take 1 [place] (PRINIVIL) 04-14 09-05 tablet (5 Met hodi 5 mg tablet 00:00: 23:59 mg total) st 00 :00 by mouth daily for 30 days. insulin 2020-0 Yes 25U [id number] Inject 25 Alfred ASPART 8-05 [id number] Units Method i (NovoLOG) 13:12: 3D under [...] needed for moderate pain .acute pain. multivitami 2019- Yes 1{tbl} QD Take 1 [place] 8-05 tablet by Methodi (THERAGRAN) 13:12: mouth st tablet 46 daily. cholecalcif 2019-0 Yes 2000U QD Take 2,000 Alfred keven, 8-05 Units by Methodi vitamin D3, 13:12: mouth st 50 mcg 46 daily. (2,000 unit) capsule capsule tamsulosin Yes .4mg QD Take 0.4 [place] (FLOMAX) 8-05 mg by Methodi 0.4 mg 13:12: mouth st capsule 46 daily with dinner. ezetimibe-s Yes 1{tbl} QD Take 1 CH I [...] 01:42: nightly. Medical tablet 09 Center losartan 0 Yes 100mg QD Take [address] (COZAAR) 5-16 mg by [facility] - 100 MG 01:42: mouth Medical tablet 09 daily. Center insulin Yes type 2 50U QD Inject [address] glargine 5-16 diabetes Units [facility] - (LANTUS) 01:42: mellitus subcutaneo Medical 100 unit/mL 09 usly Center injection nightly Use as directed . insulin 2015-0 Yes type 2 25U Inject [address] aspart 5-16 diabetes Units [facility] - (NOVOLOG) 01:42: mellitus subcutaneo Medical 100 unit/mL 09 usly 3 Center injection (three) times daily before [...] Source Systolic blood 2020-04-13 07:36:54 110 mm[Hg] Yonatan ward Denominational pressure Diastolic blood 2020-04-13 07:36:54 54 mm[Hg] Bakari on Denominational pressure Heart rate 2020-04-13 07:36:54 80 /min Tima Chakraborty Body temperature 2020-04-13 07:36:54 36.22 Katie [place] Respiratory rate 2020-04-13 07:36:54 18 /min Rosibel ton [facility] Oxygen saturation in 2020-04-13 07:36:54 99 /min [...] METABOLIC PANEL 2020-04-13 06:00:00 Carter Sepulveda n Denominational MAGNESIUM LEVEL 2020-04-13 06:00:00 Carter Sepulveda Meth odist PHOSPHORUS LEVEL 2020-04-13 06:00:00 Carter Sepulveda Met hodist LIPID PANEL 2020-04-13 06:00:00 Carter Sepulveda Meth odist ESTIMATED GFR 2020-04-13 06:00:00 Carter Sepulveda Meth odist POC GLUCOSE 2020-04-12 21:25:00 Carter Sepulveda Meth odist POC GLUCOSE 2020-04-12 18:15:00 Carter Sepulveda Meth odist US RENAL DOPPLER 2020-04-12 18:00:00 Manas Hudson Met hodist US RENAL 2020-04-12 17:30:00 Manas Hudson Meth odist POC GLUCOSE 2020-04-12 14:58:00 Carter Sepulveda Meth odist POC GLUCOSE 2020-04-12 13:22:00 Carter Sepulveda Meth odist HEMOGLOBIN A1C 2020-04-12 10:50:00 Carter Sepulveda Meth odist BASIC METABOLIC PANEL 2020-04-12 10:50:00 Carter Sepulveda n Denominational MAGNESIUM LEVEL 2020-04-12 10:50:00 Carter Sepulveda Meth odist PHOSPHORUS LEVEL 2020-04-12 10:50:00 Carter Sepulveda Met hodist THYROID STIMULATING 2020-04-12 10:50:00 Carter Sepulveda Denominational HORMONE ESTIMATED GFR 2020-04-12 10:50:00 Carter Sepulveda Meth odist T4, FREE 2020-04-12 10:50:00 NeetuNikabj Alfred Meth odist HC COMPLETE BLD COUNT 2020-04-12 10:47:00 Carter Sepulveda Denominational W/AUTO DIFF ECG 12-LEAD 2020-04-12 09:56:32 Carter Sepulveda Meth odist ECG 12-LEAD 2020-04-12 09:53:43 Carter Sepulveda Meth odist POC GLUCOSE 2020-04-12 09:23:00 Jeana Irina ChunJane Alfred Meth odist SARS-COV2/RT-PCR ([facility] 2020-01-23 15:00:00 [facility] Plan of Care Planned Activity Planned Date Details Comments Source Future Scheduled 2020-04-09 INFLUENZA VACCINE [place] [facility] Test 00:00:00 [code = INFLUENZA VACCINE] Future Scheduled 2001 65+ PNEUMOCOCCAL [place] [facility] Test 00:00:00 VACCINE (1 of 2 - PCV13) [code = 65+ PNEUMOCOCCAL VACCINE (1 of 2 - PCV13)] Future Scheduled 1986 SHINGLES VACCINES (#1) [place] [facility] Test 00:00:00 [code = SHINGLES VACCINES (#1)] Future Scheduled 1946 DIABETIC FOOT EXAM [place] [facility] Test 00:00:00 [code = DIABETIC FOOT EXAM] Future Scheduled 1935 DIABETIC RETINAL EYE [place] st[place] Denominational Test 00:00:00 EXAM [code = DIABETIC RETINAL EYE EXAM] Encounters Start End Encounter Admission Attending Care Care Encounter Source Date/Time Date/Time Type Type Clinicians Facility Department ID 2020-04-12 2020-04-13 [facility] [id number] Alfred 00:00:00 00:00:00 CARTER [address] 2018-05-15 2018-05-15 [facility] [id number] [address] 14:[facility]00 14[facility]00[facility] Clinics 2018-05-08 2018-05-08 [facility] [id number] 15:00[facility]00 15:00[facility] Clinics 2018-05-01 2018-05-01 [facility] [id number] 14:30:00 14:30:00 [facility] 2018-04-21 2018-04-21 [facility] [id number] 13:22:00 13:22:00 [facility] ent [facility] 2018-04-02 2018-04-02 [facility] [id number] 10:30:00 10:30:00 [facility] Results Test Description Test Time Test Comments Results Result Comments Source POC glucose 2020-04-13 07:44:07 Test Item Value Reference Range Interpretation Comme [facility] POC glucose (test code = 177 mg/dL 65-99 H Ope rator Name: Andrew Leung [id number]) EDevice ID: [id number]: [facility] Notified delivery consultant Interpretation (test code = Abnormal 86441-3) [place] [facility] metabolic [id number] 07:34:36 Test Item Value Reference Range Interpretation Comments Sodium (test code = 139 135- 148 mEq/L 2951-2) Potassium (test code = 3.9 3.5- 5.0 mEq/L 2823-3) Chloride (test code = 102 98- 112 mEq/L 2074-0) CO2 (test code = 2027-9) 21 24- 31 mEq/L L Anion gap (test code = 16@ANIO 7- 15 mEq/L H 39451-9) BUN (test code = 3094-0) 28 mg/dL 8-23 H Creatinine (test code = 2.15 mg/dL 0.7-1.2 H CREA T results 2160-0) called to and r ead back by _HELENA SZYMANSKI/JTrupti (name/location) at _ 04/13/2020 07:34 _(date/ti me) by _RA_. Glucose (test code = 198 mg/dL 65-99 H 2345-7) Calcium (test code = 9.2 mg/dL 8.8-10.2 48828-6) Lab Interpretation (test Abnormal code = 71721-6) [place] [facility] [id number] 07:34:36 Test Item Value Reference Interpretation Comments Range Cholesterol (test 126 mg/dL <200 code = 2093-3) Triglycerides (test 133 mg/dL <150 code = 2571-8) HDL cholesterol 40 mg/dL >40 (test code = 5-9) LDL cholesterol 71 mg/dL <100 Result obtai mikal by direct (test code = 2089-1) LDL mike surement Lipid panel SeeBelow Total Cholester ol (mg/dL) interpretation (test < 200 code = 68274-0) Desirable 200-239 Borderline -high >=240 Hi gh [...] personswith high triglycerides ( >=200 mg/dL) Tima [facility]esium [id number] 07:34:36 Test Item Value Reference Range Interpretation Comments Magnesium (test code = 86978-0) 2.0 mg/dL 1.6-2.4 [place] MethodistEstimated [id number] 07:34:36 Test Item Value Reference Range Interpretation Comments Estimated GFR (test 27 mL/min/1.73 m2 Melly white Units code = 5488) InterpretationG 1 >=90 Opal l or highG2 60-89 Mildly decrease dG3a 45-59 Mil dly to moderately decr pdvqpO3h 30-44 Moderately to s everely decreasedG4 15-29 Severe ly decreasedG5 <15 Kidney arlin lureThe eGFR was calcul ated using the [facility] Kidney Disease Epidemiology Collaboration ( CKD-EPI) equation. Interpretation is based on recommendati ons of the National Ki dney Foundation-Kidn ey Disease Outcome s Quality Initiat john (NKF-KDOQI) pub lished in 2013. Lab Interpretation Abnormal (test code = 73694-2) [facility] [id number] 07:18:50 Test Item Value Reference Range Interpretation Comments Phosphorus (test code = 2777-1) 3.9 mg/dL 2.4-4.5 [facility] [id number] 06:32:49 Test Item Value Reference Range Interpretation Comments WBC (test code = 14385-4) 10.84 4.50- 11.00 k/uL RBC (test code = 15233-1) 3.69 m/uL 4.4-6 L HGB (test code = 718-7) 10.6 g/dL 14-18 L HCT (test code = 4544-3) 34.7 % 41-51 L MCV (test code = 787-2) 94.0 fL 82-100 MCH (test code = 785-6) 28.7 pg 27-34 MCHC (test code = 786-4) 30.5 g/dL 31-37 L RDW - SD (test code = 65374-3) 51.8 fL 37-55 MPV (test code = 69399-9) 11.8 fL 8.8-13.2 Platelet count (test code = 202 150- 400 k/uL 61820-0) Nucleated RBC (test code = 0.00 /100 WBC 35404-3) Lab Interpretation (test code = Abnormal 22913-8) [facility] 12 [id number] 00:00:20 Test Item Value Reference Range Interpretation Comments Ventricular rate (test 108 code = 253) Atrial rate (test code 108 = 255) KS interval (test code 216 = 266) QRSD [...] abnormality no longer evident in Inferior leads- Alfred Cozy [id number] 19:14:23Hm Interface, Radiology Results - 04/12/2020 7:17 [...] therefore post void residual could not be evaluated.[id number] MethodCytoVale Renal [id number] 18:55:28Hm Interface, Radiology Results Incoming - 04/12/2020 [...] measures 0.67- 0.71.IMPRESSION: Normal renal Doppler ultrasound examination.[id number] MethodistT4, [id number] 12:56:51 Test Item Value Reference Range Interpretation Comments T4, free (test code = 3024-7) 1.2 ng/dL 0.9-1.7 [place] [facility] centerThyroid stimulating [id number] 12:56:51 Test Item Value Reference Range Interpretation Comments TSH (test code = 3016-3) 0.78 0.27- 4.20 uIU/mL [place] MethodistHemoglobin [id number] 12:35:56 Test Item Value Reference Range Interpretation Comments Hemoglobin A1C (test 6.9 % 4-5.6 H HbA1c c utoffs for code = 97950-2) diagnosing diabetes:4.0% - 5.6% = normal5.7% - 6.4% = increased risk for diabetes (prediabetes)9> =6.5% = xtdlvbkc3Tukz s for glycemic contro l (ADA 2016)< 7.0% Ta rget for non adults with jose ramon betes. More or less stringent targe ts may be appropriate for individual sita ents. <7.5% Target for Children and adolescents wit h type 1 diabetes. Lab Interpretation (test Abnormal code = 56637-6) [facility] with platelet and [id number] 12:23:52 Test Item Value Reference Range Interpretation Comments WBC (test code = 97744-8) 9.25 4.50- 11.00 k/uL RBC (test code = 25350-8) 4.21 m/uL 4.4-6 L HGB (test code = 718-7) 12.1 g/dL 14-18 L HCT (test code = 4544-3) 38.5 % 41-51 L MCV (test code = 787-2) 91.4 fL 82-100 MCH (test code = 785-6) 28.7 pg 27-34 MCHC (test code = 786-4) 31.4 g/dL 31-37 RDW - SD (test code = 48.7 fL 37-55 39693-0) MPV (test code = 38568-0) 12.2 fL 8.8-13.2 Platelet count (test code 193 150- 400 k/uL = 58228-1) Nucleated RBC (test code 0.00 /100 WBC = 70971-5) Neutrophils (test code = 79.0 % 39-69 H 78119-1) Lymphocytes (test code = 13.6 % 25-45 L 20851-9) Monocytes (test code = 6.5 % 0-10 21262-3) Eosinophils (test code = 0.4 % 0-5 85915-5) Basophils (test code = 0.3 % 0-1 24386-6) Immature granulocytes 0.2 % 0-1 "Immat ure (test code = 74116-2) granul ocytes" (promyelocytes, myelocytes, metamyelocytes) Lab Interpretation (test Abnormal code = 80417-1) Tima SandovalARS-CoV2/RT-PCR ([facility] & Ref Labs)2020-01-23 21:06:00 Test Item Value Reference Range Interpretation Comments SARS-COV2/RT-PCR (test Detected Not Detected, AA code = 91874-4) Negative SARS-COV-2 PERFORMING [facility] (test code = 01470-4) BETTE (test code = BETTE) Results are [...] the Act. Fact Sheet for Healthcare Providers:https://www. Krux/Documents/ Xpert%20Xpress%20SARS% 20CoV-2/Fact%20Sheets/ 302-3802%97ORYI-IEN-0% 20HEALTHCARE%20PROVIDE RS%20FACT%20SHEET.pdf Fact Sheet for Healthcare Patients:https://www.Salesfusion/Documents/X pert%20Xpress%20SARS%2 0CoV-2/Fact%20Sheets/3 02-3801%32YEWC-LFW-7%2 0PATIENT%20FACT%20SHEE T.pdf Performing Laboratory:[facility] [place] [address].[place] [address] Lab Interpretation Abnormal (test code = 23914-6) [facility] & REF LABS)2020-01-23 21:06:00 Test Item Value Reference Range Interpretation Comments SARS-COV2/RT-PCR (test code = Detected Not Detected, Negative A A 6659635) SARS-COV-2 PERFORMING LAB [facility] (test code = 6074520) Results are for the detection of SARS-CoV-2 [...] copies/mL.This SARS CoV-2 test is a rapid, gesm-hufyGU-AGZ test intended for the qualitative detection of [...] 564(g) of the Act.Fact Sheet for Healthcare Providers:https://www.Krux/ Documents/Xpert%20Xpress%20SARS%20CoV-2/Fact%20Sheets/3023802%43ISVH-MQK-1%20HE ALTHCARE%20PROVIDERS%20FACT%20SHEET.pdfFact Sheet for Healthcare Patients:https://www.Krux/Documents/Xpert%20Xpress %20SARS%20CoV-2/Fact%20Sheets/3023801%61ULIP-JAO-4%20PATIENT%20FACT%20SHEET.pdf Performing Laboratory:[facility] [place] [address]
[2020-04-14] MEDS ORDERED: D50W 25 GM/50 ML SYRINGE/VIAL IV ONE ×2 (15:35→17:01)
[2020-04-14 15:39] LABS: Absolute Lymphocytes (CBC) 2.2 K/uL (0.7-4.9); Basophils % 0.5 % (0-1.3); Lymphocytes % 20.1 % (15.3-44.8); MPV 10.1 fL (7.6-11.3); RBC Red Blood Cell Count 3.64 M/uL (4.33-5.43)
[2020-04-14 15:57] LABS: Protime INR 1.22
--- NOTE | 2020-04-14 16:11 | RAD REPORT ---
EXAM DESCRIPTION: CT - Head Brain Wo Cont - 04/14/2020 3:58 pm CLINICAL HISTORY: TRAUMA Headache, trauma as, head injury is COMPARISON: Head Brain Wo Cont dated 11/14/2018; HEAD BRAIN W O CONTRAST dated 01/23/2009 TECHNIQUE: All CT scans are performed using dose optimization technique as appropriate and may inclu de automated exposure control or mA/KV adjustment according to patient size. FINDINGS: No intracranial hemorrhage, hydrocephalus or extra-axial fluid collection.Moderate general ized brain atrophy is present with moderate periventricular and deep white matter chronic microvascul ar ischemic changes.No areas of brain edema or evidence of midline shift. The paranasal sinuses and mastoids are clear. The calvarium is intact. IMPRESSION: No acute intracranial abnormality.
[2020-04-14 16:30] LABS: ALT/SGPT 15 U/L (12-78); AST/SGOT 21 U/L (15-37); Alkaline Phosphatase 41 U/L (45-117); BUN Blood Urea Nitrogen 52 mg/dL (7-18); Bicarbonate 24 mmol/L (21-32); Bilirubin Direct 0.1 mg/dL (0-0.2); Bilirubin Total 0.5 mg/dL (0.2-1.0); CKMB Creatine Kinase MB 2.2 ng/mL (0.3-3.6); Creatine Phosphokinase 243 U/L (39-308); Lipase 87 U/L (73-393); Magnesium 2.3 mg/dL (1.8-2.4); Potassium 3.4 mmol/L (3.5-5.1); Protein, Total 6.9 g/dL (6.4-8.2); Sodium Level 143 mmol/L (136-145); Troponin (Emerg Dept Use Only) < 0.02 ng/mL (0.0-0.045)
[2020-04-14 16:34] LABS: Glucose Level 44 mg/dL (74-106)
--- NOTE | 2020-04-14 17:12 | ER ---
Nurse's Notes [facility] Name: Gonzalo Waldron Age: 84 yrs Sex: Male : 1935 Arrival Date: 04/14/2020 Time: 14:57 Bed 23 Private MD: Diagnosis: Hypoglycemia, unspecified;Syncope and collapse Presentation: 04/14 14:57 Chief complaint: Patient states: "I feel fine, just a little sleepy because I was here vc so late this morning." EMS states: "Patient was here this morning for a high blood pressure, he was given lisinopril and a prescription for it to take home, did not realize he had already taken one and gave him a second pill, patient passed out when he got up, fell and hit his head. When we arrived we did orthostatics and his heart rate went from 102 to 120 when he sat up, he turned pale and almost passed out. Blood pressure was 90/47, EKG in route showed sinus tach with a first degree and left BBB when he sat up he started throwing PVCs, on arrival we did a second EKG which showed a-fib, patient has no history of a-fib.". Coronavirus screen: Client denies travel out of the [place] in the last 14 days. Client reports previous positive COVID test result. Patient was postive in January and had two negative tests in February. Ebola Screen: No symptoms or risks identified at this time. Initial Sepsis Screen: Does the patient meet any 2 criteria? Systolic BP < 90 mmHg. Mean Arterial Pressure (MAP) < 65. Does the patient have a suspected source of infection? No. Patient's initial sepsis screen is negative. Risk Assessment: Do you want to hurt yourself or someone else? Patient reports no desire to harm self or others. Onset of symptoms was April 14, 2020 at 13:30. 14:57 Method Of Arrival: EMS: [facility] vc 14:57 Acuity: MICAH 2 vc 14:57 Care prior to arrival: Medication(s) given: Normal saline infusion, 400 ML IV vc initiated. 18 GA, in the left antecubital area, Glucose check: 88. 15:15 Chief complaint: Spouse and/or significant other states: " Went to [facility] Saturday vc morning because he was supposed to have eye surgery on his detached retina, his blood pressure was too high so they admitted him, he was sent home on Saturday morning with a new prescription for Lisinopril 5mg. Last night he fell at home and we were in your ER until 4 am, he fell again today that's why I called EMS.". Triage Assessment: 15:00 General: Appears in no apparent distress. Behavior is cooperative, drowsy. Pain: vc Complains of pain in back. Neuro: Reports weakness "very tired". Historical: - Allergies: 15:06 Tape; vc - Home Meds: 15:06 atorvastatin 40 mg Oral tab 1 tab once daily [Active]; Lipitor 40 mg Oral tab 1 tab vc once daily [Active]; 15:43 Novolog 25 units Sub-Q three times a day [Active]; vc 15:45 lisinopril 5 mg Oral tab 1 tab once daily for Hypertension [Active]; Vitamin D Oral vc [Active]; acetaminophen-codeine 300-30 mg Oral tab Takes at bedtime for Pain [Active]; gabapentin 300 mg oral cap 1 cap twice a day [Active]; Lantus 100 unit/mL Sub-Q soln for Type 2 Diabetes Mellitus [Active]; lantoprost nightly [Active]; Singulair Oral [Active]; multivitamin oral oral [Active]; Flomax 0.4 mg Oral cp24 1 cap night [Active]; - PMHx: 15:06 COPD; Diabetes - NIDDM; Hyperlipidemia; Hypertension; Prostate Cancer; vc 15:45 Back Cancer; Retinal Detachment; vc - Immunization history:: Adult Immunizations up to date. - Social history:: Smoking status: Patient/guardian denies using tobacco, the patient reports quitting approximately 11 years ago. Screenin:00 Abuse screen: Denies threats or abuse. Nutritional screening: No deficits noted. vc Tuberculosis screening: No symptoms or risk factors identified. Fall Risk Fall in past 12 months (25 points). Secondary diagnosis (15 points) impaired mobility, IV access (20 points). Ambulatory Aid- None/Bed Rest/Nurse Assist (0 pts). Gait- Weak (10 pts.). Mental Status- Oriented to own ability (0 pts). Total Ruiz Fall Scale indicates High Risk Score (45 or more points). Fall prevention measures have been instituted. Side Rails Up X 2 Frequent Obs/Assessments Occuring. Assessment: 15:00 Neuro: Level of Consciousness is lethargic, Oriented to person, place, time, situation. vc Cardiovascular: Reports diaphoresis, Denies chest pain, Rhythm is atrial fibrillation With PVC's. 15:00 General: Appears in no apparent distress. obese, Behavior is drowsy. Pain: Complains of vc pain in back. Respiratory: Airway is patent Respiratory effort is even, unlabored, Respiratory pattern is regular, symmetrical. GI: No signs and/or symptoms were reported involving the gastrointestinal system. : No signs and/or symptoms were reported regarding the genitourinary system. Derm: Skin is diaphoretic. Musculoskeletal: Circulation, motion, and sensation intact. 16:00 Reassessment: Patient appears in no apparent distress at this time. Patient and/or vc family updated on plan of care and expected duration. Pain level reassessed. Patient is no longer diaphoretic, continues to be lethargic. 16:00 Reassessment: Patient appears in no apparent distress at this time. Patient and/or vc family updated on plan of care and expected duration. Pain level reassessed. Patient still lethargic. Vital Signs: 14:57 BP 92 / 32; Pulse 79; Resp 20; Temp 98.0; Pulse Ox 96% on R/A; vc 15:10 BP 112 / 48 RA Supine (auto/lg); Pulse 74; Resp 25 S; Pulse Ox 96% on R/A; jp3 15:13 BP 113 / 41 RA Sitting (auto/lg); Pulse 78; Resp 28; Pulse Ox 91% on R/A; jp3 16:00 BP 121 / 54; Pulse 72; Resp 12; Pulse Ox 100% on 2 lpm NC; vc 16:30 BP 106 / 62; Pulse 88; Resp 18; Pulse Ox 100% on 2 lpm NC; vc 17:00 BP 140 / 87; Pulse 93; Resp 13; Pulse Ox 99% on 2 lpm NC; vc 19:00 BP 110 / 50 RA Supine (auto/lg); Pulse 96; Pulse Ox 99% on 2 lpm NC; jp3 19:03 BP 85 / 52 RA Sitting (auto/lg); Pulse 100; Pulse Ox 100% on 2 lpm NC; jp3 19:08 BP 95 / 53; Pulse 104; Pulse Ox 99% on 2 lpm NC; jp3 ED Course: 14:57 Patient arrived in ED. vc 15:02 Sofy Joya FNP-C is [facility]. kb 15:02 Vadim Grant MD is Attending Physician. kb 15:05 Triage completed. vc 15:09 Rachelle Zhang, RN is Primary Nurse. vc 15:10 Patient has correct armband on for positive identification. Bed in low position. Call jp3 light in reach. Side rails up X 1. Side rails up X2. Verbal reassurance given. quality assurance monitor chassis on. Pulse ox on. NIBP on. 15:10 Arm band placed on. vc 15:20 EKG done, by ED staff, reviewed by Sofy LONGO. Maintain EMS IV. Dressing jp3 intact. Good blood return noted. Site clean \\T\\ dry. Gauge \\T\\ site: 18 gauge in LAC. Oxygen administration via nasal cannula \\T\\ 2L/min Response to oxygen therapy: symptoms improved. 17:12 Izaiah Segal MD is Hospitalizing Provider. kb 20:00 No provider procedures requiring assistance completed. Patient admitted, IV remains in vc place. Administered Medications: 15:45 Drug: D50W 50 ml Route: IVP; Site: left antecubital; vc 17:22 Follow up: Response: No adverse reaction; Blood sugar is unchanged vc 17:00 Drug: D50W 50 ml Route: IVP; Site: left antecubital; vc 18:00 Follow up: Response: No adverse reaction; Blood sugar is elevated vc Point of Care Testing: Blood Glucose: 15:44 Blood Glucose: 42 mg/dL; vc Ranges: Outcome: 17:12 Decision to Hospitalize by Provider. kb 20:00 Admitted to Med/surg accompanied by tech, via stretcher, room 231. vc 20:00 Condition: good 20:00 Instructed on the need for admit, Demonstrated understanding of instructions. vc 20:01 Patient left the ED. vc Signatures: Sofy Joya FNP-C FNP-Ckb Pisarski, Jacob jp3 Rachelle Zhang, RN RN vc Corrections: (The following items were deleted from the chart) 17:20 15:06 Home Meds: Nataly-D 12 Hour 60-120 mg Oral Tb12 daily; vc vc
--- NOTE | 2020-04-14 17:13 | EDPHYS ---
Physician Documentation [facility] Name: Gonzalo Waldron Age: 84 yrs Sex: Male : 1935 Arrival Date: 04/14/2020 Time: 14:57 Bed 23 Private MD: ED Physician Vadim Grant HPI: 04/14 15:31 This 84 yrs old Male presents to ER via EMS with complaints of Syncope, Fall kb Injury. 15:31 The patient has experienced syncope, lost consciousness. Onset: The symptoms/episode kb began/occurred just prior to arrival. Duration: This was a single episode. Context: the episode(s) was witnessed, by a significant other, , occurred at home, occurred while the patient was sitting, Just prior to the episode the patient experienced fatigue. Associated injury: Head/face: right side of forehead, abrasion. Associated signs and symptoms: Pertinent positives: weakness, Pertinent negatives: abdominal pain, agitation, ataxia, blurred vision, chest pain, combativeness, confusion, diaphoresis, diarrhea, dizziness, headache, lightheadedness, nausea, numbness, palpitations, seizure, shortness of breath, tingling, vertigo, vomiting. Current symptoms: decreased level of consciousness, is arousable but tired. The patient has not experienced similar symptoms in the past. The patient has been recently seen at the [facility] Emergency Department, yesterday, for similar complaints labs were performed, X-rays were performed. Pt reports he was started on lisinopril recently for HTN and he accidentally took 2 today. States he has been tired and weak, but believes it is due to staying here last night until late. Only complaint at this time is dry mouth. Denies any pain. Able to move all extremities. States everything was fine this morning, then he sat in his chair, passed out and fell to the floor. Reports the fall woke him up.. Historical: - Allergies: 15:06 Tape; vc - Home Meds: 15:06 atorvastatin 40 mg Oral tab 1 tab once daily [Active]; Lipitor 40 mg Oral tab 1 tab vc once daily [Active]; 15:43 Novolog 25 units Sub-Q three times a day [Active]; vc 15:45 lisinopril 5 mg Oral tab 1 tab once daily for Hypertension [Active]; Vitamin D Oral vc [Active]; acetaminophen-codeine 300-30 mg Oral tab Takes at bedtime for Pain [Active]; gabapentin 300 mg oral cap 1 cap twice a day [Active]; Lantus 100 unit/mL Sub-Q soln for Type 2 Diabetes Mellitus [Active]; lantoprost nightly [Active]; Singulair Oral [Active]; multivitamin oral oral [Active]; Flomax 0.4 mg Oral cp24 1 cap night [Active]; - PMHx: 15:06 COPD; Diabetes - NIDDM; Hyperlipidemia; Hypertension; Prostate Cancer; vc 15:45 Back Cancer; Retinal Detachment; vc - Immunization history:: Adult Immunizations up to date. - Social history:: Smoking status: Patient/guardian denies using tobacco, the patient reports quitting approximately 11 years ago. ROS: 15:29 Constitutional: Negative for fever, chills, and weight loss, Eyes: Negative for injury, kb pain, redness, and discharge, ENT: Negative for injury, pain, and discharge, Neck: Negative for injury, pain, and swelling, Cardiovascular: Negative for chest pain, palpitations, and edema, Respiratory: Negative for shortness of breath, cough, wheezing, and pleuritic chest pain, Abdomen/GI: Negative for abdominal pain, nausea, vomiting, diarrhea, and constipation, MS/Extremity: Negative for injury and deformity, Skin: Negative for injury, rash, and discoloration. 15:29 Neuro: Positive for syncope, fatigue. Exam: 15:29 Constitutional: This is a well developed, well nourished patient who is awake, alert, kb and in no acute distress. Eyes: Pupils equal round and reactive to light, extra-ocular motions intact. Lids and lashes normal. Conjunctiva and sclera are non-icteric and not injected. Cornea within normal limits. Periorbital areas with no swelling, redness, or edema. Neck: Trachea midline, no thyromegaly or masses palpated, and no cervical lymphadenopathy. Supple, full range of motion without nuchal rigidity, or vertebral point tenderness. No Meningismus. Chest/axilla: Normal chest wall appearance and motion. Nontender with no deformity. No lesions are appreciated. Cardiovascular: Regular rate and rhythm with a normal S1 and S2. No gallops, murmurs, or rubs. Normal PMI, no JVD. No pulse deficits. Respiratory: Lungs have equal breath sounds bilaterally, clear to auscultation and percussion. No rales, rhonchi or wheezes noted. No increased work of breathing, no retractions or nasal flaring. Abdomen/GI: Soft, non-tender, with normal bowel sounds. No distension or tympany. No guarding or rebound. No evidence of tenderness throughout. Skin: Warm, dry with normal turgor. Normal color with no rashes, no lesions, and no evidence of cellulitis. MS/ Extremity: Pulses equal, no cyanosis. Neurovascular intact. Full, normal range of motion. Neuro: Awake and alert, GCS 15, oriented to person, place, time, and situation. Cranial nerves II-XII grossly intact. Motor strength 5/5 in all extremities. Sensory grossly intact. Cerebellar exam normal. Normal gait. 15:29 Head/face: Noted is no obvious of injury or deformity except abrasion(s), that are mild, of the right side of forehead. Vital Signs: 14:57 BP 92 / 32; Pulse 79; Resp 20; Temp 98.0; Pulse Ox 96% on R/A; vc 15:10 BP 112 / 48 RA Supine (auto/lg); Pulse 74; Resp 25 S; Pulse Ox 96% on R/A; jp3 15:13 BP 113 / 41 RA Sitting (auto/lg); Pulse 78; Resp 28; Pulse Ox 91% on R/A; jp3 16:00 BP 121 / 54; Pulse 72; Resp 12; Pulse Ox 100% on 2 lpm NC; vc 16:30 BP 106 / 62; Pulse 88; Resp 18; Pulse Ox 100% on 2 lpm NC; vc 17:00 BP 140 / 87; Pulse 93; Resp 13; Pulse Ox 99% on 2 lpm NC; vc 19:00 BP 110 / 50 RA Supine (auto/lg); Pulse 96; Pulse Ox 99% on 2 lpm NC; jp3 19:03 BP 85 / 52 RA Sitting (auto/lg); Pulse 100; Pulse Ox 100% on 2 lpm NC; jp3 19:08 BP 95 / 53; Pulse 104; Pulse Ox 99% on 2 lpm NC; jp3 MDM: 15:02 Patient medically screened. kb 15:28 Data reviewed: vital signs, nurses notes. Data interpreted: Pulse oximetry: on room air kb is 95 %. Interpretation: normal. ED course: Pt diaphoretic and drowsy. BGL ordered and is 42. Will give an amp of D50 and reevaluate. 15:55 ED course: reports pt only received one lisinopril 5mg this morning. Was started kb on lisinopril at [facility] on Saturday. States pt went to there to have eye surgery for detached retina and his BP was too high to complete the surgery. Pt was admitted there and sent home on lisinopril. States he was weak yesterday and fell which is what made him come to the ER last night. . 17:11 Counseling: I had a detailed discussion with the patient and/or guardian regarding: the kb historical points, exam findings, and any diagnostic results supporting the discharge/admit diagnosis, lab results, radiology results, the need for further work-up and treatment in the hospital. Physician consultation: Izaiah Segal MD was contacted at 17:11, regarding admission, to the telemetry unit. patient's condition, and will see patient. 04/14 15:13 Order name: Basic Metabolic Panel 04/14 15:13 Order name: CBC with Diff 04/14 15:13 Order name: Ckmb 04/14 15:13 Order name: CPK 04/14 15:13 Order name: Hepatic Function 04/14 15:13 Order name: Lipase 04/14 15:13 Order name: Magnesium 04/14 15:13 Order name: Protime (+inr) 04/14 15:13 Order name: Ptt, Activated 04/14 15:13 Order name: Troponin (emerg Dept Use Only) 04/14 15:45 Order name: Glucose, Ancillary Testing; Complete Time: 15:48 EDMS 04/14 15:53 Order name: CBC with Automated Diff; Complete Time: 15:55 EDMS 04/14 16:06 Order name: Protime (+INR); Complete Time: 16:11 EDMS 04/14 16:06 Order name: PTT, Activated Partial Thromb; Complete Time: 16:11 EDMS 04/14 15:08 Order name: CT Head Brain wo Cont kb 04/14 15:08 Order name: Orthostatics; Complete Time: 15:53 kb 04/14 15:13 Order name: EKG; Complete Time: 15:14 kb 04/14 16:13 Order name: CT; Complete Time: 16:14 EDMS 04/14 16:35 Order name: Basic Metabolic Panel; Complete Time: 16:37 EDMS 04/14 16:35 Order name: Liver (Hepatic) Function; Complete Time: 16:37 EDMS 04/14 16:35 Order name: Creatine Phosphokinase; Complete Time: 16:37 EDMS 04/14 16:35 Order name: CKMB Creatine Kinase MB; Complete Time: 16:37 EDMS 04/14 16:35 Order name: Troponin (Emerg Dept Use Only); Complete Time: 16:37 EDMS 04/14 16:35 Order name: Magnesium; Complete Time: 16:37 EDMS 04/14 16:35 Order name: Lipase; Complete Time: 16:37 EDMS 04/14 16:52 Order name: Diet Ada 1800 Vicente; Complete Time: 16:53 bd 04/14 17:02 Order name: Glucose, Ancillary Testing; Complete Time: 17:03 EDMS 04/14 18:32 Order name: Glucose, Ancillary Testing; Complete Time: 18:33 EDMS 04/14 15:13 Order name: Cardiac monitoring; Complete Time: 15:53 kb 04/14 15:13 Order name: EKG - Nurse/Tech; Complete Time: 15:53 kb 04/14 15:13 Order name: IV Saline Lock; Complete Time: 15:53 kb 04/14 15:13 Order name: Labs collected and sent; Complete Time: 15:53 kb 04/14 15:13 Order name: NPO; Complete Time: 15:53 kb 04/14 15:13 Order name: O2 Per Protocol; Complete Time: 15:53 kb 04/14 15:13 Order name: O2 Sat Monitoring; Complete Time: 15:53 kb Administered Medications: 15:45 Drug: D50W 50 ml Route: IVP; Site: left antecubital; vc 17:22 Follow up: Response: No adverse reaction; Blood sugar is unchanged vc 17:00 Drug: D50W 50 ml Route: IVP; Site: left antecubital; vc 18:00 Follow up: Response: No adverse reaction; Blood sugar is elevated vc Point of Care Testing: Blood Glucose: 15:44 Blood Glucose: 42 mg/dL; vc Ranges: Critical Glucose Levels:Adult <50 mg/dl or >400 mg/dl <40 mg/dl or >180 mg/dl Disposition: 04/15 07:56 Co-signature as Attending Physician, Vadim Grant MD I agree with the assessment and kdr plan of care. Disposition: 04/14/20 17:12 Hospitalization ordered by Izaiah Segal for Observation. Preliminary diagnosis are Hypoglycemia, unspecified, Syncope and collapse. - Bed requested for Telemetry/MedSurg (observation). - Status is Observation. vc - Condition is Stable. - Problem is new. - Symptoms have improved. Signatures: Dispatcher [employer] EDMS Sofy Joya, SKIN INSTALLER-C SKIN INSTALLER-Ckb Filomena Chanel Kevin, MD MD kdr Rachelle Zhang RN RN vc Corrections: (The following items were deleted from the chart) 04/14 17:20 15:06 Home Meds: Nataly-D 12 Hour 60-120 mg Oral Tb12 daily; vc vc 18:46 17:12 Hospitalization Ordered by Izaiah Segal MD for Observation. Preliminary diagnosis bd is Hypoglycemia, unspecified; Syncope and collapse. Bed requested for Telemetry/MedSurg (observation). Status is Observation. Condition is Stable. Problem is new. Symptoms have improved. kb 20:01 18:46 04/14/2020 17:12 Hospitalization Ordered by Izaiah Segal MD for Observation. vc Preliminary diagnosis is Hypoglycemia, unspecified; Syncope and collapse. Bed requested for Telemetry/MedSurg (observation). Status is Observation. Condition is Stable. Problem is new. Symptoms have improved. bd
[2020-04-14] MEDS ORDERED: CODEINE 30MG/APAP 300MG TAB PO PRN (21:35)
[2020-04-14] MEDS: NA CHLORIDE 0.9% 1,000 ML IV SCH (23:05)
[2020-04-15 03:18] VITALS: BMI 41.5
[2020-04-15 04:35] LABS: Absolute Lymphocytes (CBC) 1.5 K/uL (0.7-4.9); Basophils % 0.4 % (0-1.3); Hematocrit 28.8 % (39.6-49.0); Lymphocytes % 18.2 % (15.3-44.8); MPV 10.4 fL (7.6-11.3); RBC Red Blood Cell Count 3.25 M/uL (4.33-5.43)
[2020-04-15 04:44] LABS: Potassium 3.7 mmol/L (3.5-5.1)
[2020-04-15] MEDS: NA CHLORIDE 0.9% 1,000 ML IV SCH (07:57)
[2020-04-15] MEDS: POLYETHYL GLY 3350 17 GM/DOSE PO SCH ×2 (08:33→08:34)
[2020-04-15] MEDS ORDERED: TAMSULOSIN 0.4 MG SR CAP PO SCH (09:00)
[2020-04-15] MEDS ORDERED: FENOFIBRATE 160 MG TAB PO SCH (09:00)
[2020-04-15 09:43] VITALS: O2SAT 98
[2020-04-15 09:45] LABS: MPV 10.4 fL (7.6-11.3)
[2020-04-15 10:23] LABS: Platelet Estimate ADEQ
--- NOTE | 2020-04-15 11:06 | P.SSS ---
Patient History Date of Service: 04/15/20 Reason for admission: LOW BP, LOW GLUCOSE. History of Present Illness: MR. EMERY IS MORBIDLY OBESE GM WITH METASTATIC PROSTATE CANCER, CKD, DM, WHO WENT FOR EYE SURGERY, HIS BP WS HIGH SO THEY PUT HIM ON SMALL DOSE OF LISINOPRIL. IN ADDITION TO HIS OTHER MEDS, HIS BP DROPPED ,HE BECAME WEAK, HE CAITIE TO ER ALSO HAD LOW GLUCOSE HE EATS A LOT BUT ALSO TAKES A LOT OF INSULIN. HE HAS LOST WEIGHT I HAVE ASKED THEM TO LOSE WEIGHT FOR LONG TIME. HE WILL NEED LESS INSULIN NOW. WEIGHT CONTROL WILL MAKE HIM LESS INSULIN RESISTANT. HE ALSO HAS NORMAL BP NOW AND HE IS STABLE TO GO HOME. Allergies No Known Allergies Allergy (Verified 04/14/20 21:15) Home Medications: Atorvastatin Calcium [Lipitor] 40 mg PO BEDTIME 01/22/16 Fenofibrate [Tricor*] 145 mg PO DAILY 01/22/16 Fexofenadine/Pseudoephedrine [Nataly-D 24 Hour Tablet] 1 each PO DAILY PRN 01/22/16 Insulin Aspart [Novolog] 25 unit SQ TID 01/22/16 Montelukast [Singulair*] 10 mg PO DAILY 01/22/16 Codeine/APAP [Tylenol #3*] 1 tab PO Q6HP PRN 04/17/16 Insulin Glargine,Hum.rec.anlog [Basaglar Kwikpen U-100] 50 units SQ BEDTIME 01/23/20 Multivit-Min/FA/Lycopen/Lutein [Senior Tabs] 1 tab PO DAILY 01/23/20 Polyethylene Glycol 3350 [Miralax] 17 gm PO DAILY #30 powd.pack 01/28/20 Tamsulosin HCl 0.4 mg PO DAILY #90 capsule 01/28/20 - Past Medical/Surgical History Has patient received pneumonia vaccine in the past: Yes Diabetic: Yes -: IDDM -: COPD -: hyperlipidemia -: HTN -: prostate CA -: arthritis -: pneumonia -: Prostate removal -: ileostomy -: trachea resection -: tonsillectomy - Family History Father -: Heart disease, Cancer Mother -: Heart disease - Social History Smoking Status: Former smoker Alcohol use: No CD- Drugs: No Caffeine use: Yes Place of Residence: Home Review of Systems 10-point ROS is otherwise unremarkable General: Weakness Physical Examination - Vital Signs Temperature: 97.7 F Blood Pressure: 127/59 Pulse: 91 Respirations: 18 Pulse Ox (%): 97 - Physical Exam General: In no apparent distress, Obese HEENT: Atraumatic, PERRLA, Mucous membr. moist/pink, EOMI, Sclerae nonicteric Neck: Supple, 2+ carotid pulse no bruit, No LAD, Without JVD or thyroid abnormality Respiratory: Clear to auscultation bilaterally, Normal air movement Cardiovascular: Regular rate/rhythm, Normal S1 S2 Gastrointestinal: Normal bowel sounds, No tenderness Musculoskeletal: No tenderness Integumentary: No rashes Neurological: Normal gait, Normal speech, Normal strength at 5/5 x4 extr, Normal tone, Normal affect Lymphatics: No axilla or inguinal lymphadenopathy - Studies Laboratory Data (last 24 hrs) 04/14/20 15:25: PT 14.3 H, INR 1.22, APTT 35.2 04/14/20 15:25: WBC 10.9, Hgb 10.4 L, Hct 32.0 L, Plt Count 205 04/14/20 15:25: Sodium 143, Potassium 3.4 L, BUN 52 H, Creatinine 2.93 H, Glucose 44 L*, Magnesium 2.3, Total Bilirubin 0.5, AST 21, ALT 15, Alkaline Phosphatase 41 L, Lipase 87 - Diagnosis (Problem(s)) (1) Acute on chronic renal failure Current Visit: Yes Status: Acute Plan: 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 HE WILL REDUCE LASIX , STOP LISINOPRIL. USES LASIX PRN ONLY. ONCE AGAIN WEIGHT LOSS WILL HELP HIM REDUCE MEDS. Qualifiers: Chronic kidney disease stage: stage 4 (severe) (2) Hypoglycemia Current Visit: Yes Status: Acute Plan: HPI. (3) Diabetes Current Visit: No Status: Chronic Plan: I WILL ADJUST HIS MEDS HE LOSES WEIGHT. Qualifiers: Diabetes mellitus type: type 2 (4) Metastatic malignant neoplasm to prostate Current Visit: No Status: Chronic - Disposition Disposition: ROUTINE DISCHARGE Condition: FAIR Patient Discharge Instructions: DO NOT TAKE FUROSEMIDE FOR A FEW DAYS. TAKE IT ONLY IF YOU SWELL IN LEGS. DO NOT TAKE IT IF BP IS LESS THAN 120 SYSTOLIC. REDUCE NOVOLOG TO 15 UNITS BEFORE MEALS AND AVOID INSULIN IF GLUCOSE IS LESS THAN 120. ONCE YOU LOSE WEIGHT YOU WILL NEED LESS INSULIN. CUT BACK ON BOTH LONG ACTING INSULIN AND NOVOLOG IF YOU CONTINUE TO LOSE WEIGHT. LOSING WEIGHT WILL MAKE YOU LESS DIABETIC.
[2020-04-15 12:36] VITALS: BP 146/64; TEMP 98
--- NOTE | 2020-04-15 15:18 | EKG ---
Test Date: 2020-04-14 Test Time: 15:10:03 Electrocardiograph Repairer: ALL MEASUREMENT RESULTS: Intervals: Rate: 91 LA: 208 QRSD: 146 QT: 414 QTc: 509 Victoria: P: 47 LA: 208 QRS: -54 T: 106 INTERPRETIVE STATEMENTS: Sinus rhythm with occasional premature ventricular complexes and premature atrial complexes Left axis deviation Left bundle branch block Abnormal ECG Compared to ECG 04/14/2020 00:00:54 Atrial premature complex(es) now present Ventricular premature complex(es) now present Sinus tachycardia no longer present Fusion complex(es) no longer present Electronically Signed On 04-15-20 15:17:05 CDT by Rylan Foster
[2020-04-15] MEDS ORDERED: ATORVASTATIN 40 MG TAB PO SCH (21:00)
[2020-04-16] MEDS ORDERED: ENOXAPARIN 30 MG/0.3 ML SQ SCH (09:00)
== END 2020-04-15 12:43 | disposition home or self-care (01) ==
LOC: ER 14:50 → ERHOLD 18:24 → 2ND 19:40
PROVIDERS: ADMIT Internal Medicine; ATTEND Internal Medicine
DX: E11.649 Type 2 diabetes mellitus with hypoglycemia without coma (principal); E11.22 Type 2 diabetes mellitus with diabetic chronic kidney disease; I12.9 Hypertensive chronic kidney disease with stage 1 through stage 4 chronic kidney disease, or unspecified chronic kidney disease; N18.4 Chronic kidney disease, stage 4 (severe); N17.9 Acute kidney failure, unspecified; R55 Syncope and collapse; S00.81XA Abrasion of other part of head, initial encounter; I95.9 Hypotension, unspecified; J44.9 Chronic obstructive pulmonary disease, unspecified; E78.5 Hyperlipidemia, unspecified; E66.01 Morbid (severe) obesity due to excess calories; Z68.41 Body mass index [BMI] 40.0-44.9, adult; M19.90 Unspecified osteoarthritis, unspecified site; C79.82 Secondary malignant neoplasm of genital organs; Z79.4 Long term (current) use of insulin; Z79.899 Other long term (current) drug therapy; Z93.2 Ileostomy status; Z87.01 Personal history of pneumonia (recurrent); Z90.79 Acquired absence of other genital organ(s); Z87.891 Personal history of nicotine dependence; Z80.9 Family history of malignant neoplasm, unspecified; Z82.49 Family history of ischemic heart disease and other diseases of the circulatory system
CPT/HCPCS: 93005; 85025 ×2; 80048 ×2; 36415; 83735; 82550; 85049; 85610; 82947 ×5; 80076; 85730; 84484; 82553; 83690; 70450; 96374; 99285; J7030; G0378 ×3

== ENCOUNTER 2021-04-06 15:02 | Observation (INO) | payer OTHER ==
--- OUTSIDE RECORDS SUMMARY | 2021-04-06 17:48 | XMS REPORT | Continuity of Care Document ---
:1935 Author Organization [facility] t Address [address] [place] [address] Care Team Providers Name Role Phone SLICK Attending Clinician Unavailable AHMED Attending Clinician Unavailable KRUGER Admitting Clinician Unavailable AHMED Admitting Clinician Unavailable Problems Condition Condition Condition Status Onset Resolution Last Treating Co mments Source Name Details Category Date Date Treatment Clinician Date DIC DIC Disease Active [facility] (dissemina [...] Disease Active [facility]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 5-17 [facility] ARF (acute ARF (acute Disease Active [facility] renal renal 5-16 [facility] - failure) failure) 00:00: Medica l 00 Center 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 5-16 Leila kes - c c 00:00: Medical [...] i ent Clinics Other Other Problem Active [facility] St chronic chronic [facility] - pain pain [facility]oria l [facility] Clinics Pain, Pain, Diagnosis Active [facility] St joint, joint, [facility] - knee, left knee, left Me moria l [facility] Clinics Pain in Pain in Diagnosis [facility] right knee Leila kes - Memoria l [facility] Primary Primary Diagnosis Active [facility] osteoarthr osteoarthr Leila kes - itis of itis of Memoria left knee left knee l [facility] Clinics Primary Primary Diagnosis Active [facility] osteoarthr osteoarthr Leila kes - itis of itis of Memoria right knee right knee l [facility] Clinics Sciatica, Sciatica, Problem Active [facility] left side left side Luke s - Memoria l [facility] Clinics COPD COPD Disease Active [facility] (chronic (chronic [facility] - obstructiv obstructiv Wy dical e e Center pulmonary pulmonary disease) disease) Hypertensi Hypertensi Disease Active [facility] on [facility] Cancer Cancer Disease Active Overview: [facility] prostate [facility] Diabetes Diabetes Disease Active [facility] mellitus mellitus [facility] Arthritis Arthritis Disease Active Overview: [facility] back [facility] Allergies, Adverse Reactions, Alerts This patient has no known allergies or adverse reactions. Social History Social Habit Start Date Stop Date Quantity Comments Source Sex Assigned At [facility] Alcohol intake 2016-01-23 2016-01-23 Current [facility] es - 00:00:00 00:00:00 non-drinker of Medical Ce nter alcohol (finding) Smoking Status Start Date Stop Date Source Former smoker 2016-01-23 00:00:00 2016-01-23 00:00:00 [facility] Medications Ordered Filled Start Stop Current Ordering Indication Dosage Frequency Signature Comments Components Source Medication Medication Date Date Medication? Clinician (SIG) Name Name traMADol Yes 50mg Take 50 mg [facility] (ULTRAM) 50 6-01 by mouth Luke s - mg tablet 21:28: every 6 Medic al 35 (six) Center hours as needed for Pain. tiotropium Yes 18ug QD Inhale [address] (SPIRIVA) 6-01 mcg by [facility] - 18 mcg 21:28: mouth via Medica l inhalation 35 inhaler Center capsule daily. montelukast Yes 10mg QD Take [address] [address] (SINGULAIR) 6-01 by mouth Luke s - 10 mg 21:28: nightly. Medical tablet 35 Center losartan Yes 100mg QD Take [address] (COZAAR) 6-01 mg by [facility] - 100 MG 21:28: mouth Medical tablet 35 daily. Center insulin Yes type 2 50U QD Inject [address] glargine 6-01 diabetes Units [facility] - (LANTUS) 21:28: mellitus subcutaneo Medical 100 unit/mL 35 usly Center injection nightly Use as directed . insulin Yes type 2 25U Inject [address] aspart 6-01 diabetes Units [facility] - (NOVOLOG) 21:28: mellitus subcutaneo Medical 100 unit/mL 35 usly 3 Center injection (three) times daily before meals. ezetimibe-s Yes 1{tbl} QD Take [address] imvastatin 6-01 tablet by Luke s - (VYTORIN) 21:28: mouth Medical 10-10 mg 35 daily. [place] per tablet budesonide- Yes 2{puff} Q.5D Inhale [address] formoterol 6-01 puffs by [facility] - (SYMBICORT) 21:28: mouth via M edical 160-4.5 35 inhaler 2 Center mcg/actuati (two) on inhaler times daily. Lantus Lantus Yes Ihsan INJECT [address] SoloStar SoloStar Martin UNITS Luke s - UNDER THE Memoria SKIN EVERY l MORNING Outpati BEFORE ent BREAKFAST Clinics AND AT BEDTIME AT SAME TIME DAILY Acetaminoph Acetaminoph Yes Ihsan (Schedule [facility] en-Codeine en-Codeine Martin III Drug) [place] - #3 #3 TAKE 1 Memoria TABLET [...] Martin TABLET BY [facility] - MOUTH AT [facility] BEDTIME l Outpati ent Clinics Furosemide Furosemide Yes Ihsan TAKE [address] [facility] [address] Martin TABLET BY [facility] - MOUTH [facility] ALTERNATE l WITH 1 & Outpati 1/2 TABLET ent EVERY Clinics OTHER DAY Fenofibrate Fenofibrate Yes Ihsan TAKE [address] [facility] Martin TABLET [facility] - EVERY DAY [facility] Immunizations Ordered Immunization Filled Immunization Date Status Commen ts Source Name Name Meningococcal 2016-01-[address] [facility] - Conjugate 00:00:00 Medical Center HiB 2016-01-[address] [facility] Procedures This patient has no known procedures. Encounters Start End Encounter Admission Attending Care Care Encounter Source Date/Time Date/Time Type Type Clinicians Facility Department ID 2020-04-20 2020-04-20 Outpatient SEBASTIAN KRUGER [facility] [id number] [place] 00:00:00 00:00:[address] 2020-04-12 2020-04-13 Outpatient NEETU [facility] [id number] [place] 00:00:00 00:00:00 [facility]TER [id number] 2018-05-15 2018-05-15 Outpatient [facility] [id number] [facility] 14:00:00 14:00:[facility] 2018-05-08 2018-05-08 [facility] [id number] 15:00:00 15:00:00 [facility] 2018-05-01 2018-05-01 [facility] [id number] 14:30:00 14:30:00 t [facility] 2018-04-21 2018-04-21 [facility] [id number] 13:22:00 13:22:00 t [facility] ent Clinics 2018-04-02 2018-04-02 [facility] [id number] 10:30:00 10:30:00 t [facility] ent Clinics Results Test Description Test Time Test Comments Results Result Comments Source SARS-COV2/RT-PCR ([facility]) 2020-01-23 21:06:00 Test Item Value Reference Range Interpretation Comme nts SARS-COV2/RT-PCR (test code = 1804974) Detected Not Detected, N egative AA SARS-COV-2 PERFORMING LAB (test code = 1530726) [facility] Results are for the detection of SARS-CoV-2 [...] copies/mL.This SARS CoV-2 test is a rapid, [id number] test intended for the qualitative detection of [...] 564(g) of the Act.Fact Sheet for Healthcare Providers:https://www.[employer].com/ Documents/Xpert%20Xpress%20SARS%20CoV-2/Fact%20Sheets/302-1152%69MIRT-XZG-9%20HE ALTHCARE%20PROVIDERS%20FACT%20SHEET.pdfFact Sheet for Healthcare Patients:https://www.[employer]/Documents/Xpert%20Xpress %20SARS%20CoV-2/Fact%20Sheets/302-3801%68JSUH-MFJ-4%20PATIENT%20FACT%20SHEET.pdf Performing Laboratory:[facility] [place] [address]
[2021-04-06] MEDS ORDERED: GLUCAGON 1 MG/VIAL IM PRN (18:14)
[2021-04-06] MEDS ORDERED: ALBUTEROL 2.5 MG/3 ML NEB SOL NEB PRN (18:16)
[2021-04-06] MEDS ORDERED: DIPHENHYDRAMINE 25 MG TAB/CAP PO PRN (18:17)
[2021-04-06] MEDS ORDERED: ACETAMINOPHEN 325 MG TABLET PO PRN (18:17)
[2021-04-06] MEDS ORDERED: LOPERAMIDE HCL 2 MG CAPSULE PO PRN (18:18)
[2021-04-06] MEDS ORDERED: POLYETHYL GLY 3350 17 GM/DOSE PO PRN (18:19)
[2021-04-06] MEDS ORDERED: ONDANSETRON 4 MG/2 ML VIAL IV PRN (18:19)
[2021-04-06] MEDS ORDERED: D50W 25 GM/50 ML VIAL IV PRN (18:23)
[2021-04-06 18:39] VITALS: BMI 38.6
--- NOTE | 2021-04-06 18:50 | RAD REPORT ---
EXAM DESCRIPTION: RAD - Chest Pa And Lat (2 Views) - 04/06/2021 6:34 pm CLINICAL HISTORY: dyspnea COMPARISON: Chest Pa And Lat (2 Views) dated 03/31/2021; Chest Single View dated 04/14/2020; Chest Sing le View dated 01/27/2020; Chest Single View dated 01/23/2020 FINDINGS: No evidence of edema or pneumonia. The heart size is within normal limits.No acute osseous abnormality. No significant pleural effusions or pneumothorax. IMPRESSION: No acute cardiopulmonary disease.
[2021-04-06 19:27] LABS: Basophils % 0.6 % (0-1.3); Hematocrit 40.3 % (39.6-49.0); Lymphocytes % 16.2 % (15.3-44.8); MPV 10.4 fL (7.6-11.3); RBC Red Blood Cell Count 4.33 M/uL (4.33-5.43)
[2021-04-06 19:40] LABS: Protime INR 1.13
[2021-04-06] MEDS ORDERED: ENOXAPARIN 40 MG/0.4 ML SQ SCH (20:00)
[2021-04-06] MEDS: LEVALBUTEROL 1.25 MG/3 ML NEB NEB SCH (20:00)
[2021-04-06 20:45] LABS: Albumin 3.8 g/dL (3.4-5.0); Bilirubin Direct 0.2 mg/dL (0-0.2); Bilirubin Total 0.5 mg/dL (0.2-1.0); Magnesium 2.4 mg/dL (1.8-2.4); Phosphorus 6.9 mg/dL (2.5-4.9); Potassium 4.9 mmol/L (3.5-5.1); Protein, Total 7.4 g/dL (6.4-8.2); Thyroid Stimulating Hormone 0.764 uIU/mL (0.360-3.740)
[2021-04-06] MEDS: INSULIN -REGULAR HUMAN 50 UNIT/0.5 ML ML SQ SCH (21:00)
[2021-04-07] MEDS: LEVALBUTEROL 1.25 MG/3 ML NEB NEB SCH ×3 (01:30→13:32)
[2021-04-07 06:05] LABS: Absolute Lymphocytes (CBC) 1.8 K/uL (0.7-4.9); Basophils % 0.8 % (0-1.3); Hematocrit 35.9 % (39.6-49.0); Lymphocytes % 19.9 % (15.3-44.8); MPV 10.3 fL (7.6-11.3); RBC Red Blood Cell Count 3.84 M/uL (4.33-5.43)
[2021-04-07 06:17] LABS: Protime INR 1.15
[2021-04-07 06:18] LABS: Magnesium 2.4 mg/dL (1.8-2.4); Potassium 4.3 mmol/L (3.5-5.1)
[2021-04-07] MEDS: INSULIN -REGULAR HUMAN 50 UNIT/0.5 ML ML SQ SCH ×3 (07:30→16:28)
[2021-04-07] MEDS ORDERED: ENOXAPARIN 30 MG/0.3 ML SQ SCH (09:00)
[2021-04-07] MEDS ORDERED: GABAPENTIN 300 MG CAP PO SCH (09:00)
[2021-04-07] MEDS ORDERED: AMLODIPINE 5 MG TAB PO SCH (09:00)
[2021-04-07] MEDS ORDERED: clonazePAM 0.5 MG TAB PO SCH (09:00)
[2021-04-07] MEDS ORDERED: FENOFIBRATE 160 MG TAB PO SCH (09:00)
[2021-04-07] MEDS ORDERED: LATANOPROST 0.005% 2.5ML OPTH OPTH SCH (09:00)
[2021-04-07] MEDS ORDERED: SERTRALINE HCL 50 MG TAB PO SCH ×2 (09:00)
[2021-04-07 09:20] VITALS: O2SAT 100
--- NOTE | 2021-04-07 09:24 | P.CNS ---
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 He reports having SOB for the past few days. CXR is unremarkable. VQ scan showed low prob for PE. Referred to Nephrology for ELLIOTT on CKD. GFR currently at 16 ml/min. Allergies No Known Allergies Allergy (Verified 04/14/20 21:15) Home Medications: Amlodipine Besylate 5 mg PO DAILY 04/06/21 Atorvastatin Calcium 40 mg PO BEDTIME 04/06/21 Dapagliflozin Propanediol [Farxiga] 5 mg PO DAILY 04/06/21 Enzalutamide [Xtandi] 40 mg PO TID 04/06/21 Fenofibrate [Tricor] 145 mg PO DAILY 04/06/21 Gabapentin 300 mg PO BID 04/06/21 Insulin Glargine,Hum.rec.anlog [Basaglar Kwikpen U-100] 50 units SQ BEDTIME 04/06/21 Latanoprost [Xalatan] 2.5 ml OP DAILY 04/06/21 Montelukast [Singulair*] 1 tab PO BEDTIME 04/06/21 Sertraline HCl 25 mg PO BID 04/06/21 - Past Medical/Surgical History Diabetic: Yes -: IDDM -: COPD -: hyperlipidemia -: HTN -: prostate CA -: arthritis -: pneumonia -: Prostate removal -: ileostomy -: trachea resection -: tonsillectomy - Family History Father Medical History: Heart disease, Cancer Mother Medical History: Heart disease - Social History Alcohol use: No CD- Drugs: No Caffeine use: No Place of Residence: Home Review of Systems General: Unremarkable Eyes: Unremarkable ENT: Unremarkable Respiratory: Shortness of Breath, SOB with Excertion Cardiovascular: Unremarkable Gastrointestinal: Unremarkable Genitourinary: Unremarkable Musculoskeletal: Unremarkable Integumentary: Unremarkable Neurological: Unremarkable Lymphatics: Unremarkable Physical Examination Temp Pulse Resp BP Pulse Ox 96.9 F 68 19 120/58 L 100 04/07/21 08:00 04/07/21 08:00 04/07/21 08:00 04/07/21 08:00 04/07/21 08:00 General: Other (Appears as his stated age) HEENT: Atraumatic, Normocephalic Neck: Supple, JVD not distended Respiratory: Normal air movement Cardiovascular: Normal S1 S2, No rubs, No murmurs Gastrointestinal: Soft and benign, Non-distended Musculoskeletal: No clubbing, Swelling Integumentary: No warmth Neurological: Normal speech, Normal tone Lymphatics: No axilla or inguinal lymphadenopathy Urinary: Other (No bladder distention) External genitalia: Deferred Rectal: Deferred Laboratory Data (last 24 hrs) 04/07/21 05:32: Sodium 136, Potassium 4.3, BUN 86 H, Creatinine 3.73 H, Glucose 174 H, Magnesium 2.4 04/07/21 05:32: PT 13.2 H, INR 1.15 04/07/21 05:32: WBC 8.90 D, Hgb 12.0 L, Hct 35.9 L, Plt Count 163 D 04/06/21 19:09: Sodium 136, Potassium 4.9, BUN 80 H D, Creatinine 3.49 H D, Glucose 169 H, Phosphorus 6.9 H, Magnesium 2.4 D, Total Bilirubin 0.5, AST 20, ALT 23, Alkaline Phosphatase 42 L 04/06/21 19:09: PT 13.0 H, INR 1.13, APTT 24.8 04/06/21 19:09: WBC 12.40 H, Hgb 13.3 L, Hct 40.3, Plt Count 209 Conclusions/Impression: # ELLIOTT likely 2/2 prerenal state +/- ATN from prolonged prerenal, on CKD stage 3b-4 2/2 Htn/DN Has minimal protinuria still on the over volume side :. Most recent GFR prehospitalization at 32 mL/min, currently at 16 ml/min [place] po fluid intake. Do NOT restrict po fluid intake unless he develops hyponatremia Monitor renal panel # Acute respiratory failure CXR unremarkable VQ scan low prob for PE O2 suppl prn Hold off lasix unless he develops more SOB BNP not sig elevated at 317 CT chest in January 2021 showed some e/o of pulmo Htn w/ somewhat dilated main pulmo artery F/u TTE Will need to resume diuretic when ELLIOTT better Low Na diet 6-min walk test today # HTN BP stable Continue/resume Amlodipine Hold lisinopril Hold lasix # Proteinuria Advised on BP control less than 140/90 or less than 130/80 long-term, if tolerated Contiinue low-salt diet Continue statin Glycemic control. Follow-up with primary care physician for the management Was on lisinopril 5 g by mouth daily at home. Hold for now, resume as outpt when GFR above 25 ml/min # Borderline hyperkalemia Serum potassium wnl currently Was on Veltassa 8.4 g by mouth daily. Hold for now. Will likely need to resume this when he's back on lisinopril # Prostate CA On hormonal tx F/u with Oncology. # Secondary hyperPTH Calcitriol 0.25 mcg po daily F/u serum 25OHD level # BLE chronic lymphedema Cont BLE graduated compression stockings, use during daytime, remove at bedtime Low Na diet
--- NOTE | 2021-04-07 12:06 | RAD REPORT ---
EXAM DESCRIPTION: NM - Vent Perfusion VQ Scan - 04/07/2021 11:56 am CLINICAL HISTORY: Shortness of breath COMPARISON: April 06, 2021 chest x-ray TECHNIQUE: 19.3 Mci [id number] was administered by inhalation. First breath, equilibrium, and washout images of the lungs obtained 7.3 millicuries Technetium-99 MAA was administered intravenously. Anterior, posterior, lateral and ob lique views of the lungs were taken. FINDINGS: The lungs demonstrate mildly inhomogeneous radiotracer activity on perfusion sequences. No mismatched segmental or lobar perfusion defects are seen. IMPRESSION: Low probability of a pulmonary embolus
--- NOTE | 2021-04-07 12:09 | RAD REPORT ---
EXAM DESCRIPTION: US - Renal Ultrasound-Complete - 04/07/2021 11:41 am CLINICAL HISTORY: Chronic renal disease COMPARISON: January 2021 cat scan FINDINGS: The right kidney measures 11 cm with an increased echotexture. The left kidney measures 11 cm with an increased echotexture. Hydronephrosis is not seen. No gross abnormality of bladder is seen IMPRESSION: Mildly increased renal echotexture consistent with parenchymal disease
[2021-04-07 12:13] LABS: Urine Protein/Creatinine Ratio 0.84 ratio (<0.15)
--- NOTE | 2021-04-07 16:15 | P.DS ---
Admission Date: 04/06/21 Discharge Date: 04/07/21 Disposition: ROUTINE DISCHARGE Discharge Condition: SERIOUS Reason for Admission: SOB Hospital Course: MR. EMERY CAME WITH DYSPNEA, HE DID NOT HAVE CHF, PNEUMONIA OR PE. HE HAS WORSE RENAL FUNCTION AND IS SEEN BY RENAL MD. THEY WILL FU WITH HIM. HE ALSO HAS LOT OF ANXIETY ESPECIALLY WITH WORSENING CONDITION AND GLOBAL WORRIES. Vital Signs/Physical Exam: Temp Pulse Resp BP Pulse Ox 98.9 F 86 18 101/49 L 99 04/07/21 12:00 04/07/21 12:00 04/07/21 12:00 04/07/21 12:00 04/07/21 12:00 Laboratory Data at Discharge: WBC 8.90 K/uL (4.3-10.9) D 04/07/21 05:32 Hgb 12.0 g/dL (13.6-17.9) L 04/07/21 05:32 Hct 35.9 % (39.6-49.0) L 04/07/21 05:32 Plt Count 163 K/uL (152-406) D 04/07/21 05:32 PT 13.2 SECONDS (9.5-12.5) H 04/07/21 05:32 INR 1.15 04/07/21 05:32 APTT 24.8 SECONDS (24.3-36.9) 04/06/21 19:09 Sodium 136 mmol/L (136-145) 04/07/21 05:32 Potassium 4.3 mmol/L (3.5-5.1) 04/07/21 05:32 BUN 86 mg/dL (7-18) H 04/07/21 05:32 Creatinine 3.73 mg/dL (0.55-1.3) H 04/07/21 05:32 Glucose 174 mg/dL (74-106) H 04/07/21 05:32 Phosphorus 6.9 mg/dL (2.5-4.9) H 04/06/21 19:09 Magnesium 2.4 mg/dL (1.8-2.4) 04/07/21 05:32 Total Bilirubin 0.5 mg/dL (0.2-1.0) 04/06/21 19:09 AST 20 U/L (15-37) 04/06/21 19:09 ALT 23 U/L (12-78) 04/06/21 19:09 Alkaline Phosphatase 42 U/L (45-117) L 04/06/21 19:09 Home Medications: Amlodipine Besylate 5 mg PO DAILY 04/06/21 Atorvastatin Calcium 40 mg PO BEDTIME 04/06/21 Dapagliflozin Propanediol [Farxiga] 5 mg PO DAILY 04/06/21 Enzalutamide [Xtandi] 40 mg PO TID 04/06/21 Fenofibrate [Tricor*] 145 mg PO DAILY 04/06/21 Gabapentin 300 mg PO BID 04/06/21 Insulin Glargine,Hum.rec.anlog [Basaglar Vernonikpen U-100] 50 units SQ BEDTIME 04/06/21 Latanoprost [Xalatan] 2.5 ml OP DAILY 04/06/21 Montelukast [Singulair*] 1 tab PO BEDTIME 04/06/21 Sertraline [Zoloft*] 50 mg PO BID #60 tab 04/07/21 New Medications: Sertraline [Zoloft*] 50 mg PO BID #60 tab
[2021-04-07 16:38] LABS: Urine Appearance CLEAR (Clear); Urine Bilirubin NEGATIVE (Negative); Urine Blood NEGATIVE (Negative); Urine Color YELLOW (Yellow); Urine Glucose 3+ (Negative); Urine Protein 2+ (Negative); Urine Urobilinogen 0.2 mg/dL (0.2-1.0); Urine pH 5.5 (5.0-7.0)
[2021-04-07 16:43] LABS: Urine Microscopic Reflex ORDER UMIC
[2021-04-07 16:49] VITALS: BP 156/72; TEMP 97.9
[2021-04-07 17:40] LABS: Urine Bacteria <20 /HPF (NONE SEEN); Urine RBC <5 /HPF (NONE SEEN)
[2021-04-07] MEDS ORDERED: MONTELUKAST 10 MG TAB PO SCH (21:00)
[2021-04-07] MEDS ORDERED: ATORVASTATIN 40 MG TAB PO SCH (21:00)
[2021-04-07] MEDS ORDERED: INSULIN GLARGINE 100 UNITS/ML SQ SCH (21:00)
--- NOTE | 2021-04-10 08:49 | ECHO ---
HEIGHT: 5 ft 10.5 in WEIGHT: 273 lb 0 oz DATE OF STUDY: 04/07/[address]: Izaiah Segal MD 2-DIMENSIONAL: YES M.MODE: YES DOPPLER: YES COLOR FLOW: YES TDS: NO PORTABLE: NO DEFINITY: NO BUBBLE STUDY: NO DIAGNOSIS: DYSPNEA CARDIAC HISTORY: CATHERIZATION: NO SURGERY: NO PROSTHETIC VALVE: NO PACEMAKER: NO MEASUREMENTS (cm) DIASTOLIC (NORMALS) SYSTOLIC (NORMALS) IVSd 1.3 (0.6-1.2) LA Diam 2.9 (1.9-4.0) LVEF 55-60% LVIDd 5.0 (3.5-5.7) LVIDs 3.7 (2.0-3.5) %FS 26% LVPWd 1.3 (0.6-1.2) Ao Diam 3.1 (2.0-3.7) 2 DIMENSIONAL ASSESSMENT: RIGHT ATRIUM: NORMAL LEFT ATRIUM: NORMAL RIGHT VENTRICLE: NORMAL LEFT VENTRICLE: NORMAL TRICUSPID VALVE: NORMAL MITRAL VALVE: PULMONIC VALVE: NORMAL AORTIC VALVE: NORMAL PERICARDIAL EFFUSION: NONE AORTIC ROOT: NORMAL LEFT VENTRICULAR WALL MOTION: NORMAL DOPPLER/COLOR FLOW: SEE BELOW. COMMENTS: NORMAL LEFT VENTRICULAR EJECTION FRACTION 55-60% WITH NORMAL WALL MOTION. MILD DIASTOLIC DYSFUNCTION. MILD MITRAL REGURGITATION. TECHNOLOGIST: Omayra AMARAL
[2021-04-12 01:30] LABS: Vitamin D 1,25-Dihydroxy Total 17 pg/mL (18-72); Vitamin D,1,25-OH2, D2 <8 pg/mL
== END 2021-04-07 17:24 | disposition home or self-care (01) ==
LOC: 2ND 17:45
PROVIDERS: ADMIT Internal Medicine; ATTEND Internal Medicine
DX: R06.00 Dyspnea, unspecified (principal); E11.22 Type 2 diabetes mellitus with diabetic chronic kidney disease; I12.9 Hypertensive chronic kidney disease with stage 1 through stage 4 chronic kidney disease, or unspecified chronic kidney disease; N18.30 Chronic kidney disease, stage 3 unspecified; N17.9 Acute kidney failure, unspecified; N25.81 Secondary hyperparathyroidism of renal origin; E11.40 Type 2 diabetes mellitus with diabetic neuropathy, unspecified; F41.9 Anxiety disorder, unspecified; R80.9 Proteinuria, unspecified; E78.5 Hyperlipidemia, unspecified; I89.0 Lymphedema, not elsewhere classified; G89.29 Other chronic pain; G47.30 Sleep apnea, unspecified; J44.9 Chronic obstructive pulmonary disease, unspecified; M19.90 Unspecified osteoarthritis, unspecified site; E66.01 Morbid (severe) obesity due to excess calories; Z68.41 Body mass index [BMI] 40.0-44.9, adult; Z20.822 Contact with and (suspected) exposure to COVID-19; Z79.4 Long term (current) use of insulin; Z85.46 Personal history of malignant neoplasm of prostate; Z80.9 Family history of malignant neoplasm, unspecified; Z82.49 Family history of ischemic heart disease and other diseases of the circulatory system
CPT/HCPCS: 93306; 87040; 85025 ×2; 80048 ×2; 36415 ×2; 83735 ×2; 82550 ×2; 84100; 84132; 85610 ×2; 84300; 82947 ×4; 85379; 80076; 85730; 82652; 84443; 83036; 82570 ×2; 82607; 83970; 82306; 83880; 83935; 84156; 82043; 71046; 76770; 94640; 78582; U0003; J1650 ×2; A9558; A9540; G0379; G0378 ×2; 81003; 81015

== ENCOUNTER 2022-07-05 11:23 | Emergency (ER) | payer OTHER ==
--- OUTSIDE RECORDS SUMMARY | 2022-07-05 11:30 | XMS REPORT | Continuity of Care Document ---
:1935 Author Organization [facility] t Address [address] [place] [address] Care Team Providers Name Role Phone Asked, No Pcp Primary Care Physician Unavailable Izaiah Segal Attending Clinician Unavailable SEBASTIAN KRUGER Attending Clinician Unavailable CARTER DE ANDA Attending Clinician Unavailable SEBASTIAN KRUGER Admitting Clinician Unavailable CARTER DE ANDA Admitting Clinician Unavailable Problems Condition Condition Condition Status Onset Resolution Last Treating Co mments Source Name Details Category Date Date Treatment Clinician Date Hypertensi Hypertensi Disease Active M ethodi ve urgency ve urgency 04-12 00:00: Hospita 00 l DIC DIC Disease Active [facility] (dissemina (dissemina 5-24 Leila kes parul parul 00:00: Medical intravascu intravascu 00 Ce nter lar lar coagulatio coagulatio n) n) 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[facility] (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 Elila kes opathic opathic 00:00: Medical hemolytic hemolytic 00 Cent er anemia) anemia) Thrombocyt Thrombocyt Disease Active [facility]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 [facility]17 [facility] 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 00:00: Medica l 00 Center Thrombocyt Thrombocyt Disease Active [facility]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 5-17 [facility] 00 Center ARF (acute ARF (acute Disease Active [facility] renal renal 5-16 [facility] failure) failure) 00:00: Medica l 00 Center 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 prostate Diabetes Diabetes Disease Active [facility] mellitus mellitus [facility] Arthritis Arthritis Disease Active [facility]: [facility] g of this Medical note Center might be different from the original. back COPD COPD Disease Active [facility] (chronic (chronic [facility] obstructiv obstructiv Me dical e e [place] pulmonary pulmonary disease) disease) Right Right Problem Active Common sciatic sciatic Spirit nerve pain nerve pain - [facility] Morbid Morbid Problem Active Common obesity obesity Spirit due to due to [facility] excess excess St calories calories [facility] Other Other Problem Active Common chronic chronic Spirit pain pain - [facility] Pain, Pain, Diagnosis Active Common joint, joint, Spirit knee, left knee, left - [facility] Pain in Pain in Diagnosis Active Commo n right knee right knee Sp doris - [facility] Primary Primary Diagnosis Active Commo n osteoarthr osteoarthr Sp doris itis of itis of [facility] left knee left knee [facility] Primary Primary Diagnosis Active Commo n osteoarthr osteoarthr Sp doris itis of itis of [facility] right knee right knee [facility] Sciatica, Sciatica, Problem Active Com mon left side left side Spir it - [facility] Allergies, Adverse Reactions, Alerts This patient has no known allergies or adverse reactions. Social History Social Habit Start Date Stop Date Quantity Comments Source History of Cigarette Smoker Methodis t tobacco use Hospital History SDOH Jainism Alcohol Frequency Hospita l History SDOH Jainism Alcohol Std Hospital Drinks History SDOH Jainism Alcohol Binge Hospital Alcohol Comment 2020-04-12 2020-04-12 occ Jainism 00:00:00 00:00:00 Hospital Tobacco use and 2020-04-12 2020-04-12 Smokeless tobacco Me thodist exposure 00:00:00 00:00:00 non-user Hospital Alcohol intake 2016-01-23 2016-01-23 Current [facility] es 00:00:00 00:00:00 non-drinker of Medical Ce nter alcohol (finding) Sex Ass[birth year] At [birth year] [facility] Morales 00:00:00 00:00:00 Medical Center Smoking Status Start Date Stop Date Source Ex-smoker 2020-04-12 00:00:00 2020-04-12 00:00:00 [facility] Medications Ordered Filled Start Stop Current Ordering Indication Dosage Frequency Signature Comments Components Source Medication Medication Date Date Medication? Clinician (SIG) Name Name insulin 2020-0 Yes 25U [id number] Inject 25 Methodi ASPART 8-[id number] (NovoLOG) 13:08: 3D under the Hos steven 100 unit/mL 16 skin 3 l injection (three) times a day before meals. montelukast 2020-0 Yes 10mg QD Take 10 mg Methodi (SINGULAIR) 8-[address] 10 mg 13:08: nightly. Hospita tablet 16 l latanoprost 2020-0 Yes 1[drp] QD 1 drop Me thodi (XALATAN) 8-[address] 0.005 % 13:08: Hospita ophthalmic 16 l solution gabapentin 2020-0 Yes 300mg Q.5D Take 300 Me thodi (NEURONTIN) 8-[address] 300 mg 13:08: mouth 2 Hospita capsule 16 (two) l times a day. insulin 2020-0 Yes 50U QD Inject 50 Metho di GLARGINE 8-[address] (LANTUS) 13:08: under the Hosp blake 100 unit/mL 16 skin l injection nightly. (vial) atorvastati 2020-0 Yes 40mg QD Take 40 mg Methodi n (LIPITOR) 8-[address] 40 mg 13:08: daily. Hospita tablet 16 l acetaminoph 2020-0 Yes [id number] 1{tbl} Q6H Take 1 M ethodi en-codeine 8-[address] (TYLENOL 13:08: mouth Hospita WITH 16 every 6 l CODEINE #3) (six) 300-30 mg hours as per tablet needed for moderate pain .acute pain. multivitami 2020-0 Yes 1{tbl} QD Take 1 Me thodi n 8-[address] (THERAGRAN) 13:08: mouth Hospi ta tablet 16 daily. l cholecalcif 2020-0 Yes 2000U QD Take 2,000 Methodi keven, 8-[address] vitamin D3, 13:08: mouth Hospi ta 50 mcg 16 daily. l (2,000 unit) capsule capsule tamsulosin 2020-0 Yes .4mg QD Take 0.4 Met hodi (FLOMAX) 8-[address] 0.4 mg 13:08: mouth Hospita capsule 16 daily with l dinner. insulin 2020-0 Yes 25U [id number] Inject 25 Methodi ASPART 8-[id number] (NovoLOG) 13:08: 3D under the Hos steven 100 unit/mL 16 skin 3 l injection (three) times a day before meals. montelukast 2020-0 Yes 10mg QD Take 10 mg Methodi (SINGULAIR) 8-[address] 10 mg 13:08: nightly. Hospita tablet 16 l latanoprost 2020-0 Yes 1[drp] QD 1 drop Me thodi (XALATAN) 8-[address] 0.005 % 13:08: Hospita ophthalmic 16 l solution gabapentin 2020-0 Yes 300mg Q.5D Take 300 Me thodi (NEURONTIN) 8-[address] 300 mg 13:08: mouth 2 Hospita capsule 16 (two) l times a day. insulin 2020-0 Yes 50U QD Inject 50 Metho di GLARGINE 8-[address] (LANTUS) 13:08: under the Hosp blake 100 unit/mL 16 skin l injection nightly. (vial) atorvastati 2020-0 Yes 40mg QD Take 40 mg Methodi n (LIPITOR) 8-[address] 40 mg 13:08: daily. Hospita tablet 16 l acetaminoph 2020-0 Yes [id number] 1{tbl} Q6H Take 1 M ethodi en-codeine 8-[address] (TYLENOL 13:08: mouth Hospita WITH 16 every 6 l CODEINE #3) (six) 300-30 mg hours as per tablet needed for moderate pain .acute pain. multivitami 2020-0 Yes 1{tbl} QD Take 1 Me thodi n 8-[address] (THERAGRAN) 13:08: mouth Hospi ta tablet 16 daily. l cholecalcif 2020-0 Yes 2000U QD Take 2,000 Methodi keven, 8-[address] vitamin D3, 13:08: mouth Hospi ta 50 mcg 16 daily. l (2,000 unit) capsule capsule tamsulosin 2020-0 Yes .4mg QD Take 0.4 Met hodi (FLOMAX) 8-[address] 0.4 mg 13:08: mouth Hospita capsule 16 daily with l dinner. insulin 2020-0 Yes 25U [id number] Inject 25 Methodi ASPART 8-[id number] (NovoLOG) 13:08: 3D under the Hos steven 100 unit/mL 16 skin 3 l injection (three) times a day before meals. montelukast 2020-0 Yes 10mg QD Take 10 mg Methodi (SINGULAIR) 8-[address] 10 mg 13:08: nightly. Hospita tablet 16 l latanoprost 2020-0 Yes 1[drp] QD 1 drop Me thodi (XALATAN) 8-[address] 0.005 % 13:08: Hospita ophthalmic 16 l solution gabapentin 2020-0 Yes 300mg Q.5D Take 300 Me thodi (NEURONTIN) 8-[address] 300 mg 13:08: mouth 2 Hospita capsule 16 (two) l times a day. insulin 2020-0 Yes 50U QD Inject 50 Metho di GLARGINE 8-[address] (LANTUS) 13:08: under the Hosp blake 100 unit/mL 16 skin l injection nightly. (vial) atorvastati 2020-0 Yes 40mg QD Take 40 mg Methodi n (LIPITOR) 8-[address] 40 mg 13:08: daily. Hospita tablet 16 l acetaminoph 2020-0 Yes [id number] 1{tbl} Q6H Take 1 M ethodi en-codeine 8-[address] (TYLENOL 13:08: mouth Hospita WITH 16 every 6 l CODEINE #3) (six) 300-30 mg hours as per tablet needed for moderate pain .acute pain. multivitami 2020-0 Yes 1{tbl} QD Take 1 Me thodi n 8-[address] (THERAGRAN) 13:08: mouth Hospi ta tablet 16 daily. l cholecalcif 2020-0 Yes 2000U QD Take 2,000 Methodi keven, 8-[address] vitamin D3, 13:08: mouth Hospi ta 50 mcg 16 daily. l (2,000 unit) capsule capsule tamsulosin Yes .4mg QD Take 0.4 Met hodi (FLOMAX) 8-[address] 0.4 mg 13:08: mouth Hospita capsule 16 daily with l dinner. traMADol Yes 50mg Take [address] (ULTRAM) 50 6-01 by mouth Luke s mg tablet 21:28: every 6 Medic al 35 (six) Center hours as needed for Pain. tiotropium Yes 18ug QD Inhale [address] (SPIRIVA) 6-01 mcg by [facility] 18 mcg 21:28: mouth via Medica l inhalation 35 inhaler Center capsule daily. montelukast Yes 10mg QD Take [address] (SINGULAIR) 6-01 by mouth Luke s 10 mg 21:28: nightly. Medical tablet 35 Center losartan Yes 100mg QD Take [address] (COZAAR) 6-01 mg by [facility] 100 MG 21:28: mouth Medical tablet 35 daily. Center insulin Yes type 2 50U QD Inject [address] glargine 6-01 diabetes Units [facility]ukes (LANTUS) 21:28: mellitus subcutaneo Medical 100 unit/mL 35 usly Center injection nightly Use as directed . insulin Yes type 2 25U Inject [address] aspart 6-01 diabetes Units [facility] (NOVOLOG) 21:28: mellitus subcutaneo Medical 100 unit/mL 35 usly 3 Center injection (three) times daily before meals. ezetimibe-s Yes 1{tbl} QD Take [address] imvastatin 6-01 tablet by Luke s (VYTORIN) 21:28: mouth Medical 10-10 mg 35 daily. Center per tablet budesonide- Yes 2{puff} Q.5D Inhale [address] formoterol 6-01 puffs by [facility]ukes (SYMBICORT) 21:28: mouth via M edical 160-4.5 35 inhaler 2 Center mcg/actuati (two) on inhaler times daily. traMADol 2016-0 Yes 50mg Take [address] (ULTRAM) 50 6-01 by mouth Luke s mg tablet 21:28: every 6 Medic al 35 (six) Center hours as needed for Pain. tiotropium 2016-0 Yes 18ug QD Inhale [address] (SPIRIVA) 6-01 mcg by [facility] 18 mcg 21:28: mouth via Medica l inhalation 35 inhaler Center capsule daily. montelukast Yes 10mg QD Take [address] (SINGULAIR) 6-01 by mouth Luke s 10 mg 21:28: nightly. Medical tablet 35 Center losartan Yes 100mg QD Take [address] (COZAAR) 6-01 mg by [facility] 100 MG 21:28: mouth Medical tablet 35 daily. Center insulin Yes type 2 50U QD Inject [address] glargine 6-01 diabetes Units [facility]ukes (LANTUS) 21:28: mellitus subcutaneo Medical 100 unit/mL 35 usly Center injection nightly Use as directed . insulin Yes type 2 25U Inject [address] aspart 6-01 diabetes Units [facility]ukes (NOVOLOG) 21:28: mellitus subcutaneo Medical 100 unit/mL 35 usly 3 Center injection (three) times daily before meals. ezetimibe-s Yes 1{tbl} QD Take [address] imvastatin 6-01 tablet by Luke s (VYTORIN) 21:28: mouth Medical 10-10 mg 35 daily. Center per tablet budesonide- Yes 2{puff} Q.5D Inhale [address] formoterol 6-01 puffs by Lukes (SYMBICORT) 21:28: mouth via M edical 160-4.5 35 inhaler 2 Center mcg/actuati (two) on inhaler times daily. traMADol 2015-0 Yes 50mg Take [address] (ULTRAM) 50 6-01 by mouth Luke s mg tablet 21:28: every 6 Medic al 35 (six) Center hours as needed for Pain. tiotropium 2015-0 Yes 18ug QD Inhale [address] (SPIRIVA) 6-01 mcg by [facility]ukes 18 mcg 21:28: mouth via Medica l inhalation 35 inhaler Center capsule daily. montelukast 2016-0 Yes 10mg QD Take [address] (SINGULAIR) 6-01 by mouth Luke s 10 mg 21:28: nightly. Medical tablet 35 Center losartan Yes 100mg QD Take [address] (COZAAR) 6-01 mg by [facility]ukes 100 MG 21:28: mouth Medical tablet 35 daily. Center insulin Yes type 2 50U QD Inject [address] glargine 6-01 diabetes Units [facility]ukes (LANTUS) 21:28: mellitus subcutaneo Medical 100 unit/mL 35 usly Center injection nightly Use as directed . insulin Yes type 2 25U Inject [address] aspart 6-01 diabetes Units [facility]ukes (NOVOLOG) 21:28: mellitus subcutaneo Medical 100 unit/mL 35 usly 3 Center injection (three) times daily before meals. ezetimibe-s Yes 1{tbl} QD Take [address] imvastatin 6-01 tablet by Luke s (VYTORIN) 21:28: mouth Medical 10-10 mg 35 daily. Center per tablet budesonide- Yes 2{puff} Q.5D Inhale [address] formoterol 6-01 puffs by Lukes (SYMBICORT) 21:28: mouth via M edical 160-4.5 35 inhaler 2 Center mcg/actuati (two) on inhaler times daily. traMADol Yes 50mg Take [address] (ULTRAM) 50 6-01 by mouth Luke s mg tablet 21:28: every 6 Medic al 35 (six) Center hours as needed for Pain. tiotropium Yes 18ug QD Inhale [address] (SPIRIVA) 6-01 mcg by [facility] 18 mcg 21:28: mouth via Medica l inhalation 35 inhaler Center capsule daily. montelukast Yes 10mg QD Take [address] (SINGULAIR) 6-01 by mouth Luke s 10 mg 21:28: nightly. Medical tablet 35 Center losartan Yes 100mg QD Take [address] (COZAAR) 6-01 mg by [facility] 100 MG 21:28: mouth Medical tablet 35 daily. Center insulin Yes type 2 50U QD Inject [address] glargine 6-01 diabetes Units [facility]ukes (LANTUS) 21:28: mellitus subcutaneo Medical 100 unit/mL 35 usly Center injection nightly Use as directed . insulin Yes type 2 25U Inject [address] aspart 6-01 diabetes Units [facility]ukes (NOVOLOG) 21:28: mellitus subcutaneo Medical 100 unit/mL 35 usly 3 Center injection (three) times daily before meals. ezetimibe-s Yes 1{tbl} QD Take [address] imvastatin 6-01 tablet by René robertson (VYTORIN) 21:28: mouth Medical 10-10 mg 35 daily. Center per tablet budesonide- Yes 2{puff} Q.5D Inhale [address] formoterol 6-01 puffs by Francisco (SYMBICORT) 21:28: mouth via M edical 160-4.5 35 inhaler 2 Center mcg/actuati (two) on inhaler times daily. Lantus Lantus Yes Ihsan INJECT 50 Comm on SoloStar SoloStar Martin UNITS Spir it UNDER THE - CHI SKIN EVERY St MORNING [facility]ukes BEFORE Medical BREAKFAST Center AND AT BEDTIME AT SAME TIME DAILY Acetaminoph Acetaminoph Yes Ihsan (Schedule Common en-Codeine en-Codeine Martin III Drug) Spirit #3 #3 TAKE 1 - CHI TABLET BY St MOUTH [facility] TWICE A Medical DAY Center NEEDED FOR JOINT PAIN NovoLog NovoLog Yes Ihsan INJECT 20 Co mmon Flexpen Flexpen Martin UNITS Spirit SUB-C - CHI BEFORE St EACH [facility] Anoro Anoro Yes Ihsan TAKE 1 Common Ellipta Ellipta Martin PUFF BY Spir it MOUTH - CHI EVERY DAY [facility] Atorvastati Atorvastati Yes Ihsan TAKE 1 Common n Calcium n Calcium Martin TABLET BY Spirit MOUTH AT - CHI BEDTIME [facility] Furosemide Furosemide Yes Ihsan TAKE 1 Common Martin TABLET BY Spirit MOUTH - CHI ALTERNATE St WITH 1 & [facility]ukes 1/2 TABLET Medical EVERY Center OTHER DAY Fenofibrate Fenofibrate Yes Ihsan TAKE 1 Common Martin TABLET Spirit EVERY DAY - CHI [facility] Immunizations Ordered Immunization Filled Immunization Date Status Commen ts Source Name Name Meningococcal 2016-01-[address] [facility] HiB 2016-01-[address] [facility] Meningococcal 2016-01-[address] [facility] Conjugate 00:00:00 [facility] HiB 2016-01-[address] [facility] 00:00:00 [facility] Meningococcal 2016-01-[address] [facility] Conjugate 00:00:00 [facility] HiB 2016-01-[address] [facility] 00:00:00 [facility] Meningococcal 2016-01-[address] [facility] Conjugate 00:00:00 [facility] HiB 2016-01-[address] 00:00:00 [facility] Procedures This patient has no known procedures. Plan of Care Planned Activity Planned Date Details Comments Source Future Scheduled 2022-05-09 HEPATITIS B VACCINES Met [facility] Test 12:42:48 (1 of 3 - 3-dose series) [code = HEPATITIS B VACCINES (1 of 3 - 3-dose series)] Future Scheduled 2022-05-09 COVID-19 VACCINE (#1) [facility] Test 12:42:48 [code = COVID-19 VACCINE (#1)] Future Scheduled 2022-05-09 65+ [facility] 12:42:48 VACCINE (1 - PCV) [code = 65+ PNEUMOCOCCAL VACCINE (1 - PCV)] Future Scheduled 2022-05-09 SHINGLES VACCINES (1 [facility] Test 12:42:48 of 2) [code = SHINGLES VACCINES (1 of 2)] Future Scheduled 2022-05-09 INFLUENZA VACCINE [facility] Test 12:42:48 [code = INFLUENZA VACCINE] Future Scheduled 2022-05-09 HEPATITIS B VACCINES [facility] Test 12:42:48 (1 of 3 - 3-dose series) [code = HEPATITIS B VACCINES (1 of 3 - 3-dose series)] Future Scheduled 2022-05-09 COVID-19 VACCINE (#1) [facility] Test 12:42:48 [code = COVID-19 VACCINE (#1)] Future Scheduled 2022-05-09 65+ [facility]OCOCCAL [facility] Test 12:42:48 VACCINE (1 - PCV) [code = 65+ PNEUMOCOCCAL VACCINE (1 - PCV)] Future Scheduled 2022-05-09 SHINGLES VACCINES (1 [facility] Test 12:42:48 of 2) [code = SHINGLES VACCINES (1 of 2)] Future Scheduled 2022-05-09 INFLUENZA VACCINE Method [facility] Hospital Test 12:42:48 [code = INFLUENZA VACCINE] Future Scheduled 2021-10-10 COVID-19 VACCINE (1) [facility] Test 14:34:48 [code = COVID-19 VACCINE (1)] Future Scheduled 2021-10-10 65+ PNEUMOCOCCAL [facility] Test 14:34:48 VACCINE (1 of 2 - PPSV23) [code = 65+ PNEUMOCOCCAL VACCINE (1 of 2 - PPSV23)] Future Scheduled 2021-10-10 SHINGLES VACCINES (#1) [facility] Test 14:34:48 [code = SHINGLES VACCINES (#1)] Future Scheduled 2021-10-10 INFLUENZA VACCINE [facility] Test 14:34:48 [code = INFLUENZA VACCINE] Encounters Start End Encounter Admission Attending Care Care Encounter Source Date/Time Date/Time Type Type Clinicians Facility Department ID 2021-12-05 Outpatient Luzma, [facility] [id number] Common 14:00:01 Izaiah [id number] [facility] 2021-10-04 [facility] [id number] Common 14:15:00 Izaiah [id number] [facility] 2021-10-04 [facility] [id number] Common 12:08:16 Izaiah [id number] [facility] 2020-04-20 2020-04-20 Outpatient SLICK SEBASTIAN [facility] [id number] [place] 00:00:00 00:00:[address] 2020-04-12 2020-04-13 Outpatient NEETU, [facility] [id number] [place] 00:00:00 00:00:00 CARTER [address] 2018-05-15 2018-05-15 [facility] [id number] Common 14:00:00 14:00:00 [facility] 2018-05-08 2018-05-08 [facility] [id number] Common 15:00:00 15:00:00 t [facility] 2018-05-01 2018-05-01 Outpatient Alannah Suarez [id number] Common 14:30:00 14:30:00 t [facility] Sp[facility] and [facility] 2018-04-21 2018-04-21 Outpatient Alannah Suarez [id number] Common 13:22:00 13:22:00 t [facility] Bone [facility] Sp[facility] t and Joint Joint - [facility] 2018-04-02 2018-04-02 Outpatient Alannah Suarez [id number] Common 10:30:00 10:30:00 t [facility] Sp[facility] t and Joint [facility] - [facility] Results Test Description Test Time Test Comments Results Result Comments Source SARS-COV2/RT-PCR ([facility]) 2020-01-23 21:06:00 Test Item Value Reference Range Interpretation Comme nts SARS-COV2/RT-PCR (test code = 1997128) Detected Not Detected, N egative AA SARS-COV-2 PERFORMING LAB (test code = 8409876) [facility] Results are for the detection of SARS-CoV-2 [...] copies/mL.This SARS CoV-2 test is a rapid, [id number]-fikhBK-[id number] test intended for the qualitative detection of [...] 564(g) of the Act.Fact Sheet for Healthcare Providers:https://www.Spockly/ Documents/Xpert%20Xpress%20SARS%20CoV-2/Fact%20Sheets/302-1872%69SLPT-MOV-2%20HE ALTHCARE%20PROVIDERS%20FACT%20SHEET.pdfFact Sheet for Healthcare Patients:https://www.Spockly/Documents/Xpert%20Xpress %20SARS%20CoV-2/Fact%20Sheets/302-1631%78HCNB-MVQ-2%20PATIENT%20FACT%20SHEET.pdf Performing Laboratory:[facility] [place] [address]
[2022-07-05 12:20] LABS: Absolute Lymphocytes (CBC) 1.1 K/uL (0.7-4.9); Hematocrit 35.6 % (39.6-49.0); Lymphocytes % 12.8 % (15.3-44.8); MCV 92.1 fL (80-100); MPV 8.6 fL (7.6-11.3); RBC Red Blood Cell Count 3.87 M/uL (4.33-5.43)
[2022-07-05 12:21] LABS: Protime INR 1.18
--- NOTE | 2022-07-05 12:27 | RAD REPORT ---
EXAM DESCRIPTION: RAD - Chest Single View - 07/05/2022 12:22 pm CLINICAL HISTORY: SOB COMPARISON: Chest Pa And Lat (2 Views) dated 04/06/2021; Chest Pa And Lat (2 Views) dated 03/31/2021; Chest Single View dated 04/14/2020; Chest Single View dated 01/27/2020 FINDINGS: Lines: None. Lungs: No evidence of edema or pneumonia. Pleural: No significant pleural effusions or pneumothorax. Cardiac: The heart size is within normal limits. Mediastinum: Within normal limits. Bones: No acute fractures. Other: None IMPRESSION: No acute cardiopulmonary disease.
[2022-07-05 12:33] LABS: SARS-CoV-2 Antigen Rapid Res Negative (Negative)
[2022-07-05] MEDS ORDERED: FUROSEMIDE 100 MG/10 ML VIAL IV ONE (12:46)
[2022-07-05 12:47] LABS: Albumin 3.3 g/dL (3.4-5.0); Bilirubin Direct 0.2 mg/dL (0-0.2); Bilirubin Total 0.4 mg/dL (0.2-1.0); Magnesium 1.8 mg/dL (1.8-2.4); Potassium 4.1 mmol/L (3.5-5.1); Protein, Total 7.4 g/dL (6.4-8.2)
--- NOTE | 2022-07-05 15:02 | ER ---
Nurse's Notes [facility] Name: Gonzalo Waldron Age: 86 yrs Sex: Male : 1935 Arrival Date: 07/05/2022 Time: 11:26 Bed 25 Private MD: Izaaih Segal V Diagnosis: Edema, unspecified Presentation: 07/05 11:57 Chief complaint: Patient states: Swollen legs - Office Cleaner sent pt to ER due to fluid ld1 accumulating in JENN legs. Coronavirus screen: At this time, the client does not indicate any symptoms associated with coronavirus-19. Ebola Screen: No symptoms or risks identified at this time. Initial Sepsis Screen: Does the patient meet any 2 criteria? No. Patient's initial sepsis screen is negative. Does the patient have a suspected source of infection? No. Patient's initial sepsis screen is negative. Risk Assessment: Do you want to hurt yourself or someone else? Patient reports no desire to harm self or others. Onset of symptoms was July 05, 2022. 11:57 Method Of Arrival: Ambulatory ld1 11:57 Acuity: MICAH 3 ld1 Triage Assessment: 11:58 General: Appears in no apparent distress. comfortable, Behavior is calm, cooperative, ld1 appropriate for age. Pain: Denies pain. EENT: No signs and/or symptoms were reported regarding the EENT system. Neuro: Level of Consciousness is awake, alert, obeys commands, Oriented to person, place, time, situation, Appropriate for age. Cardiovascular: Capillary refill < 3 seconds Patient's skin is warm and dry. Cardiovascular:. Respiratory: Airway is patent Respiratory effort is even, unlabored. GI: Abdomen is round non-distended. : No signs and/or symptoms were reported regarding the genitourinary system. Derm: No signs and/or symptoms reported regarding the dermatologic system. Musculoskeletal: No signs and/or symptoms reported regarding the musculoskeletal system. Musculoskeletal: Swelling present in right leg and left leg. Historical: - Allergies: 11:58 Tape; ld1 - PMHx: 11:58 Back Cancer; Prostate Cancer; Hypertension; Hyperlipidemia; Diabetes - NIDDM; COPD; ld1 RETINAL DETACHMENT; - PSHx: 11:58 Prostate; ld1 - Immunization history:: Adult Immunizations up to date, Client reports receiving the 2nd dose of the Covid vaccine. - Social history:: Smoking status: Patient denies any tobacco usage or history of. Patient/guardian denies using alcohol. Screenin:15 Abuse screen: Denies threats or abuse. Denies injuries from another. Nutritional eh3 screening: No deficits noted. Tuberculosis screening: No symptoms or risk factors identified. Fall Risk None identified. Assessment: 12:15 General: Appears in no apparent distress. comfortable, Behavior is calm, cooperative, eh3 appropriate for age. Pain: Denies pain. Neuro: Level of Consciousness is awake, alert, obeys commands, Oriented to person, place, time, situation. Cardiovascular: Capillary refill < 3 seconds Clubbing of nail beds is absent JVD is absent Patient's skin is warm and dry. Rhythm is sinus rhythm. Respiratory: Airway is patent Respiratory effort is even, unlabored, Respiratory pattern is regular, symmetrical, Breath sounds are clear bilaterally. GI: No signs and/or symptoms were reported involving the gastrointestinal system. Abdomen is round non-distended. : No signs and/or symptoms were reported regarding the genitourinary system. EENT: No signs and/or symptoms were reported regarding the EENT system. Derm: No signs and/or symptoms reported regarding the dermatologic system. Musculoskeletal: Swelling present in right leg, lateral aspect of left calf, left lateral ankle, lateral aspect of left foot, left calf, left Achilles, left heel, medial aspect of left calf, left medial ankle, medial aspect of left foot, left randolph, anterior aspect of left ankle and dorsum of left foot. 13:15 Reassessment: Patient and/or family updated on plan of care and expected duration. Pain eh3 level reassessed. Patient is alert, oriented x 3, equal unlabored respirations, skin warm/dry/pink. 14:15 Reassessment: Patient and/or family updated on plan of care and expected duration. Pain eh3 level reassessed. Patient is alert, oriented x 3, equal unlabored respirations, skin warm/dry/pink. Vital Signs: 11:57 BP 129 / 65; Pulse 93; Resp 18; Temp 97.8(O); Pulse Ox 97% on R/A; Weight 127.01 kg; ld1 Height 5 ft. 11 in. (180.34 cm); Pain 0/10; 12:15 BP 162 / 124; Pulse 87; Resp 20; Pulse Ox 98% on R/A; eh3 13:15 BP 170 / 146; Pulse 88; Resp 18; Pulse Ox 100% on R/A; eh3 14:15 BP 164 / 90; Pulse 90; Resp 18; Pulse Ox 100% on R/A; eh3 11:57 Body Mass Index 39.05 (127.01 kg, 180.34 cm) ld1 ED Course: 11:26 Patient arrived in ED. mr 11:27 Izaiah Segal MD is Private Physician. mr 11:30 Neo Merino PA is PHCP. jmm 11:30 David Hurley MD is Attending Physician. jmm 11:58 Triage completed. ld1 11:58 Arm band placed on right wrist. ld1 12:06 Inserted saline lock: 20 gauge in left antecubital area, using aseptic technique. Blood ld1 collected. 12:21 SARS RAPID Sent. iw 12:24 XRAY Chest (1 view) In Process Unspecified. EDMS 12:29 Radha Ruiz, JEFF is Primary Nurse. eh3 13:15 Patient has correct armband on for positive identification. Bed in low position. Call eh3 light in reach. Side rails up X2. Client placed on continuous cardiac and pulse oximetry monitoring. NIBP monitoring applied. Door closed. Noise minimized. Warm blanket given. 13:15 Assisted to bathroom. Assisted with urinal. eh3 15:02 Izaiah Segal MD is Referral Physician. [facility] 15:29 No provider procedures requiring assistance completed. IV discontinued, intact, eh3 bleeding controlled, No redness/swelling at site. Pressure dressing applied. Administered Medications: 12:41 Drug: Lasix (furosemide) 80 mg Route: IVP; Site: left antecubital; eh3 14:00 Follow up: Response: No adverse reaction eh3 Medication: 15:30 VIS not applicable for this client. 3 Outcome: 15:02 Discharge ordered by . [facility] 15:29 Discharged to home ambulatory. 3 15:29 Condition: stable 15:29 Discharge instructions given to patient, Instructed on discharge instructions, follow up and referral plans. Demonstrated understanding of instructions, follow-up care. 15:30 Patient left the ED. eh3 Signatures: Dispatcher [employer] EDMS Neo Merino PA PA jmm Rivera, Mary mr Jessica Morales, JEFF AGUILAR iw Tayler Carson RN RN 1 Radha Ruiz RN RN eh3 Corrections: (The following items were deleted from the chart) 13:43 12:15 BP 142 / 79; Pulse 84bpm; Resp 22bpm; Pulse Ox 96% RA; eh3 eh3 13:45 12:15 BP 150 / 91; Pulse 93bpm; Resp 22bpm; Pulse Ox 96% RA; eh3 eh3 13:45 13:15 BP 142 / 79; Pulse 84bpm; Resp 22bpm; Pulse Ox 96% RA; eh3 eh3
--- NOTE | 2022-07-05 15:03 | EDPHYS ---
Physician Documentation [facility] Name: Gonzalo Waldron Age: 86 yrs Sex: Male : 1935 Arrival Date: 07/05/2022 Time: 11:26 Bed 25 Private MD: Izaiah Segal V ED Physician David Hurley HPI: 07/05 11:44 This 86 yrs old Male presents to ER via Ambulatory with complaints of leg swelling. jmm 14:58 The patient presents with swelling. The complaints affect the right leg and left leg. jmm Onset: The symptoms/episode began/occurred gradually. Modifying factors: The symptoms are alleviated by nothing. the symptoms are aggravated by nothing. Is an 86-year-old male with history of prostate cancer, hypertension, hyperlipidemia the presents to the ED with complaints of lower extremity swelling which has been ongoing. Patient was evaluated by cardiology and advised to go to the ED for IV Lasix. Patient denies any progressively worsening shortness of breath, fever.. Historical: - Allergies: 11:58 Tape; ld1 - PMHx: 11:58 Back Cancer; Prostate Cancer; Hypertension; Hyperlipidemia; Diabetes - NIDDM; COPD; ld1 RETINAL DETACHMENT; - PSHx: 11:58 Prostate; ld1 - Immunization history:: Adult Immunizations up to date, Client reports receiving the 2nd dose of the Covid vaccine. - Social history:: Smoking status: Patient denies any tobacco usage or history of. Patient/guardian denies using alcohol. ROS: 14:58 Constitutional: Negative for fever, chills, and weight loss, Cardiovascular: Negative jmm for chest pain, palpitations, and edema, Respiratory: Negative for shortness of breath, cough, wheezing, and pleuritic chest pain. 14:58 MS/extremity: Positive for swelling. 14:58 All other systems are negative. Exam: 14:58 Constitutional: This is a well developed, well nourished patient who is awake, alert, jmm and in no acute distress. Head/Face: atraumatic. Eyes: EOMI, no conjunctival erythema appreciated ENT: Moist Mucus Membranes Neck: Trachea midline, Supple Chest/axilla: Normal chest wall appearance and motion. Cardiovascular: Regular rate and rhythm. No edema appreciated Respiratory: Normal respirations, no respiratory distress appreciated Abdomen/GI: Non distended Back: Normal ROM Skin: General appearance color normal 14:58 Musculoskeletal/extremity: Bilateral pedal edema appreciated, full dorsalis pedis pulse appreciated, compartments are soft, neurovascular intact. 14:58 Skin: Appearance: Color: normal in color. 14:58 Neuro: Orientation: is normal, Mentation: is normal, Memory: is normal. 14:58 Psych: Behavior/mood is pleasant, cooperative. Vital Signs: 11:57 BP 129 / 65; Pulse 93; Resp 18; Temp 97.8(O); Pulse Ox 97% on R/A; Weight 127.01 kg; ld1 Height 5 ft. 11 in. (180.34 cm); Pain 0/10; 12:15 BP 162 / 124; Pulse 87; Resp 20; Pulse Ox 98% on R/A; eh3 13:15 BP 170 / 146; Pulse 88; Resp 18; Pulse Ox 100% on R/A; eh3 14:15 BP 164 / 90; Pulse 90; Resp 18; Pulse Ox 100% on R/A; eh3 11:57 Body Mass Index 39.05 (127.01 kg, 180.34 cm) ld1 MDM: 12:04 Patient medically screened. [facility] 15:00 Data reviewed: vital signs, nurses notes. Counseling: I had a detailed discussion with [facility] the patient and/or guardian regarding: the historical points, exam findings, and any diagnostic results supporting the discharge/admit diagnosis, lab results, radiology results, to return to the emergency department if symptoms worsen or persist or if there are any questions or concerns that arise at home. ED course: I discussed the patient with Dr. segal whom recommended against admission. Patient has had these symptoms chronically. Patient has no new shortness of breath. Dr. Segal will see the patient in clinic tomorrow.. 07/05 11:44 Order name: Basic Metabolic Panel; Complete Time: 12:48 [facility] 07/05 11:44 Order name: CBC with Diff; Complete Time: 12:28 [facility] 07/05 11:44 Order name: LFT's; Complete Time: 12:48 [facility] 07/05 11:44 Order name: Magnesium; Complete Time: 12:48 [facility] 07/05 11:44 Order name: NT PRO-BNP; Complete Time: 12:48 [facility] 07/05 11:44 Order name: PT-INR; Complete Time: 12:28 [facility] 07/05 11:44 Order name: Troponin HS; Complete Time: 12:48 [facility] 07/05 11:44 Order name: XRAY Chest (1 view); Complete Time: 12:28 [facility] 07/05 11:44 Order name: EKG; Complete Time: 11:45 [facility] 07/05 11:44 Order name: Cardiac monitoring; Complete Time: 12:43 [facility] 07/05 11:44 Order name: EKG - Nurse/Tech; Complete Time: 12:43 [facility] 07/05 12:05 Order name: SARS RAPID; Complete Time: 12:48 [facility] 07/05 11:44 Order name: IV Saline Lock; Complete Time: 12:06 [facility] 07/05 11:44 Order name: Labs collected and sent; Complete Time: 12:06 [facility] 07/05 11:44 Order name: O2 Per Protocol; Complete Time: 12:21 [facility] 07/05 11:44 Order name: O2 Sat Monitoring; Complete Time: 12:30 [facility] Administered Medications: 12:41 Drug: Lasix (furosemide) 80 mg Route: IVP; Site: left antecubital; 3 14:00 Follow up: Response: No adverse reaction eh3 Disposition Summary: 07/05/22 15:02 Discharge Ordered Location: Home [facility] Condition: Stable [facility] Diagnosis - Edema, unspecified [facility] Followup: [facility] - With: Izaiah Segal MD - When: Tomorrow - Reason: Recheck today's complaints, Continuance of care, Re-evaluation by your physician Discharge Instructions: - Discharge Summary Sheet [facility] - Peripheral Edema [facility] Forms: - Medication Reconciliation Form [facility] - Thank You Letter [facility] - Antibiotic Education [facility] - Prescription Opioid Use [facility] Signatures: Dispatcher [employer] EDMS Neo Merino PA PA jmm Tayler Carson, RN RN ld1 Radha Ruiz, RN RN eh3 Corrections: (The following items were deleted from the chart) 14:58 11:44 This 86 yrs old Male presents to ER via Ambulatory with complaints of Dr Gabriel. jmmjmm 15:01 14:31 Extrem Venous W Compression Rick+US.RAD.BRZ ordered. EDMS EDMS
[2022-07-05 15:55] VITALS: TEMP 97.8
[2022-07-05 15:58] VITALS: O2SAT 100
[2022-07-05 15:59] VITALS: BP 164/90
== END 2022-07-05 15:30 | disposition home or self-care (01) ==
LOC: ER 11:23
DX: R60.0 Localized edema (principal); I10 Essential (primary) hypertension; J44.9 Chronic obstructive pulmonary disease, unspecified; Z91.048 Other nonmedicinal substance allergy status; Z20.822 Contact with and (suspected) exposure to COVID-19
CPT/HCPCS: 36415; 71045; 80048; 80076; 83735; 83880; 84484; 85025; 85610; 87811; 96374; 99284

== ENCOUNTER 2022-12-23 11:42 | Inpatient (IN) | payer OTHER ==
--- OUTSIDE RECORDS SUMMARY | 2022-12-23 11:48 | XMS REPORT | Continuity of Care Document ---
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 00:00: Medica l 00 Center Thrombocyt Thrombocyt Disease Active [facility]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 5-17 [facility] Medical 00 Center ARF (acute ARF (acute Disease Active C [facility] renal renal 5-16 kes failure) failure) 00:00: Medica l 00 Center 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 01-22 Leila kes c c 00:00: 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) Right Right Problem Active Common sciatic sciatic Spirit nerve pain nerve pain - [facility] Morbid Morbid Problem Active Common obesity obesity Spirit due to due to [facility] excess excess St calories [facility] Other Other Problem Active Common chronic chronic Spirit pain pain - [facility] Pain, Pain, Diagnosis Active Common joint, joint, Spirit knee, left knee, left - [facility] Pain in Pain in Diagnosis Active Commo n right knee right knee Sp doris - [facility] Primary Primary Diagnosis Active Commo n osteoarthr osteoarthr Sp doris itis of itis of [facility] left knee left knee [facility] Primary Primary Diagnosis Active Commo n osteoarthr osteoarthr Sp doris itis of itis of [facility] right knee right knee [facility] Sciatica, Sciatica, Problem Active Com mon left side left side Spir it - [facility] COPD COPD Disease Active [facility] St (chronic (chronic [facility] obstructiv obstructiv Me dical e e Center pulmonary pulmonary disease) disease) Hypertensi Hypertensi Disease Active C [facility] on on [facility] Cancer Cancer Disease Active Overview: [facility] St Formattin kes g of this Medical note Center might be different from the original. prostate Diabetes Diabetes Disease Active [facility] S t mellitus mellitus [facility] Arthritis Arthritis Disease Active Overview: [facility] St Formattin [facility] g of this Medical note [place] might be different from the original. back Allergies, Adverse Reactions, Alerts This patient has no known allergies or adverse reactions. Social History Social Habit Start Date Stop Date Quantity Comments Source History of Cigarette Smoker [facility] t tobacco use Hospital History SDOH [facility]ist Alcohol Frequency Hospita l History SDOH [facility] Alcohol Std Hospital Drinks History SDVT [facility] Alcohol Binge Hospital Tobacco use and 2020-04-12 2020-04-12 Smokeless tobacco Me thodist exposure 00:00:00 00:00:00 non-user Hospital Alcohol Comment 2020-04-12 2020-04-12 occ Confucianist 00:00:00 00:00:00 Hospital Alcohol intake 2016-01-23 2016-01-23 Current [facility] es 00:00:00 00:00:00 non-drinker of Medical Ce nter alcohol (finding) Sex Assigned At [birth year] [facility] 00:00:00 [facility]:00 [facility] Center Smoking Status Start Date Stop Date Source Ex-smoker 2020-04-12 00:00:00 2020-04-12 00:00:00 [facility] Medications Ordered Filled Start Stop Current Ordering Indication Dosage Frequency Signature Comments Components Source Medication Medication Date Date Medication? Clinician (SIG) Name Name insulin 2020-0 Yes 25U [id number] Inject 25 Methodi ASPART 8-[id number] (NovoLOG) 13:08: 3D under the [...] Hospita tablet 16 l acetaminoph 2020-0 Yes [id number] 1{tbl} Q6H Take 1 M ethodi en-codeine [...] with l dinner. insulin 2020-0 Yes 25U [id number] Inject 25 [facility] ASPART 8-[id number] (NovoLOG) 13:08: 3D under the [...] Hospita tablet 16 l acetaminoph 2020-0 Yes [id number] 1{tbl} Q6H Take 1 M ethodi en-codeine [...] with l dinner. insulin 2020-0 Yes 25U [id number] Inject 25 [facility] ASPART 8-[id number] (NovoLOG) 13:08: 3D under the [...] Hospita tablet 16 l acetaminoph 2020-0 Yes [id number] 1{tbl} Q6H Take 1 M ethodi en-codeine [...] with l dinner. insulin 2020-0 Yes 25U [id number] Inject 25 [facility] ASPART 8-[id number] (NovoLOG) 13:08: 3D under the [...] Hospita tablet 16 l acetaminoph 2020-0 Yes [id number] 1{tbl} Q6H Take 1 M ethodi en-codeine [...] Hospita capsule 16 daily with l dinner. montelukast Yes 10mg QD Take [address] (SINGULAIR) 601 by mouth Luke s 10 mg 21:28: nightly. Medical tablet 35 Center losartan Yes 100mg QD Take [address] (COZAAR) 6-01 mg by [facility] 100 MG 21:28: mouth Medical tablet 35 daily. Center insulin Yes type 2 50U QD Inject [address] glargine 6- diabetes Units [facility]ukes (LANTUS) 21:28: mellitus subcutaneo Medical 100 unit/mL 35 usly Center injection nightly Use as directed . insulin Yes type 2 25U Inject [address] aspart 6 diabetes Units [facility]ukes (NOVOLOG) 21:28: mellitus subcutaneo Medical 100 unit/mL 35 usly 3 Center injection (three) times daily before meals. ezetimibe-s Yes 1{tbl} QD Take [address] imvastatin 6- tablet by Luke s (VYTORIN) 21:28: mouth Medical 10-10 mg 35 daily. Center per tablet budesonide- Yes 2{puff} Q.5D Inhale [address] formoterol 6- puffs by Lukes (SYMBICORT) 21:28: mouth via M edical 160-4.5 35 inhaler 2 Center mcg/actuati (two) on inhaler times daily. traMADol Yes 50mg Take [address] (ULTRAM) 50 6 by mouth Luke s mg tablet 21:28: every 6 Medic al 35 (six) Center hours as needed for Pain. tiotropium Yes 18ug QD Inhale [address] (SPIRIVA) 6- mcg by [facility]ukes 18 mcg 21:28: mouth via Medica l inhalation 35 inhaler Center capsule daily. montelukast Yes 10mg QD Take [address] (SINGULAIR) 6-01 by mouth Luke s 10 mg 21:28: nightly. Medical tablet 35 [place] losartan Yes 100mg QD Take 100 CHI [...] 10 mg 21:28: nightly. Medical tablet 35 [place] losartan Yes 100mg QD Take [address] (COZAAR) 6-01 mg by [facility]ukes 100 MG 21:28: mouth Medical tablet 35 daily. [place] insulin Yes type 2 50U QD Inject [address] glargine 6-01 diabetes Units [facility]ukes (LANTUS) 21:28: mellitus subcutaneo Medical 100 unit/mL 35 usly Center injection nightly Use as directed . insulin 2016-0 Yes type 2 25U Inject [address] aspart 6-01 diabetes Units [facility]ukes (NOVOLOG) 21:28: mellitus subcutaneo Medical 100 unit/mL 35 usly 3 Center injection (three) times daily before meals. ezetimibe-s 2016- Yes 1{tbl} QD Take [address] imvastatin 6-01 tablet by [place] s (VYTORIN) 21:28: mouth Medical 10-10 mg 35 daily. Center per tablet budesonide- 2016- Yes 2{puff} Q.5D Inhale [address] formoterol 6-01 puffs by Lukes (SYMBICORT) 21:28: mouth via M edical 160-4.5 35 inhaler 2 Center mcg/actuati (two) on inhaler times daily. traMADol Yes 50mg Take [address] (ULTRAM) 50 6-01 by mouth Luke s mg tablet 21:28: every 6 Medic al 35 (six) Center hours as needed for Pain. tiotropium 2015- Yes 18ug QD Inhale [address] (SPIRIVA) 6-01 mcg by Lukes 18 mcg 21:28: mouth via Medica l inhalation 35 inhaler Center capsule daily. montelukast 2015-0 Yes 10mg QD Take [address] (SINGULAIR) 6-01 by mouth Luke s 10 mg 21:28: nightly. Medical tablet 35 Center losartan 0 Yes 100mg QD Take [address] (COZAAR) 6-01 mg by [facility]ukes 100 MG 21:28: mouth Medical tablet 35 daily. Center insulin 2016-0 Yes type 2 50U QD Inject [address] glargine 6-01 diabetes Units [facility]ukes (LANTUS) 21:28: mellitus subcutaneo Medical 100 unit/mL 35 usly Center injection nightly Use as directed . insulin 2016-0 Yes type 2 25U Inject [address] aspart 6-01 diabetes Units [facility]ukes (NOVOLOG) 21:28: mellitus subcutaneo Medical 100 unit/mL 35 usly 3 Center injection (three) times daily before meals. ezetimibe-s 2015-0 Yes 1{tbl} QD Take 1 CH I [...] injection (three) times daily before meals. ezetimibe-s 2015- Yes 1{tbl} QD Take 1 [...] mouth Medical tablet 35 daily. Center insulin 0 Yes type 2 50U QD Inject [address] glargine 6-01 diabetes Units [facility]ukes (LANTUS) 21:28: mellitus subcutaneo Medical 100 unit/mL 35 usly Center injection nightly Use as directed . insulin Yes type 2 25U Inject [address] aspart 6-01 diabetes Units [facility]ukes (NOVOLOG) 21:28: mellitus subcutaneo Medical 100 unit/mL 35 usly 3 Center injection (three) times daily before meals. ezetimibe-s 0 Yes 1{tbl} QD Take [address] imvastatin 6-01 tablet by Luke s (VYTORIN) 21:28: mouth Medical 10-10 mg 35 daily. Center per tablet budesonide- 2015-0 Yes 2{puff} Q.5D Inhale [address] [...] l inhalation 35 inhaler Center capsule daily. Fenofibrate Fenofibrate Yes Ihsan TAKE 1 Common Martin TABLET Spirit EVERY DAY - CHI [facility] Lantus Lantus Yes Ihsan INJECT 50 Comm on SoloStar SoloStar Martin UNITS Spir it UNDER THE - CHI SKIN EVERY St MORNING [facility]ukes BEFORE Medical BREAKFAST Center AND AT BEDTIME AT SAME TIME DAILY Acetaminoph Acetaminoph Yes Ihsan (Schedule Common en-Codeine en-Codeine Martin III Drug) Spirit #3 #3 TAKE 1 - CHI TABLET BY St MOUTH [facility] TWICE A Medical DAY Center NEEDED FOR JOINT PAIN NovoLog NovoLog Yes Ihsan INJECT 20 Co mmon Flexpen Flexpen Martin UNITS Spirit SUB-C - CHI BEFORE [facility] Anoro Anoro Yes Ihsan TAKE 1 Common Ellipta Ellipta Martin PUFF BY Spir it MOUTH - CHI EVERY DAY [facility] Atorvastati Atorvastati Yes Ihsan TAKE 1 Common n Calcium n Calcium Martin TABLET BY Spirit MOUTH AT - CHI BEDTIME [facility] Furosemide Furosemide Yes Ihsan TAKE 1 Common Martin TABLET BY Spirit MOUTH - CHI ALTERNATE St WITH 1 & [facility]ukes 1/2 TABLET Medical EVERY Center OTHER DAY Immunizations Ordered Immunization Filled Immunization Date Status Commen ts Source Name Name Meningococcal 2016-01-[address] [facility] Conjugate 00:00:00 [facility] HiB 2016-01-[address] [facility] 00:00:00 [facility] Meningococcal 2016-01-[address] [facility] Conjugate 00:00:00 [facility] HiB 2016-01-[address] [facility] 00:00:00 [facility] Meningococcal 2016-01-[address] [facility] Conjugate 00:00:00 [facility] HiB 2016-01-[address] [facility] 00:00:00 [facility] Meningococcal 2016-01-[address] [facility] Conjugate 00:00:00 [facility] HiB 2016-01-[address] 00:00:00 [facility] Meningococcal 2016-01-[address] [facility] Conjugate 00:00:00 [facility] HiB 2016-01-[address] [facility] 00:00:00 Medical [place] Meningococcal 2016-01-[address] [facility] Conjugate 00:00:00 [facility] 2016-01-[address] [facility] 00:[facility] Medical Center Procedures This patient has no known procedures. Plan of Care Planned Activity Planned Date Details Comments Source Future Scheduled 2022-12-13 COVID-19 VACCINE (#1) [facility] Test 22:37:49 [code = COVID-19 VACCINE (#1)] Future Scheduled 2022-12-13 65+ [facility] 22:37:49 VACCINE (1 - PCV) [code = 65+ PNEUMOCOCCAL VACCINE (1 - PCV)] Future Scheduled 2022-12-13 SHINGLES VACCINES (1 Met [facility] Test 22:37:49 of 2) [code = SHINGLES VACCINES (1 of 2)] Future Scheduled 2022-12-13 INFLUENZA VACCINE Method [facility] Test 22:37:49 [code = INFLUENZA VACCINE] Future Scheduled 2022-05-09 HEPATITIS B VACCINES Met [facility] Test 12:42:48 (1 of 3 - 3-dose series) [code = HEPATITIS B VACCINES (1 of 3 - 3-dose series)] Future Scheduled 2022-05-09 COVID-19 VACCINE (#1) [facility] Test 12:42:48 [code = COVID-19 VACCINE (#1)] Future Scheduled 2022-05-09 65+ [facility]CCAL [facility] Test 12:42:48 VACCINE (1 - PCV) [code = 65+ PNEUMOCOCCAL VACCINE (1 - PCV)] Future Scheduled 2022-05-09 SHINGLES VACCINES (1 Met [facility] Test 12:42:48 of 2) [code = SHINGLES VACCINES (1 of 2)] Future Scheduled 2022-05-09 INFLUENZA VACCINE Method [facility] Test 12:42:48 [code = INFLUENZA VACCINE] Future Scheduled 2022-05-09 HEPATITIS B VACCINES Met [facility] Test 12:42:48 (1 of 3 - 3-dose series) [code = HEPATITIS B VACCINES (1 of 3 - 3-dose series)] Future Scheduled 2022-05-09 COVID-19 VACCINE (#1) [facility] Test 12:42:48 [code = COVID-19 VACCINE (#1)] Future Scheduled 2022-05-09 65+ [facility]AL [facility] Test 12:42:48 VACCINE (1 - PCV) [code = 65+ PNEUMOCOCCAL VACCINE (1 - PCV)] Future Scheduled 2022-05-09 SHINGLES VACCINES (1 Met [facility] Test 12:42:48 of 2) [code = SHINGLES VACCINES (1 of 2)] Future Scheduled 2022-05-09 INFLUENZA VACCINE Method [facility] Hospital Test 12:42:48 [code = INFLUENZA VACCINE] Future Scheduled 2021-10-10 COVID-19 VACCINE (1) Met [facility] Test 14:34:48 [code = COVID-19 VACCINE (1)] Future Scheduled 2021-10-10 65+ [facility]OCOCCAL [facility] Test 14:34:48 VACCINE (1 of 2 - PPSV23) [code = 65+ PNEUMOCOCCAL VACCINE (1 of 2 - PPSV23)] Future Scheduled 2021-10-10 SHINGLES VACCINES (#1) [facility] Test 14:34:48 [code = SHINGLES VACCINES (#1)] Future Scheduled 2021-10-10 INFLUENZA VACCINE Method [facility] Test 14:34:48 [code = INFLUENZA VACCINE] Encounters Start End Encounter Admission Attending Care Care Encounter Source Date/Time Date/Time Type Type Clinicians Facility Department ID 2022-09-06 Outpatient Luzma, STLMLC STLC [id number] Common 11:22:00 Izaiah [facility] 2022-09-04 Outpatient Luzma, STLMLC STLC [id number] Common 15:31:00 Izaiah [id number] [facility] 2021-12-05 Outpatient Luzma, STLMLC STLC [id number] Common 14:00:01 Izaiah [id number] [facility] 2021-10-04 Outpatient Luzma, STLMLC STLC [id number] Common 14:15:00 Izaiah [id number] [facility] 2021-10-04 Outpatient Luzma, STLMLC STLC [id number] Common 12:08:16 Izaiah [id number] [facility] 2020-04-20 2020-04-20 Outpatient SLICK SEBASTIAN [facility] [id number] [place] 00:00:00 00:00:[address] 2020-04-12 2020-04-13 Outpatient NEETU [facility] [id number] [place] 00:00:00 00:00:00 CARTER [address] 2018-05-15 2018-05-15 Outpatient [facility] [place] [id number] Common 14:00:00 14:00:00 t [facility] - [facility] 2018-05-08 2018-05-08 Outpatient [place] [place] [id number] Common 15:00:00 15:00:00 t [facility] Sp[facility] t and Joint Joint - [facility] 2018-05-01 2018-05-01 Outpatient [facility] [place] [id number] Common 14:30:00 14:30:00 t [facility] Sp[facility] t and Joint Joint - [facility] 2018-04-21 2018-04-21 Outpatient [facility] [place] [id number] Common 13:22:00 13:22:00 t [facility] Sp[facility] t and Joint Joint - [facility] 2018-04-02 2018-04-02 Outpatient [place] [place] [id number] Common 10:30:00 10:30:00 t [facility] Sp[facility] t and Joint Joint - [facility] Results Test Description Test Time Test Comments Results Result Comments Source SARS-COV2/RT-PCR ([facility]) 2020-01-23 21:06:00 Test Item Value Reference Range Interpretation Comme nts SARS-COV2/RT-PCR (test code = 9425312) Detected Not Detected, N egative AA SARS-COV-2 PERFORMING LAB (test code = 9076861) [facility] Results are for the detection of SARS-CoV-2 [...] copies/mL.This SARS CoV-2 test is a rapid, enay-wwhsLX-TXK test intended for the qualitative detection of [...] 564(g) of the Act.Fact Sheet for Healthcare Providers:https://www.Alereon/ Documents/Xpert%20Xpress%20SARS%20CoV-2/Fact%20Sheets/3023802%17PXHB-UOM-9%20HE ALTHCARE%20PROVIDERS%20FACT%20SHEET.pdfFact Sheet for Healthcare Patients:https://www.Alereon/Documents/Xpert%20Xpress %20SARS%20CoV-2/Fact%20Sheets/3023801%65EWJD-DYT-3%20PATIENT%20FACT%20SHEET.pdf Performing Laboratory:[facility] [place] [address]
[2022-12-23 12:39] LABS: Absolute Lymphocytes (CBC) 0.5 K/uL (0.7-4.9); Hematocrit 29.6 % (39.6-49.0); Lymphocytes % 2.2 % (15.3-44.8); MCV 91.8 fL (80-100); MPV 9.3 fL (7.6-11.3); RBC Red Blood Cell Count 3.23 M/uL (4.33-5.43)
[2022-12-23 12:50] LABS: Protime INR 1.46
[2022-12-23] MEDS ORDERED: CEFTRIAXONE 1000 MG/VIAL ONE (12:58)
[2022-12-23] MEDS ORDERED: METOPROLOL TARTRATE 5 MG/5 ML INJ IV ONE ×2 (12:58→16:22)
[2022-12-23] MEDS ORDERED: DIGOXIN 0.25 MG/ML AMP ONE ×2 (12:58→21:29)
[2022-12-23] MEDS ORDERED: NA CHLORIDE 0.9% 1,000 ML ONE ×2 (12:58→21:30)
[2022-12-23] MEDS ORDERED: FAMOTIDINE 20 MG/2 ML VIAL IV ONE (12:58)
[2022-12-23] MEDS ORDERED: NA CHLORIDE 0.9% 50 ML ONE (12:59)
[2022-12-23 14:05] LABS: Albumin 1.8 g/dL (3.4-5.0); Bilirubin Direct 0.7 mg/dL (0-0.2); Magnesium 2.2 mg/dL (1.6-2.4); Potassium 4.7 mEq/L (3.5-5.1); Protein, Total 6.8 g/dL (6.4-8.2); Thyroid Stimulating Hormone 0.312 uIU/mL (0.358-3.740); Troponin High Sensitivity 43.7 pg/mL (<58.9)
--- NOTE | 2022-12-23 14:14 | RAD REPORT ---
[facility] CLINICAL HISTORY: COUGH COMPARISON: Chest Single View dated 12/05/2022; Chest Single View dated 07/05/2022; Chest Pa And Lat (2 Views) dated 04/06/2021; Chest Pa And Lat (2 Views) dated 03/31/2021 TECHNIQUE: Portable AP view of the chest. FINDINGS: Right basilar airspace opacity and small effusion. No pneumothorax or left effusion. The c ardiomediastinal contours are unremarkable. IMPRESSION: Right basilar airspace opacity and small effusion. Findings raise concern for pneumonia.
[2022-12-23 14:39] LABS: Blood Morphology Comment NOT SEEN (NOT SEEN); Platelet Estimate INCR; White Blood Cell Scan OK (OK)
--- NOTE | 2022-12-23 14:56 | RAD REPORT ---
EXAM DESCRIPTION: CT - Head C Spine Cap Wo Con - 12/23/2022 1:58 pm CLINICAL HISTORY: DIZZINESS COMPARISON: Abdomen Pelvis Wo Contrast dated 08/15/2022 TECHNIQUE: Head, cervical spine, chest, abdomen, and pelvis CT images were obtained without intraven ous administration of iodine contrast. Multiplanar reformats were generated and reviewed. All CT scans are performed using dose optimization technique as appropriate and may include automated exposure control or mA/KV adjustment according to patient size. FINDINGS: CT HEAD: No intracranial hemorrhage, mass effect, or edema. No evidence of acute territorial infarct. No midli ne shift or abnormal fluid collection. The ventricles are normal in caliber and configuration for age . Basal cisterns are patent. Moderate left maxillary sinus mucosal thickening with an air-fluid level No acute skull fracture. CT CERVICAL SPINE: No acute cervical spine fracture or subluxation. Vertebral body heights are well maintained. Facet rossana ints are normal in alignment. No hyperattenuating canal hematoma. Prominent osteophytosis and ossific ation of the anterior longitudinal ligament. Prevertebral and paraspinous soft tissues are unremarkab le. CT CHEST: No pneumothorax or pulmonary contusion. Small bilateral pleural effusions. . No mediastinal hematoma and the aorta and pulmonary arteries are unremarkable. No chest will mass or abnormal axillary findin g. No displaced rib fracture or other significant bony finding. CT ABDOMEN/ PELVIS: No evidence of traumatic injury to solid abdominal viscera. Gallbladder is contracted over multiple s tones. Calcified ovoid 2.2 centimeter lesion along the superior aspect of the spleen, could represent a small resolved hematoma or loculated hemangioma. No bowel injury or significant finding. Colonic d iverticulosis P No free air, free fluid or abnormal fat stranding. No urinary bladder abnormality. No significant bony finding. Sclerotic lesion adjacent to the endplates in the midthoracic spine is stable. IMPRESSION: No acute traumatic findings of the head and neck. Small bilateral layering pleural effusions. No acute traumatic CT Chest finding. No acute traumatic CT Abdomen and Pelvis finding. Incidentally noted cholelithiasis and colonic dive rticulosis.
--- NOTE | 2022-12-23 15:11 | ER ---
Nurse's Notes [facility] Name: Gonzalo Waldron Age: 86 yrs Sex: Male : 1935 Arrival Date: 12/23/2022 Time: 11:42 Bed 23 Private MD: Diagnosis: Weakness;Persistent atrial fibrillation-NEW ONSET WITH RVR;Pneumonia due to other specified bacteria-RIGHT LOWER LOBE;Type 2 diabetes mellitus with hyperglycemia;Morbid (severe) obesity with alveolar hypoventilation;Pleural effusion, not elsewhere classified;Acute kidney failure, unspecified;Do not resuscitate;Anemia, unspecified;UTI/ Urinary tract infection, site not specified Presentation: 12/23 12:03 Chief complaint: EMS states: patient brought to ED by EMS. patient drank "cleanse total db body presser" accidentally. patient states he was thirsty. Glucose was high for EMS. Patient given 4mg IV Zofran by EMS. HR in 140s for EMS. Coronavirus screen: Vaccine status: Patient reports receiving the 2nd dose of the covid vaccine. Client denies travel out of the [place] in the last 14 days. At this time, the client does not indicate any symptoms associated with coronavirus-19. Ebola Screen: Patient negative for fever greater than or equal to 101.5 degrees Fahrenheit, and additional compatible Ebola Virus Disease symptoms Patient denies exposure to infectious person. Patient denies travel to an Ebola-affected area in the 21 days before illness onset. No symptoms or risks identified at this time. Initial Sepsis Screen: Does the patient meet any 2 criteria? HR > 90 bpm. Does the patient have a suspected source of infection? No. Patient's initial sepsis screen is negative. Risk Assessment: Do you want to hurt yourself or someone else? Patient reports no desire to harm self or others. Onset of symptoms was December 23, 2022. 12:03 Method Of Arrival: EMS: [facility] db 12:03 Acuity: MICAH 2 db Triage Assessment: 12:40 General: Appears distressed, uncomfortable, Behavior is cooperative. db Historical: - Allergies: 12:40 Tape; db - PMHx: 12:40 Back Cancer; Hypertension; Prostate Cancer; RETINAL DETACHMENT; Diabetes - NIDDM; db Hyperlipidemia; COPD; kidney failure; - PSHx: 12:40 prostate; db - Immunization history:: Adult Immunizations unknown. - Social history:: Smoking status: Patient denies any tobacco usage or history of. Screenin:49 [facility] ED Fall Risk Assessment (Adult) History of falling in the last 3 months, db including since admission Yes- fall prone (multiple falls) (3 pts) Confusion or Disorientation Yes (5 pts) Intoxicated or Sedated No (0 pts) Impaired Gait Yes (1 pt) Mobility Assist Device Used Yes (1 pt) Altered Elimination No (0 pt) Score/Fall Risk Level 3 or more points = High Risk Oriented to surroundings, Maintained a safe environment, Hourly rounding (assess needs \\T\\ fall precautionary measures) done. Abuse screen: Denies threats or abuse. Denies injuries from another. Nutritional screening: No deficits noted. Tuberculosis screening: No symptoms or risk factors identified. Assessment: 12:34 Reassessment: Patient appears in no apparent distress at this time. Patient and/or db family updated on plan of care and expected duration. Pain level reassessed. Patient is alert, oriented x 3, equal unlabored respirations, skin warm/dry/pink. Pain: Complains of pain in abdomen. 12:44 Reassessment: glucose 490. db 12:44 Reassessment: patients states she wants me to hold on giving patient any db medications because patient is on hospice. patient states she is not sure what she wants. Patient states she wants to discuss the medications and the plan of care with patient's hospice nurse prior to any administration of medications. At this time she does not want us to give the patient any medications. Will notify Dr. Hurley. 13:50 Reassessment: patient in CT. db 15:53 Reassessment: patient changed. Cleaned bowel movement. noted redness and bruising to db buttocks . Pad placed on red area. 16:30 Reassessment: wound dressing placed on patient bottom. Noted some oozing from wound. db 17:30 Reassessment: Called poison control for patient. Case # [id number]. db 17:38 Reassessment: Patient appears in no apparent distress at this time. Patient and/or db family updated on plan of care and expected duration. Pain level reassessed. Patient is alert, oriented x 3, equal unlabored respirations, skin warm/dry/pink. Patient states feeling better. Neuro: Level of Consciousness is awake, alert, obeys commands, Oriented to person, place, time, situation. Cardiovascular: Rhythm is atrial fibrillation with rapid ventricular response. Respiratory: Airway is patent Respiratory effort is even, unlabored, Respiratory pattern is regular, symmetrical. 18:18 Reassessment: patient glucose rechecked, glucose reading 241. db Vital Signs: 12:03 BP 98 / 80; Pulse 146; Resp 20; Temp 97.8; Pulse Ox 96% on R/A; db 13:15 BP 131 / 77; Pulse 141; Resp 16; Pulse Ox 98% on 2 lpm NC; db 13:25 BP 114 / 71; Pulse 125; Resp 18; Pulse Ox 98% on 2 lpm NC; db 13:30 BP 116 / 64; Pulse 124; Resp 16; Pulse Ox 95% on 2 lpm NC; db 14:03 BP 121 / 69; Pulse 120; Resp 16; Pulse Ox 98% on 2 lpm NC; db 14:15 BP 122 / 78; Pulse 119; Resp 20; Pulse Ox 99% on 2 lpm NC; db 14:30 BP 136 / 71; Pulse 100; Resp 20; Pulse Ox 99% on 2 lpm NC; db 16:40 BP 111 / 65; Pulse 124; Resp 18; Pulse Ox 100% on 2 lpm NC; db 17:00 BP 117 / 66; Pulse 90; Resp 20; Pulse Ox 100% ; Weight 102.06 kg; Height 5 ft. 11 in. ; db Pain 4/10; 17:30 BP 118 / 76; Pulse 117; Resp 16; Pulse Ox 100% on R/A; db 18:20 BP 149 / 43; Pulse 95; Resp 20; Pulse Ox 100% on 2 lpm NC; db 17:00 Body Mass Index 31.38 (102.06 kg, 180.34 cm) db 17:00 Pain Scale: Adult db Vitals: 16:40 Cardiac Rhythm Assessment Irregular Atrial fibrillation W/rapid ventricular response. db ED Course: 11:55 Patient arrived in ED. eb 11:58 David Hurley MD is Attending Physician. ross 12:15 Maintain EMS IV. Dressing intact. Site clean \\T\\ dry. Gauge \\T\\ site: 20 G left fore arm. db Oxygen administration via nasal cannula \\T\\ 2L/min Response to oxygen therapy: symptoms improved. 12:20 Missed attempt(s): 20 gauge in right Bleeding controlled, band aid applied, catheter db tip intact. 12:24 Abimbola Dos Santos, RN is Primary Nurse. db 12:25 Inserted saline lock: 20 gauge in right antecubital area, using aseptic technique. db Blood collected. 12:40 Triage completed. db 12:41 Arm band placed on Patient placed in an exam room. db 13:14 XRAY Chest (1 view) In Process Unspecified. EDMS 14:00 CT Traumagram (Head C Spine CAP wo con) In Process Unspecified. EDMS 14:50 Patient has correct armband on for positive identification. Bed in low position. Call db light in reach. Side rails up X2. Client placed on continuous cardiac and pulse oximetry monitoring. NIBP monitoring applied. Warm blanket given. 15:05 Izaiah Segal MD is Hospitalizing Provider. [facility] 15:45 Santana cath inserted, using sterile technique, 16 Fr., by nm, balloon inflated, urine db specimen collected. Patient tolerated well. 17:40 Wound care: to decubitus located on buttocks was cleaned with dressed with wound pad. db 18:23 No provider procedures requiring assistance completed. Patient admitted, IV remains in db place. Administered Medications: 13:12 Drug: NS 0.9% IV 1000 ml Route: IV; Rate: 1 bolus; Site: right antecubital; db 13:30 Follow up: Response: No adverse reaction; IV Status: Completed infusion; IV Intake: db 1000ml 13:15 Drug: Famotidine IVP 20 mg Route: IVP; Site: right antecubital; db 18:27 Follow up: Response: No adverse reaction db 13:15 Drug: Digoxin IVP 0.5 mg {Note: BP 110/60.} Route: IVP; Site: right antecubital; db 18:27 Follow up: Response: No adverse reaction db 13:20 Drug: Rocephin IV 1 grams Route: IV; Rate: per protocol; Site: right antecubital; db 13:45 Follow up: IV Status: Completed infusion; IV Intake: 50ml db 13:22 Drug: Metoprolol IVP 2.5 mg Route: IVP; Site: right antecubital; db 18:27 Follow up: Response: No adverse reaction db 14:10 Drug: Metoprolol IVP 2.5 mg Route: IVP; Site: right antecubital; db 16:40 Drug: Insulin Regular Human IVP 8 units {Co-Signature: ld1 (Tayler Collier RN).} Route: db IVP; Site: right antecubital; 17:11 Follow up: Response: No adverse reaction; glucose [address] Hurley db 16:41 Drug: Metoprolol PO 50 mg Route: PO; db 18:25 Follow up: Response: No adverse reaction db 16:50 Drug: Piperacillin-Tazobactam IVPB 3.375 grams Route: IVPB; Infused Over: 60 mins; db Site: left antecubital; 17:20 Follow up: Response: No adverse reaction; IV Status: Completed infusion; IV Intake: db 100ml 16:50 Drug: Metoprolol IVP 2.5 mg Route: IVP; Site: right antecubital; db 18:25 Follow up: Response: No adverse reaction db 16:55 Drug: Metoprolol IVP 2.5 mg Route: IVP; Site: right antecubital; db 18:26 Follow up: Response: No adverse reaction db Medication: 18:23 VIS not applicable for this client. db Intake: 13:30 IV: 1000ml; Total: 1000ml. db 13:45 IV: 50ml; Total: 1050ml. db 17:20 IV: 100ml; Total: 1150ml. db Outcome: 15:10 Decision to Hospitalize by Provider. ross 18:23 Admitted to ER Hold. Please see [facility] for further documentation. db 18:23 Condition: stable 18:23 Instructed on the need for admit. 12/24 12:02 Patient left the ED. ko1 Signatures: Dispatcher [employer] David Zavala MD MD cha Botello, Elizabeth eb Oliver, Kathy RN RN ko1 Abimbola Dos Santos RN RN db Tayler Collier RN ld1 Corrections: (The following items were deleted from the chart) 12/23 14:12 13:15 BP 131 / 77; Pulse 141bpm; Resp 16bpm; Pulse Ox 98% RA; db db 14:12 13:25 BP 114 / 71; Pulse 125bpm; Resp 18bpm; Pulse Ox 98% RA; db db 14:12 13:30 BP 116 / 64; Pulse 124bpm; Resp 16bpm; Pulse Ox 95% RA; db db 18:18 18:18 Reassessment: patient glucose rechecked its 241 db db 18:23 14:49 [facility] ED Fall Risk Assessment (Adult) History of falling in the last 3 months, db including since admission No falls in past 3 months (0 pts) Confusion or Disorientation Yes (5 pts) Intoxicated or Sedated No (0 pts) Impaired Gait Yes (1 pt) Mobility Assist Device Used Yes (1 pt) Altered Elimination No (0 pt) Score/Fall Risk Level 3 or more points = High Risk Oriented to surroundings, Maintained a safe environment, Hourly rounding (assess needs \\T\\ fall precautionary measures) done, db
--- NOTE | 2022-12-23 15:11 | EDPHYS ---
Physician Documentation [facility] Name: Gonzalo Waldron Age: 86 yrs Sex: Male : 1935 Arrival Date: 12/23/2022 Time: 11:42 Bed 23 Private MD: ED Physician David Hurley HPI: 12/23 15:00 This 86 yrs old Male presents to ER via EMS with complaints of High Blood ross Sugar, Ingestion of cleaning supplies, Tachycardia, Nausea/Vomiting. Historical: - Allergies: 12:40 Tape; db - PMHx: 12:40 Back Cancer; Hypertension; Prostate Cancer; RETINAL DETACHMENT; Diabetes - NIDDM; db Hyperlipidemia; COPD; kidney failure; - PSHx: 12:40 prostate; db - Immunization history:: Adult Immunizations unknown. - Social history:: Smoking status: Patient denies any tobacco usage or history of. ROS: 15:01 Constitutional: Negative for fever, chills, and weight loss, Eyes: Negative for injury, ross pain, redness, and discharge, ENT: Negative for injury, pain, and discharge, Neck: Negative for injury, pain, and swelling, Abdomen/GI: Negative for abdominal pain, nausea, vomiting, diarrhea, and constipation, Back: Negative for injury and pain, : Negative for injury, bleeding, discharge, and swelling, MS/Extremity: Negative for injury and deformity, Skin: Negative for injury, rash, and discoloration, Psych: Negative for depression, anxiety, suicide ideation, homicidal ideation, and hallucinations, Allergy/Immunology: Negative for hives, rash, and allergies, Endocrine: Negative for neck swelling, polydipsia, polyuria, polyphagia, and marked weight changes, Hematologic/Lymphatic: Negative for swollen nodes, abnormal bleeding, and unusual bruising. 15:01 Cardiovascular: Positive for palpitations. 15:01 Respiratory: Positive for cough, shortness of breath, at rest. 15:01 Neuro: Positive for altered mental status, weakness. Exam: 15:01 Constitutional: This is a well developed, well nourished patient who is awake, alert, ross and in no acute distress. Head/Face: Normocephalic, atraumatic. Eyes: Pupils equal round and reactive to light, extra-ocular motions intact. Lids and lashes normal. Conjunctiva and sclera are non-icteric and not injected. Cornea within normal limits. Periorbital areas with no swelling, redness, or edema. ENT: Nares patent. No nasal discharge, no septal abnormalities noted. Tympanic membranes are normal and external auditory canals are clear. Oropharynx with no redness, swelling, or masses, exudates, or evidence of obstruction, uvula midline. Mucous membranes moist. Neck: Trachea midline, no thyromegaly or masses palpated, and no cervical lymphadenopathy. Supple, full range of motion without nuchal rigidity, or vertebral point tenderness. No Meningismus. Chest/axilla: Normal chest wall appearance and motion. Nontender with no deformity. No lesions are appreciated. Abdomen/GI: Soft, non-tender, with normal bowel sounds. No distension or tympany. No guarding or rebound. No evidence of tenderness throughout. Back: No spinal tenderness. No costovertebral tenderness. Full range of motion. Male : Normal genitalia with no discharge or lesions. Skin: Warm, dry with normal turgor. Normal color with no rashes, no lesions, and no evidence of cellulitis. Neuro: Awake and alert, GCS 15, oriented to person, place, time, and situation. Cranial nerves II-XII grossly intact. Motor strength 5/5 in all extremities. Sensory grossly intact. Cerebellar exam normal. Normal gait. Psych: Awake, alert, with orientation to person, place and time. Behavior, mood, and affect are within normal limits. 15:01 Cardiovascular: Rate: tachycardic, actual rate is 141 bpm, Rhythm: irregularly irregular, Pulses: Pulses are 4+ in bilateral radial, brachial, femoral, popliteal, posterior tibial and and dorsalis pedis arteries.. Heart sounds: normal, Edema: 2+ edema to level of left midcalf and right midcalf, JVD: is noted bilaterally. 15:01 ECG was reviewed by the Attending Physician. 15:15 ECG was reviewed by the Attending Physician. ross Vital Signs: 12:03 BP 98 / 80; Pulse 146; Resp 20; Temp 97.8; Pulse Ox 96% on R/A; db 13:15 BP 131 / 77; Pulse 141; Resp 16; Pulse Ox 98% on 2 lpm NC; db 13:25 BP 114 / 71; Pulse 125; Resp 18; Pulse Ox 98% on 2 lpm NC; db 13:30 BP 116 / 64; Pulse 124; Resp 16; Pulse Ox 95% on 2 lpm NC; db 14:03 BP 121 / 69; Pulse 120; Resp 16; Pulse Ox 98% on 2 lpm NC; db 14:15 BP 122 / 78; Pulse 119; Resp 20; Pulse Ox 99% on 2 lpm NC; db 14:30 BP 136 / 71; Pulse 100; Resp 20; Pulse Ox 99% on 2 lpm NC; db 16:40 BP 111 / 65; Pulse 124; Resp 18; Pulse Ox 100% on 2 lpm NC; db 17:00 BP 117 / 66; Pulse 90; Resp 20; Pulse Ox 100% ; Weight 102.06 kg; Height 5 ft. 11 in. ; db Pain 4/10; 17:30 BP 118 / 76; Pulse 117; Resp 16; Pulse Ox 100% on R/A; db 18:20 BP 149 / 43; Pulse 95; Resp 20; Pulse Ox 100% on 2 lpm NC; db 17:00 Body Mass Index 31.38 (102.06 kg, 180.34 cm) db 17:00 Pain Scale: Adult db MDM: 11:58 Patient medically screened. [facility] 15:03 Differential diagnosis: DKA, hyperglycemia. Data reviewed: vital signs, nurses notes, [facility] lab test result(s), EKG, radiologic studies, CT scan, plain films. Consideration of Admission/Observation Patient was admitted/placed on observation. Escalation of care including admission/observation considered. I considered the following discharge prescriptions or medication management in the emergency department Medications were administered in the Emergency Department. See MAR. Test considered but Not performed: MRI: NO BRAIN MRI. Care significantly affected by the following chronic conditions: Diabetes, Congestive Heart Failure, Cancer. Care significantly affected by the following Social Determinants of Health: Poor access to transportation, Problems related to primary support group. 12/23 12:18 Order name: Basic Metabolic Panel; Complete Time: 14:34 [facility] 12/23 12:18 Order name: CBC with Diff; Complete Time: 17:45 [facility] 12/23 12:18 Order name: LFT's; Complete Time: 14:34 [facility] 12/23 12:18 Order name: Magnesium; Complete Time: 14:34 [facility] 12/23 12:18 Order name: NT PRO-BNP; Complete Time: 14:34 [facility] 12/23 12:18 Order name: PT-INR; Complete Time: 14:06 [facility] 12/23 12:18 Order name: Troponin HS; Complete Time: 14:34 [facility] 12/23 12:18 Order name: Lipase; Complete Time: 14:34 [facility] 12/23 12:18 Order name: TSH; Complete Time: 14:34 [facility] 12/23 12:18 Order name: Urinalysis w/ reflexes; Complete Time: 17:45 [facility] 12/23 12:18 Order name: Lactate w/ 2H reflex if indic.; Complete Time: 14:06 [facility] 12/23 12:18 Order name: Blood Culture Adult (2) [facility] 12/23 12:59 Order name: Glucose, Ancillary Testing; Complete Time: 14:06 [facility] 12/23 13:17 Order name: CBC Smear Scan; Complete Time: 17:45 [facility] 12/23 17:13 Order name: Glucose, Ancillary Testing; Complete Time: 17:45 [facility] 12/23 18:34 Order name: Glucose, Ancillary Testing; Complete Time: 04:49 [facility] 12/23 20:34 Order name: Glucose, Ancillary Testing; Complete Time: 04:49 [facility] 12/23 21:35 Order name: Troponin High Sensitivity; Complete Time: 04:49 [facility] 12/24 02:40 Order name: CBC with Automated Diff; Complete Time: 04:49 [facility] 12/24 02:51 Order name: Basic Metabolic Panel; Complete Time: 04:49 [facility] 12/24 04:50 Order name: Gram Stain--Aerobic Bottle [facility] 12/24 06:25 Order name: Gram Stain--Anaerobic Bottle [facility] 12/24 06:28 Order name: Gram Stain--Anaerobic Bottle [facility] 12/24 07:48 Order name: Glucose, Ancillary Testing [facility] 12/24 07:53 Order name: Urine Culture [facility] 12/24 11:55 Order name: Glucose, Ancillary Testing [facility] 12/23 12:18 Order name: XRAY Chest (1 view); Complete Time: 14:34 [facility] 12/23 12:18 Order name: CT Traumagram (Head C Spine CAP wo con); Complete Time: 17:45 [facility] 12/24 07:56 Order name: RAD [facility] 12/23 12:18 Order name: EKG; Complete Time: 12:19 [facility] 12/23 12:18 Order name: Cardiac monitoring; Complete Time: 12:33 [facility] 12/23 12:18 Order name: EKG - Nurse/Tech; Complete Time: 12:33 ross 12/23 12:18 Order name: IV Saline Lock; Complete Time: 12:33 ross 12/23 12:18 Order name: Labs collected and sent; Complete Time: 12:33 ross 12/23 12:18 Order name: O2 Per Protocol; Complete Time: 12:32 12/23 12:18 Order name: O2 Sat Monitoring; Complete Time: 12:32 12/23 12:18 Order name: IV Saline Lock - Large Bore; Complete Time: 12:31 ross 12/23 12:56 Order name: Labs - recollect needed: recollect both blood cultures; Complete Time: 13:47eb 12/23 15:01 Order name: Misc. Order: CALL POISON CONTROL AND FOLLOW ALL RECOMEDATIONS; Complete ross Time: 18:33 12/23 15:10 Order name: Esther; Complete Time: 17:12 ross EC:01 Rate is 121 beats/min. Rhythm is irregularly irregular. QRS [place] is Normal. [place] interval ross is normal. QRS interval is normal. QT interval is normal. No Q waves. T waves are Normal. No ST changes noted. Clinical impression: Atrial Fibrillation and No evidence of ischemia. Interpreted by me. Reviewed by me. 15:15 Rate is 122 beats/min. Rhythm is irregularly irregular. QRS [place] is Normal. [place] interval ross is normal. QRS interval is normal. QT interval is normal. No Q waves. T waves are Normal. No ST changes noted. Clinical impression: Atrial Fibrillation. Interpreted by me. Reviewed by me. Administered Medications: 13:12 Drug: NS 0.9% IV 1000 ml Route: IV; Rate: 1 bolus; Site: right antecubital; db 13:30 Follow up: Response: No adverse reaction; IV Status: Completed infusion; IV Intake: db 1000ml 13:15 Drug: Famotidine IVP 20 mg Route: IVP; Site: right antecubital; db 18:27 Follow up: Response: No adverse reaction db 13:15 Drug: Digoxin IVP 0.5 mg {Note: BP 110/60.} Route: IVP; Site: right antecubital; db 18:27 Follow up: Response: No adverse reaction db 13:20 Drug: Rocephin IV 1 grams Route: IV; Rate: per protocol; Site: right antecubital; db 13:45 Follow up: IV Status: Completed infusion; IV Intake: 50ml db 13:22 Drug: Metoprolol IVP 2.5 mg Route: IVP; Site: right antecubital; db 18:27 Follow up: Response: No adverse reaction db 14:10 Drug: Metoprolol IVP 2.5 mg Route: IVP; Site: right antecubital; db 16:40 Drug: Insulin Regular Human IVP 8 units {Co-Signature: ld1 (Tayler Collier RN).} Route: db IVP; Site: right antecubital; 17:11 Follow up: Response: No adverse reaction; glucose [address] Hurley db 16:41 Drug: Metoprolol PO 50 mg Route: PO; db 18:25 Follow up: Response: No adverse reaction db 16:50 Drug: Piperacillin-Tazobactam IVPB 3.375 grams Route: IVPB; Infused Over: 60 mins; db Site: left antecubital; 17:20 Follow up: Response: No adverse reaction; IV Status: Completed infusion; IV Intake: db 100ml 16:50 Drug: Metoprolol IVP 2.5 mg Route: IVP; Site: right antecubital; db 18:25 Follow up: Response: No adverse reaction db 16:55 Drug: Metoprolol IVP 2.5 mg Route: IVP; Site: right antecubital; db 18:26 Follow up: Response: No adverse reaction db Disposition Summary: 12/23/22 15:10 Hospitalization Ordered Hospitalization Status: Inpatient Admission ross Provider: Izaiah Segal cha Condition: Fair ross Problem: new ross Symptoms: have improved ross Bed/Room Type: Standard ross Location: Telemetry/MedSurg (Inpatient)(12/24/22 11:26) keena Room Assignment: 210(12/24/22 11:26) keena Diagnosis - Weakness ross - Persistent atrial fibrillation - NEW ONSET WITH RVR ross - Pneumonia due to other specified bacteria - RIGHT LOWER LOBE ross - Type 2 diabetes mellitus with hyperglycemia ross - Morbid (severe) obesity with alveolar hypoventilation ross - Pleural effusion, not elsewhere classified ross - Acute kidney failure, unspecified ross - Do not resuscitate ross - Anemia, unspecified ross - UTI/ Urinary tract infection, site not specified ross Forms: - Medication Reconciliation Form ross - SBAR form [facility] Signatures: Dispatcher [employer] David Zavala MD MD cha Aguilar, Jose, RN RN ja1 Clarita Caballero Brandon, MD MD bs3 Abimbola Dos Santos RN RN db Tayler Collier RN ld1 Corrections: (The following items were deleted from the chart) 15:15 15:10 Telemetry/MedSurg (Inpatient) [facility] 15:15 15:10 ross 12/24 11:12/23 15:15 [facility] ER HOLD eb [facility] 12/24 11:12/23 15:15 ERHOLD- eb ja1
[2022-12-23 15:58] LABS: Specific Gravity 1.007 (1.005-1.030); Urine Bacteria >50 /HPF (<20); Urine Bilirubin NEGATIVE (Negative); Urine Blood 1+ (Negative); Urine Clarity Turbid (Clear); Urine Color Colorless (Yellow); Urine Glucose 3+ (Negative); Urine Protein NEGATIVE (Negative); Urine RBC >50 /HPF (None Seen); Urine Urobilinogen Normal (Normal); Urine WBC Clump Many /HPF (None Seen)
[2022-12-23] MEDS ORDERED: METOPROLOL TAR 50 MG TAB ONE ×2 (16:20→21:29)
[2022-12-23] MEDS ORDERED: INSULIN -REGULAR HUMAN 50 UNIT/0.5 ML ML ONE (16:21)
[2022-12-23] MEDS ORDERED: PIPERACIL/TAZO 3.375 GM VIAL IV ONE (16:22)
[2022-12-23] MEDS ORDERED: NA CHLORIDE 0.9% 100 ML ONE (16:22)
[2022-12-23 18:38] VITALS: BMI 31.4
[2022-12-23] MEDS ORDERED: ACETAMINOPHEN 500 MG TAB PO PRN (20:52)
[2022-12-23] MEDS ORDERED: ONDANSETRON 4 MG/2 ML VIAL IV PRN (20:52)
[2022-12-23] MEDS: ALBUTEROL 2.5 MG/3 ML NEB SOL NEB SCH (20:52)
[2022-12-23] MEDS: NA CHLORIDE 0.9% 1,000 ML IV SCH (20:52)
[2022-12-23] MEDS ORDERED: SODIUM CHLORIDE 0.9% 10ML INJ IV PRN (20:52)
[2022-12-23] MEDS: DIGOXIN 0.25 MG/ML AMP IV SCH (20:52)
[2022-12-23] MEDS: METOPROLOL TAR 50 MG TAB PO SCH (21:00)
[2022-12-23] MEDS ORDERED: D50W 25 GM/50 ML SYRINGE IV PRN (21:01)
[2022-12-23] MEDS ORDERED: GLUCAGON 1 MG/VIAL IM PRN (21:01)
[2022-12-23] MEDS ORDERED: D10W 125 ML IV PRN (21:08)
[2022-12-23] MEDS: INSULIN -REGULAR HUMAN 50 UNIT/0.5 ML ML SQ SCH (21:19)
--- NOTE | 2022-12-23 21:32 | P.HP ---
Certification for Inpatient Patient admitted to: Inpatient With expected LOS: >2 Midnights Practitioner: I am a practitioner with admitting privileges, knowledge of patient current condition, hospital course, and medical plan of care. 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 HIS IS EXHAUSTED SO THEY HAVE TO PLACE HIM IN RESPITE CARE AT [place]. HE INGESTED UNKNOWN AMOUNT OF BODY WASH SPRAY SOMEHOW. HE DENIES THAT. THEY SAW THE GEL NEXT TO HIS MOUTH. HE IS WEAK, HAS RAPID A FIB, LEUKOCYTOSIS, ACUTE ON CHRONIC RENAL FAILURE AND PNEUMONIA. Allergies No Known Allergies Allergy (Verified 04/14/20 21:15) Home medications list reviewed: Yes Home Medications: Amlodipine Besylate 5 mg PO DAILY 04/06/21 Atorvastatin Calcium 40 mg PO BEDTIME 04/06/21 Dapagliflozin Propanediol [Farxiga] 5 mg PO DAILY 04/06/21 Enzalutamide [Xtandi] 40 mg PO TID 04/06/21 Fenofibrate [Tricor*] 145 mg PO DAILY 04/06/21 Gabapentin 300 mg PO BID 04/06/21 Insulin Glargine,Hum.rec.anlog [Basaglar Kwikpen U-100] 50 units SQ BEDTIME 04/06/21 Latanoprost [Xalatan] 2.5 ml OP DAILY 04/06/21 Montelukast [Singulair*] 1 tab PO BEDTIME 04/06/21 Sertraline [Zoloft*] 50 mg PO BID #60 tab 04/07/21 - Past Medical/Surgical History Diabetic: Yes -: IDDM -: COPD -: hyperlipidemia -: HTN -: prostate CA -: arthritis -: pneumonia -: Prostate removal -: ileostomy -: trachea resection -: tonsillectomy - Family History Father -: Heart disease, Cancer Mother -: Heart disease - Social History Smoking Status: Unknown if ever smoked Alcohol use: No CD- Drugs: No Caffeine use: No Place of Residence: [facility] Review of Systems 10-point ROS is otherwise unremarkable General: Weakness, Malaise Respiratory: As per HPI Physical Examination - Vital Signs Temperature: 98.2 F Blood Pressure: 111/60 Pulse: 121 Respirations: 18 Pulse Ox (%): 100 - Physical Exam General: Oriented x3, Moderate distress, Severe distress, Obese HEENT: Atraumatic, PERRLA, Mucous membr. moist/pink, EOMI, Sclerae nonicteric Neck: Supple, 2+ carotid pulse no bruit, No LAD, Without JVD or thyroid abnormality Respiratory: Clear to auscultation bilaterally, Normal air movement Cardiovascular: Abnormal S1 S2 Gastrointestinal: Normal bowel sounds, No tenderness Musculoskeletal: No tenderness Integumentary: No rashes Neurological: Other (WEAK, GEN.), Abnormal affect Lymphatics: No axilla or inguinal lymphadenopathy - Studies Laboratory Data (last 24 hrs) 12/23/22 13:10: Sodium 130 L, Potassium 4.7, BUN 87 H, Creatinine 3.19 H, Glucose 423 H*, Magnesium 2.2, Total Bilirubin 1.0, AST 12 L, ALT 18, Alkaline Phosphatase 69, Lipase 37 12/23/22 12:25: PT 16.1 H, INR 1.46 12/23/22 12:25: WBC 22.10 H, Hgb 9.4 L, Hct 29.6 L, Plt Count 410 H Assessment and Plan - Problems (Diagnosis) (1) Septic shock Current Visit: Yes Status: Acute Plan: BOLUS IV FLUIDS GIVEN. HYPOTENSION PNEUMONIA AND UTI LIKELY CAUSES PROGNOSIS POOR. HE IS ON HOSPICE UNTIL THIS ADMISSION. I PLACED HIM ON HOSPICE JUST ABOUT LESS THAN A MONTH AGO WHEN I SAW THAT DESPITE 10 SERIOUS ISSUES THAT WERE STABLE FOR 2 YEARS, HE NOW WAS GETTING WORSE. IV ZOSYN. PROGNOSIS POOR. . (2) Chemical pneumonia Current Visit: Yes Status: Acute Plan: HIP (3) Acute on chronic renal failure Current Visit: No Status: Acute Plan: IV FLUIDS DAILY LAB. Qualifiers: Chronic kidney disease stage: stage 4 (severe) (4) Metastatic malignant neoplasm to prostate Current Visit: No Status: Chronic - Advance Directives Does patient have a Living Will: No Does patient have a Durable POA for Healthcare: Yes
[2022-12-23] MEDS ORDERED: SODIUM CHL 0.9% 1000 ML BAG IV ONE (21:42)
[2022-12-24] MEDS ORDERED: DIGOXIN 0.25 MG/ML AMP ONE (00:08)
[2022-12-24] MEDS ORDERED: NA CHLORIDE 0.9% 1,000 ML ONE ×2 (00:08→08:29)
[2022-12-24 02:37] LABS: Absolute Lymphocytes (CBC) 0.6 K/uL (0.7-4.9); Hematocrit 25.9 % (39.6-49.0); Lymphocytes % 3.1 % (15.3-44.8); MCV 91.8 fL (80-100); MPV 8.9 fL (7.6-11.3); RBC Red Blood Cell Count 2.82 M/uL (4.33-5.43)
[2022-12-24 02:50] LABS: Potassium 4.9 mEq/L (3.5-5.1)
[2022-12-24] MEDS: ALBUTEROL 2.5 MG/3 ML NEB SOL NEB SCH ×4 (02:50→19:35)
[2022-12-24] MEDS: DIGOXIN 0.25 MG/ML AMP IV SCH (02:52)
[2022-12-24] MEDS ORDERED: ALBUTEROL 2.5 MG/3 ML NEB SOL ONE ×2 (02:53→07:34)
[2022-12-24] MEDS: NA CHLORIDE 0.9% 1,000 ML IV SCH ×3 (06:52→17:58)
[2022-12-24] MEDS: INSULIN -REGULAR HUMAN 50 UNIT/0.5 ML ML SQ SCH ×4 (07:30→21:00)
[2022-12-24] MEDS ORDERED: INSULIN -REGULAR HUMAN 50 UNIT/0.5 ML ML SQ SCH (07:30)
--- NOTE | 2022-12-24 07:51 | RAD REPORT ---
EXAM DESCRIPTION: RAD - Chest Single View - 12/24/2022 6:16 am CLINICAL HISTORY: Chest Pain COMPARISON: Chest Single View dated 12/23/2022; Chest Single View dated 12/05/2022; Chest Single View dated 07/05/2022; Chest Pa And Lat (2 Views) dated 04/06/2021 FINDINGS: Lines: None. Lungs: No evidence of edema or pneumonia. Pleural: No significant pleural effusions or pneumothorax. Cardiac: The heart size is within normal limits. Mediastinum: Within normal limits. Bones: No acute fractures. Other: None IMPRESSION: No acute cardiopulmonary disease.
[2022-12-24] MEDS ORDERED: PANTOPRAZOLE 40 MG INJ ONE (08:28)
[2022-12-24] MEDS ORDERED: ENOXAPARIN 100 MG/ML SYR SQ ONE (08:28)
[2022-12-24] MEDS ORDERED: METOPROLOL TAR 50 MG TAB ONE (08:28)
[2022-12-24] MEDS ORDERED: ASPIRIN EC 81 MG TAB PO ONE (08:28)
[2022-12-24] MEDS ORDERED: PIPERACIL/TAZO 3.375 GM VIAL IV ONE (08:29)
[2022-12-24] MEDS: ASPIRIN EC 81 MG TAB PO SCH (08:36)
[2022-12-24] MEDS: PIPER TAZO 3.375 GM in NA CHLORIDE 0.9% 100 ML IV SCH ×2 (08:37→22:37)
[2022-12-24] MEDS: PANTOPRAZOLE 40 MG INJ IVP SCH (08:37)
[2022-12-24] MEDS ORDERED: NA CHLORIDE 0.9% 100 ML ONE (08:38)
[2022-12-24] MEDS ORDERED: ENOXAPARIN 100 MG/ML SYR SQ SCH (09:00)
[2022-12-24] MEDS: METOPROLOL TAR 50 MG TAB PO SCH ×2 (09:00→22:37)
[2022-12-24] MEDS ORDERED: HYDROMORPHONE HCL 1 MG/ML INJ IV PRN (12:06)
--- NOTE | 2022-12-24 12:38 | EKG ---
Test Date: 2022-12-23 Test Time: 15:08:55 Patient Representative: SUNG MEASUREMENT RESULTS: Intervals: Rate: 122 AR: QRSD: 118 QT: 326 QTc: 464 [place]: P: AR: QRS: -64 T: 106 INTERPRETIVE STATEMENTS: Accelerated Junctional rhythm Left axis deviation Inferior infarct, age undetermined Anterolateral infarct, age undetermined Abnormal ECG Compared to ECG 12/05/2022 12:06:33 Accelerated junctional rhythm now present Left ventricular hypertrophy no longer present Early repolarization no longer present Myocardial infarct finding still present Electronically Signed On 12-24-22 12:36:36 CDT by Ole Guthrie
--- NOTE | 2022-12-24 17:57 | P.PN ---
Subjective Date of Service: 12/24/22 Chief Complaint: WEAK Subjective: Improving ANTHONY IS SOME BETTER. HE IS NOT IN ACUTE DISTRESS BUT IS VERY WEAK. HE HAS NO PAIN. Review of Systems 10-point ROS is otherwise unremarkable General: Weakness Physical Examination - Vital Signs Temperature: 97.2 F Blood Pressure: 122/67 Pulse: 106 Respirations: 16 Pulse Ox (%): 99 - Physical Exam General: Oriented x3, Mild distress, Obese HEENT: Atraumatic, PERRLA, EOMI Neck: Supple, JVD not distended Respiratory: Clear to auscultation bilaterally, Normal air movement Cardiovascular: Regular rate/rhythm, Normal S1 S2 Gastrointestinal: Normal bowel sounds, No tenderness Musculoskeletal: No tenderness Integumentary: No rashes Neurological: Normal speech, Normal tone, Normal affect Lymphatics: No axilla or inguinal lymphadenopathy - Studies Microbiology Data (last 24 hrs): 12/23/22 13:10 Blood - Blood Blood Culture Gram Stain - Final 12/23/22 13:10 Blood - Blood Gram Stain - Final 12/23/22 12:25 Blood - Blood Gram Stain - Final Medications List Reviewed: Yes Assessment And Plan - Current Problems (Diagnosis) (1) Septic shock Current Visit: Yes Status: Acute Plan: BOLUS IV FLUIDS GIVEN. HYPOTENSION PNEUMONIA AND UTI LIKELY CAUSES PROGNOSIS POOR. HE IS ON HOSPICE UNTIL THIS ADMISSION. I PLACED HIM ON HOSPICE JUST ABOUT LESS THAN A MONTH AGO WHEN I SAW THAT DESPITE 10 SERIOUS ISSUES THAT WERE STABLE FOR 2 YEARS, HE NOW WAS GETTING WORSE. IV ZOSYN. PROGNOSIS POOR. . CONT MEDS. (2) Chemical pneumonia Current Visit: Yes Status: Acute Plan: HIP (3) Acute on chronic renal failure Current Visit: No Status: Acute Plan: IV FLUIDS DAILY LAB. Qualifiers: Chronic kidney disease stage: stage 4 (severe) (4) Metastatic malignant neoplasm to prostate Current Visit: No Status: Chronic Plan: HE SHOULD GO BACK ON HOSPICE I CALLED [facility] WHO HAS TAKEN ARE OF HIM UNTIL ADMISSION TO LET THEM KNOW THAT WANTS TO CHANGE NH.
[2022-12-25] MEDS: ALBUTEROL 2.5 MG/3 ML NEB SOL NEB SCH ×3 (01:25→13:50)
[2022-12-25 05:01] VITALS: O2SAT 97
[2022-12-25 07:40] LABS: Absolute Lymphocytes (CBC) 0.9 K/uL (0.7-4.9); Lymphocytes % 4.9 % (15.3-44.8); MCV 92.7 fL (80-100); MPV 8.8 fL (7.6-11.3); RBC Red Blood Cell Count 3.35 M/uL (4.33-5.43)
[2022-12-25 07:42] LABS: Potassium 4.9 mEq/L (3.5-5.1)
--- NOTE | 2022-12-25 08:20 | EKG ---
Test Date: 2022-12-23 Test Time: 12:06:43 Supervisor Type Disk Quality Control: SUNG MEASUREMENT RESULTS: Intervals: Rate: 121 NC: QRSD: 110 QT: 328 QTc: 465 [place]: P: NC: QRS: -62 T: 100 INTERPRETIVE STATEMENTS: Atrial fibrillation with rapid ventricular response with a competing junctional pacemaker with premature ventricular or aberran Left axis deviation RSR' or QR pattern in V1 suggests right ventricular conduction delay Minimal voltage criteria for LVH, may be normal variant Inferior infarct, age undetermined Anterolateral infarct, age undetermined Abnormal ECG Compared to ECG 12/05/2022 12:06:33 Ventricular premature complex(es) now present Early repolarization no longer present Myocardial infarct finding still present Electronically Signed On 12-25-22 08:17:43 CDT by Rylan Foster
[2022-12-25] MEDS ORDERED: FLUTICASONE 50MCG NASAL SPRAY NAS SCH (09:00)
[2022-12-25] MEDS ORDERED: ENOXAPARIN 30 MG/0.3 ML SQ SCH (09:00)
[2022-12-25] MEDS ORDERED: INSULIN GLARGINE 100 UNIT/ML SQ SCH (09:00)
[2022-12-25] MEDS: INSULIN -REGULAR HUMAN 50 UNIT/0.5 ML ML SQ SCH ×3 (09:15→16:30)
[2022-12-25] MEDS: METOPROLOL TAR 50 MG TAB PO SCH (09:16)
[2022-12-25] MEDS: ASPIRIN EC 81 MG TAB PO SCH (09:16)
[2022-12-25] MEDS: NA CHLORIDE 0.9% 1,000 ML IV SCH (09:17)
[2022-12-25] MEDS: PANTOPRAZOLE 40 MG INJ IVP SCH (09:17)
[2022-12-25] MEDS: PIPER TAZO 3.375 GM in NA CHLORIDE 0.9% 100 ML IV SCH (10:26)
[2022-12-25 13:07] LABS: Blood Morphology Comment NOT SEEN (NOT SEEN); Platelet Estimate ADEQ
[2022-12-25 16:56] VITALS: BP 143/65; TEMP 96.9
--- NOTE | 2022-12-30 21:10 | P.DS ---
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 HIS IS EXHAUSTED SO THEY HAVE TO PLACE HIM IN RESPITE CARE AT [place]. HE INGESTED UNKNOWN AMOUNT OF BODY WASH SPRAY SOMEHOW. HE DENIES THAT. THEY SAW THE GEL NEXT TO HIS MOUTH. HE IS WEAK, HAS RAPID A FIB, LEUKOCYTOSIS, ACUTE ON CHRONIC RENAL FAILURE AND PNEUMONIA. Hospital Course: MR. EMERY IS A MORBIDLY OBESE GM WITH STAGE 4 PROSTATE CANCER, CKD 4, HTN, SEVERE ANXIETY, COPD, WHO RECENTLY WAS PLACED ON HOSPICE HE STARTED TO GET WORSE FROM HIS CHRONIC SYMPTOMS. HE ACCIDENTALLY SPRAYED SOME OF BODY WASH INTO HIS MOUTH, NO ONE KNOWS HOW MUCH. HE DEVELOPED ASPIRATION PNEUMONIA, RAPID A FIB AND WAS QUITE UNCOMOFRTABLE. WANTED HIM BACK IN [place] AND BACK ON HOSPICE. I AGREED. HE DOES NOT HAVE MUCH LONG TO LIVE. JUST A FEW DAYS LATER BEFORE THIS NOTE HE EXPECTED COMFORTABLY CLOSE TO HIS FAMILY. Vital Signs/Physical Exam: Temp Pulse Resp BP Pulse Ox 96.9 F 104 H 20 143/65 H 94 12/25/22 16:00 12/25/22 16:00 12/25/22 16:00 12/25/22 16:00 12/25/22 16:00 Laboratory Data at Discharge: WBC 17.50 thou/uL (4.3-10.9) H 12/25/22 07:21 Hgb 9.9 g/dL (13.6-17.9) L 12/25/22 07:21 Hct 31.0 % (39.6-49.0) L 12/25/22 07:21 Plt Count 437 thou/uL (152-406) H 12/25/22 07:21 PT 16.1 SECONDS (9.5-12.5) H 12/23/22 12:25 INR 1.46 12/23/22 12:25 Sodium 136 mEq/L (136-145) 12/25/22 07:21 Potassium 4.9 mEq/L (3.5-5.1) 12/25/22 07:21 BUN 74 mg/dL (7-18) H 12/25/22 07:21 Creatinine 2.85 mg/dL (0.70-1.30) H 12/25/22 07:21 Glucose 220 mg/dL (74-106) H 12/25/22 07:21 Magnesium 2.2 mg/dL (1.6-2.4) 12/23/22 13:10 Total Bilirubin 1.0 mg/dL (0.2-1.0) 12/23/22 13:10 AST 12 U/L (15-37) L 12/23/22 13:10 ALT 18 U/L (16-61) 12/23/22 13:10 Alkaline Phosphatase 69 U/L (45-117) 12/23/22 13:10 Lipase 37 U/L (13-75) 12/23/22 13:10 Home Medications: Amlodipine Besylate 5 mg PO DAILY 04/06/21 Atorvastatin Calcium 40 mg PO BEDTIME 04/06/21 Dapagliflozin Propanediol [Farxiga] 5 mg PO DAILY 04/06/21 Enzalutamide [Xtandi] 40 mg PO TID 04/06/21 Fenofibrate [Tricor*] 145 mg PO DAILY 04/06/21 Gabapentin 300 mg PO BID 04/06/21 Insulin Glargine,Hum.rec.anlog [Basaglar Kwikpen U-100] 50 units SQ BEDTIME 04/06/21 Latanoprost [Xalatan] 2.5 ml OP DAILY 04/06/21 Montelukast [Singulair*] 1 tab PO BEDTIME 04/06/21 Sertraline [Zoloft*] 50 mg PO BID #60 tab 04/07/21 Followup: Izaiah Segal MD [Primary Care Provider] -
== END 2022-12-25 19:30 | disposition hospice, inpatient (51) | DRG 871 ==
LOC: ER 11:42 → ERHOLD 15:18 → 2ND 12-24 11:48
PROVIDERS: ADMIT Internal Medicine; ATTEND Internal Medicine
DX: A41.9 Sepsis, unspecified organism (principal); J69.0 Pneumonitis due to inhalation of food and vomit; R65.21 Severe sepsis with septic shock; C79.82 Secondary malignant neoplasm of genital organs; I48.19 Other persistent atrial fibrillation; E66.2 Morbid (severe) obesity with alveolar hypoventilation; N17.9 Acute kidney failure, unspecified; N39.0 Urinary tract infection, site not specified; N18.4 Chronic kidney disease, stage 4 (severe); I12.9 Hypertensive chronic kidney disease with stage 1 through stage 4 chronic kidney disease, or unspecified chronic kidney disease; E11.22 Type 2 diabetes mellitus with diabetic chronic kidney disease; E11.65 Type 2 diabetes mellitus with hyperglycemia; D63.1 Anemia in chronic kidney disease; F41.9 Anxiety disorder, unspecified; J44.9 Chronic obstructive pulmonary disease, unspecified; E78.5 Hyperlipidemia, unspecified; Z66 Do not resuscitate; Z79.4 Long term (current) use of insulin; Z68.31 Body mass index [BMI] 31.0-31.9, adult; Z85.46 Personal history of malignant neoplasm of prostate; Z90.79 Acquired absence of other genital organ(s); Z91.048 Other nonmedicinal substance allergy status; Z79.899 Other long term (current) drug therapy
CPT/HCPCS: 36415; 51702; 70450; 71045; 71250; 72125; 80048; 80076; 81001; 82947; 83605; 83690; 83735; 83880; 84443; 84484; 85025; 85610; 87040; 87077; 87086; 87088; 87186; 87205; 93005; 99285; C9113; J0696; J1160; J1170; J1650; J1815; J2543; J7030; J7613